=== PATIENT | female | born 1960 | race Caucasian/White ===

== ENCOUNTER 2016-09-12 09:45 | Emergency (ER) | payer MEDICARE, MEDICAID ==
[2016-09-12] MEDS ORDERED: Albuterol/Ipratropium 3.0-0.5 MG/3 ML Neb Soln NEB ONE (10:40)
--- NOTE | 2016-09-12 11:20 | EDM.PDOC ---
[id number]: POSSIBLE PNEMONIA 02 SATS 83-85% Time Seen by Provider: 09/12/16 10:20 Source: Reports: Patient, Provider History Limitations: Reports: No limitations - History of Present Illness INITIAL COMMENTS - FREE TEXT/NARRATIVE: 48-year-old female with COPD and chronic lung lesions was in the [facility] yesterday for a pulmonary consultation. A CT of her chest was obtained and results were discussed with her. She had low oxygen saturations in the 60s, which reshma with oxygen supplementation and they wanted to admit her to the hospital but she refused. She got home okay, today she went to the clinic for a recheck and her sats were in the 80s so they sent her immediately to the emergency room. On oxygen 3 L she is at 94%. She has no fevers or chills, no productive cough or other complaints. Severity: moderate Improves with: Reports: Other (Oxygen markedly improves her symptoms and O2 saturation) - Related Data Allergies/ADRs: Allergies Allergy/AdvReac Type Severity Reaction Status Date / Time No Known Allergies Allergy Verified 09/12/16 10:16 Home Meds: Home Meds Albuterol Sulfate [Proair Hfa] 2 puff INH QID 10/12/14 [History] Albuterol [Proventil Neb Soln] 1 vial INH QID PRN 10/12/14 [History] Aspirin [Halfprin] 1 tab PO DAILY 10/12/14 [History] Budesonide/Formoterol [Symbicort 160-4.5 MCG] 2 puff INH BID 10/12/14 [History] Cholecalciferol (Vitamin D3) [Vitamin D] 1 cap PO DAILY 10/12/14 [History] Clopidogrel [Plavix] 1 tab PO DAILY 10/12/14 [History] Metoprolol Tartrate 1 tab PO BID 10/12/14 [History] Mirtazapine [Remeron] 1 tab PO BEDTIME 10/12/14 [History] Nitroglycerin [Nitrostat] 1 tab SL ASDIRECTED 10/12/14 [History] Tiotropium [Spiriva HandiHaler] 1 cap INH DAILY 10/12/14 [History] tiZANidine HCl [Zanaflex] 1 tab PO Q8H PRN 10/12/14 [History] Past Medical History HEENT History: Reports: Impaired vision Cardiovascular History: Reports: [place], SOB on exertion Respiratory History: Reports: COPD 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: , 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 , Other (see below) Other OB/BYN History: c sections x3 Psychiatric History: Reports: Depression Oncologic (Cancer) History: Reports: Lung Other Oncologic History: tumor right leg x3 - Infectious Disease History Infectious Disease History: Reports: Chicken pox - Past Surgical History HEENT Surgical History: Reports: Tonsillectomy Other Neurological Surgeries/Procedures: cervical spine surgery Musculoskeletal Surgical History: Reports: Other (see below) Other Musculoskeletal Surgeries/Procedures:: neck surgery Social & Family History - Tobacco Use Smoking Status *Q: Never Smoker Years of Tobacco use: 30 Packs/Tins Daily: 1 Used Tobacco, but Quit: Yes Month Tobacco Last Used: september Second Hand Smoke Exposure: No - Caffeine Use Caffeine Use: Reports: Soda - Recreational Drug Use Recreational Drug Use: No ED ROS GENERAL - Review of Systems Review Of Systems: See Below Constitutional: Denies: fever, chills HEENT: Reports: No symptoms Respiratory: Reports: Shortness of Breath, Cough. Denies: Sputum Cardiovascular: Denies: Chest pain Endocrine: Reports: fatigue GI/Abdominal: Denies: Abdominal pain : Reports: no symptoms Musculoskeletal: Reports: no symptoms Skin: Reports: no symptoms Neurological: Denies: Headache Psychiatric: Reports: No symptoms ED EXAM, GENERAL - Physical Exam Exam: See Below Exam Limited By: No limitations General Appearance: alert, mild distress (Had some mild increased respiratory effort but overall fairly comfortable) Respiratory/Chest: decreased breath sounds (Diffuse decreased breath sounds) Cardiovascular: regular rate, rhythm Extremities: normal inspection. No: pedal edema Neurological: alert, oriented Psychiatric: normal affect, normal mood Skin Exam: Warm, Dry Course - Vital Signs Last Recorded V/S: Last Vital Signs Temp 96.8 F 09/12/16 10:29 Pulse 66 09/12/16 11:24 Resp 18 09/12/16 11:24 BP 115/75 09/12/16 11:24 Pulse Ox 92 L 09/12/16 11:24 - Orders/Labs/Meds Orders: Active Orders 24 hr Category Date Time Status RT Aerosol Therapy [RC] ASDIRECTED Care 09/12/16 10:41 Active Meds: Medications Discontinued Medications Generic Name Dose Route Start Last Admin Trade Name Freq PRN Reason Stop Dose Admin Albuterol/Ipratropium 3 ml 09/12/16 10:40 09/12/16 10:49 Duoneb 3.0-0.5 Mg/3 Ml NEB 09/12/16 10:41 3 ml ONETIME ONE Administration Methylprednisolone Sodium Succinate 125 mg 09/12/16 12:19 09/12/16 12:23 Solu-Medrol IVPUSH 09/12/16 12:20 125 mg ONETIME ONE Administration - Re-Assessments/Exams Free Text/Narrative Re-Assessment/Exam: 09/12/16 11:20 Patient was given a DuoNeb, and a two-view chest x-ray was obtained while the patient was off of O2. Her O2 saturations were rechecked when she returned from the chest x-ray. 09/12/16 12:35 O2 saturations on return from x-ray were 88-91% and she had no significant shortness of breath. Review of her past records show she has chronic advanced COPD and likely her O2 saturations are not normal on her best day. She'll be placed on a course of Zithromax, and 60 mg of prednisone daily starting tomorrow and was given 125 mg of Solu-Medrol IV today. She will return if worsening. Departure - Departure Time of Disposition: 12:45 Disposition: Home, Self-Care 01 Condition: fair Clinical Impression: COPD exacerbation, Chronic respiratory failure with hypoxia Instructions: Chronic Obstructive Pulmonary Disease, [id number] Referrals: Treva Palacios MD [Primary Care Provider] - Forms: ED Department Discharge Care Plan Goals: Take antibiotic as prescribed, and takes 6 pills of prednisone each morning with food for the next 5 days starting tomorrow, Friday. Continue your other regular medications and return if worsening or concerns. - My Orders Last 24 Hours: My Active Orders 09/12/16 10:41 RT Aerosol Therapy [RC] ASDIRECTED - Assessment/Plan Last 24 Hours: My Active Orders 09/12/16 10:41 RT Aerosol Therapy [RC] ASDIRECTED
[2016-09-12 11:26] VITALS: BP 115/75
[2016-09-12] MEDS ORDERED: methylPREDNISolone Sodium Succinate 125 MG/2 ML SDV IVPUSH ONE (12:19)
--- NOTE | 2016-09-12 12:30 | CR ---
Heart size within normal limits. Postsurgical changes at the lungs medially. No focal consolidation. No pneumothorax. Nodular densities likely indicate nipple shadows and could be confirmed with nippl e markers.
== END 2016-09-12 12:45 | disposition home or self-care (01) ==
LOC: JP.ED 09:45
DX: J96.11 Chronic respiratory failure with hypoxia (principal); J44.1 Chronic obstructive pulmonary disease with (acute) exacerbation; I25.2 Old myocardial infarction; F32.9 Major depressive disorder, single episode, unspecified; Z98.890 Other specified postprocedural states; Z79.82 Long term (current) use of aspirin; Z79.899 Other long term (current) drug therapy
CPT/HCPCS: 71020; 94640; 96374; 99284; J2930; J7620

== ENCOUNTER 2017-09-20 15:30 | Inpatient (IN) | payer MEDICARE, MEDICAID ==
[2017-09-20] MEDS ORDERED: Albuterol 0.083% 2.5 MG/3 ML Neb Soln NEB ONE (17:14)
[2017-09-20] MEDS ORDERED: methylPREDNISolone Sodium Succinate 125 MG/2 ML SDV IVPUSH ONE (17:16)
--- NOTE | 2017-09-20 17:17 | EDM.PDOC ---
ED HPI GENERAL MEDICAL PROBLEM - General Chief Complaint: Respiratory Problem Stated Complaint: ILLNESS/SOB Time Seen by Provider: 09/20/17 17:16 Source of Information: Reports: Patient History Limitations: Reports: No Limitations - History of Present Illness INITIAL COMMENTS - FREE TEXT/NARRATIVE: pt arrived with low o2 sats in the low 8o range. She is not on o2 at home. Onset: Gradual Duration: Hour(s): Location: Reports: Chest Associated Symptoms: Reports: Cough, Fever/Chills, Shortness of Breath - Related Data Allergies Allergy/AdvReac Type Severity Reaction Status Date / Time No Known Allergies Allergy Verified 09/12/16 10:16 Home Meds: Home Meds Albuterol Sulfate [Proair Hfa] 2 puff INH QID 10/12/14 [History] Albuterol [Proventil Neb Soln] 1 vial INH QID PRN 10/12/14 [History] Aspirin [Halfprin] 1 tab PO DAILY 10/12/14 [History] Budesonide/Formoterol [Symbicort 160-4.5 MCG] 2 puff INH BID 10/12/14 [History] Cholecalciferol (Vitamin D3) [Vitamin D] 1 cap PO DAILY 10/12/14 [History] Clopidogrel [Plavix] 1 tab PO DAILY 10/12/14 [History] Metoprolol Tartrate 1 tab PO BID 10/12/14 [History] Mirtazapine [Remeron] 1 tab PO BEDTIME 10/12/14 [History] Nitroglycerin [Nitrostat] 1 tab SL ASDIRECTED 10/12/14 [History] Tiotropium [Spiriva HandiHaler] 1 cap INH DAILY 10/12/14 [History] tiZANidine HCl [Zanaflex] 1 tab PO Q8H PRN 10/12/14 [History] atorvaSTATin [Lipitor] 1 tab PO BEDTIME 09/20/17 [History] Past Medical History HEENT History: Reports: Impaired Vision Cardiovascular History: Reports: [place], SOB on Exertion Respiratory History: Reports: 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: , 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 , Other (See Below) Other OB/BYN History: c sections x3 Psychiatric History: Reports: Depression Oncologic (Cancer) History: Reports: Lung Other Oncologic History: tumor right leg x3 - Infectious Disease History Infectious Disease History: Reports: Chicken Pox - Past Surgical History Other Neurological Surgeries/Procedures: cervical spine surgery Musculoskeletal Surgical History: Reports: Other (See Below) Social & Family History - Tobacco Use Smoking Status *Q: Former Smoker Years of Tobacco use: 30 Packs/Tins Daily: 1 Used Tobacco, but Quit: Yes Month/Year Tobacco Last Used: 15yrs Second Hand Smoke Exposure: No - Caffeine Use Caffeine Use: Reports: Soda - Recreational Drug Use Recreational Drug Use: No ED ROS GENERAL - Review of Systems Review Of Systems: See Below Constitutional: Reports: Fever, Other ( pt had a temp of 100. ) HEENT: Reports: No Symptoms Respiratory: Reports: Shortness of Breath, Wheezing, Cough, Sputum Cardiovascular: Reports: No Symptoms Endocrine: Reports: No Symptoms GI/Abdominal: Reports: No Symptoms : Reports: No Symptoms Musculoskeletal: Reports: No Symptoms Skin: Reports: No Symptoms Neurological: Reports: No Symptoms ED EXAM, GENERAL - Physical Exam Exam: See Below Free Text/Narrative:: pt arrived with sob and wheezing. She was very sob on arrival and clayton o2 sats in the 79 range. She was on 3 liters at first and she is now on 2 liters. Exam Limited By: No Limitations General Appearance: Alert, Mild Distress Ears: Normal TMs Nose: Normal Inspection Throat/Mouth: Normal Inspection, Other (mouth does look irritated. ) Neck: Normal Inspection Respiratory/Chest: Respiratory Distress, Decreased Breath Sounds, Wheezing, Other (pt has had increased cough with some sputum) Cardiovascular: Regular Rate, Rhythm GI/Abdominal: Soft, Non-Tender (Female) Exam: Deferred Rectal (Female) Exam: Deferred Back Exam: Normal Inspection Extremities: Normal Inspection Neurological: Alert, Oriented, Normal Cognition Psychiatric: Anxious Course - Vital Signs Last Recorded V/S: Last Vital Signs Temp 35.7 C 09/20/17 16:09 Pulse 92 09/20/17 18:14 Resp 22 H 09/20/17 18:14 BP 156/70 H 09/20/17 18:14 Pulse Ox 90 L 09/20/17 18:14 - Orders/Labs/Meds Orders: Active Orders 24 hr Category Date Time Status RT Aerosol Therapy [RC] ASDIRECTED Care 09/20/17 17:14 Active Chest 2V [CR] Stat Exams 09/20/17 17:14 Taken Sodium Chloride 0.9% [Normal Saline] 1,000 ml Med 09/20/17 18:30 Ordered IV ASDIRECTED Sodium Chloride 0.9% [Saline Flush] Med 09/20/17 17:15 Active 10 ml FLUSH ASDIRECTED PRN Saline Lock Insert [OM.PC] Routine Oth 09/20/17 17:15 Ordered Medication Orders Sodium Chloride (Normal Saline) 1,000 mls @ 250 mls/hr IV ASDIRECTED HERBER Sodium Chloride (Saline Flush) 10 ml FLUSH ASDIRECTED PRN PRN Reason: Keep Vein Open Last Admin: 09/20/17 17:36 Dose: 10 ml Labs: Laboratory Tests 09/20/17 09/20/17 09/20/17 Range/Units 17:23 17:31 17:31 WBC 5.8 (4.5-11.0) K/uL RBC 5.07 (3.30-5.50) M/uL Hgb 14.7 (12.0-15.0) g/dL Hct 46.6 (36.0-48.0) % MCV 92 (80-98) fL MCH 29 (27-31) pg MCHC 32 (32-36) % Plt Count 175 (150-400) K/uL Neut % (Auto) 64 (36-66) % Lymph % (Auto) 18 L (24-44) % Carter % (Auto) 13 H (2-6) % Eos % (Auto) 5 H (2-4) % Baso % (Auto) 1 (0-1) % Puncture Site Rt.radial ABG pH 7.330 L (7.350-7.450) ABG pCO2 64.3 H (35.0-42.0) mmHg ABG pO2 57.4 L (75.0-100.0) mmHg ABG HCO3 32.9 H (22.0-26.0) mmol/L ABG Total CO2 29.4 H (21.0-25.0) mmol/L ABG O2 Saturation 85.7 L (95.0-98.0) % ABG O2 Content 17.2 (15.0-23.0) %vol ABG Base Excess 5.2 mm/L ABG Hemoglobin 14.5 (12.0-16.0) g/dL ABG Oxyhemoglobin 84.6 % ABG Carboxyhemoglobin 0.9 (0.0-1.6) % ABG Methemoglobin 0.4 % Armen Test Passed O2 Delivery Device Nasal cannula Oxygen Flow Rate 2 L Sodium 140 (140-148) mmol/L Potassium 4.0 (3.6-5.2) mmol/L Chloride 102 (100-108) mmol/L Carbon Dioxide 32 (21-32) mmol/L Anion Gap 5.6 (5.0-14.0) mmol/L BUN 14 (7-18) mg/dL Creatinine 0.7 (0.6-1.0) mg/dL Est Cr Clr Drug Dosing 57.63 mL/min Estimated GFR (MDRD) > 60 (>60) Glucose 159 H (74-106) mg/dL Calcium 9.1 (8.5-10.1) mg/dL Total Bilirubin 0.3 (0.2-1.0) mg/dL AST 51 H D (15-37) U/L ALT 43 (12-78) U/L Alkaline Phosphatase 68 (46-116) U/L Total Protein 7.4 (6.4-8.2) g/dL Albumin 3.9 (3.4-5.0) g/dL Globulin 3.5 (2.3-3.5) g/dL Albumin/Globulin Ratio 1.1 L (1.2-2.2) Meds: Medications Generic Name Dose Route Start Last Admin Trade Name Freq PRN Reason Stop Dose Admin Sodium Chloride 1,000 mls @ 250 mls/hr 09/20/17 18:30 Normal Saline IV ASDIRECTED HERBER Sodium Chloride 10 ml 09/20/17 17:15 09/20/17 17:36 Saline Flush FLUSH 10 ml ASDIRECTED PRN Administration Keep Vein Open Discontinued Medications Generic Name Dose Route Start Last Admin Trade Name Freq PRN Reason Stop Dose Admin Albuterol 2.5 mg 09/20/17 17:14 09/20/17 17:36 Proventil Neb Soln NEB 09/20/17 17:15 2.5 mg ONETIME ONE Administration Methylprednisolone Sodium Succinate 125 mg 09/20/17 17:16 09/20/17 17:36 Solu-Medrol IVPUSH 09/20/17 17:17 125 mg ONETIME ONE Administration - Re-Assessments/Exams Free Text/Narrative Re-Assessment/Exam: 09/20/17 18:21 chest xray shows severe copd. There may be an infiltrate in the rt lower lobe. Her wbc is not elevated. Her blood gases show clayton ph of 7.33 and her co2 is 64. Departure - Departure Time of Disposition: 18:23 Disposition: Admitted As Inpatient 64 Condition: Fair Clinical Impression: COPD with respiratory failure, acute, CO2 retention - Discharge Information Referrals: PCP,None [Primary Care Provider] - Forms: ED Department Discharge Care Plan Goals: admit to Dr mitchell. - My Orders Last 24 Hours: My Active Orders 09/20/17 17:14 RT Aerosol Therapy [RC] ASDIRECTED Chest 2V [CR] Stat 09/20/17 17:15 Sodium Chloride 0.9% [Saline Flush] 10 ml FLUSH ASDIRECTED PRN Saline Lock Insert [OM.PC] Routine 09/20/17 18:30 Sodium Chloride 0.9% [Normal Saline] 1,000 ml IV ASDIRECTED - Assessment/Plan Last 24 Hours: My Active Orders 09/20/17 17:14 RT Aerosol Therapy [RC] ASDIRECTED Chest 2V [CR] Stat 09/20/17 17:15 Sodium Chloride 0.9% [Saline Flush] 10 ml FLUSH ASDIRECTED PRN Saline Lock Insert [OM.PC] Routine 09/20/17 18:30 Sodium Chloride 0.9% [Normal Saline] 1,000 ml IV ASDIRECTED
[2017-09-20] MEDS: Sodium Chloride 0.9% 10 ML Syringe FLUSH PRN (17:36)
[2017-09-20] MEDS ORDERED: Sodium Chloride 0.9% 1,000 ML IV SCH (18:30)
--- NOTE | 2017-09-20 19:29 | PCM.HP ---
H&P History of Present Illness - General Date of Service: 09/20/17 Admit Problem/Dx: Admission Diagnosis/Problem Admission Diagnosis/Problem Acute bronchitis Source of Information: Patient, Family, Provider History Limitations: Reports: No Limitations - History of Present Illness Initial Comments - Free Text/Narative: Emily presents to the emergency room today with several days of progressive shortness of breath and occasional cough. Symptoms were very severe last night but she chose to wait until today for evaluation. She reports that she is short of breath with any activity and even at rest. She did have a fever of 100 last night. She has an occasional cough that has produced yellow sputum. She does not have any chest pain. She has had some nausea and upset stomach but no vomiting. Appetite has been okay. She has been weak compared to baseline but has not had any falls. No change in bowel or bladder habits. No recent antibiotics or steroids. No notable sick contacts other than possibly a niece. Workup in the emergency room was suggestive of acute bronchitis with a COPD exacerbation and respiratory failure with hypoxia and hypercapnia. She has received steroids and nebulizer treatment. She will be admitted for further management. - Related Data Allergies/Adverse Reactions: Allergies Allergy/AdvReac Type Severity Reaction Status Date / Time No Known Allergies Allergy Verified 09/12/16 10:16 Home Medications: Home Meds Albuterol Sulfate [Proair Hfa] 2 puff INH QID 10/12/14 [History] Albuterol [Proventil Neb Soln] 1 vial INH QID PRN 10/12/14 [History] Aspirin [Halfprin] 81 mg PO DAILY 10/12/14 [History] Budesonide/Formoterol [Symbicort 160-4.5 MCG] 2 puff INH BID 10/12/14 [History] Cholecalciferol (Vitamin D3) [Vitamin D] 1 cap PO DAILY 10/12/14 [History] Clopidogrel [Plavix] 75 mg PO DAILY 10/12/14 [History] Mirtazapine [Remeron] 30 mg PO BEDTIME 10/12/14 [History] Nitroglycerin [Nitrostat] 1 tab SL ASDIRECTED 10/12/14 [History] Tiotropium [Spiriva HandiHaler] 18 mcg INH DAILY 10/12/14 [History] tiZANidine HCl [Zanaflex] 4 mg PO Q8H PRN 10/12/14 [History] Metoprolol Tartrate 12.5 mg PO BID 09/20/17 [History] atorvaSTATin [Lipitor] 80 mg PO BEDTIME 09/20/17 [History] Past Medical History HEENT History: Reports: Impaired Vision 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, SOB 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 Respiratory History: Reports: 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: , 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 , 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 (See Below) Other OB/BYN History: c sections x3 Psychiatric History: Reports: Depression Oncologic (Cancer) History: Reports: Lung Other Oncologic History: tumor right leg x3 - Infectious Disease History Infectious Disease History: Reports: Chicken Pox - Past Surgical History Other Neurological Surgeries/Procedures: cervical spine surgery Musculoskeletal Surgical History: Reports: Other (See Below) Social & Family History - Family History Cardiac: Reports: CAD - Tobacco Use Smoking Status *Q: Former Smoker Years of Tobacco use: 30 Packs/Tins Daily: 1 Used Tobacco, but Quit: Yes Month/Year Tobacco Last Used: 15yrs Second Hand Smoke Exposure: No - Caffeine Use Caffeine Use: Reports: Soda - Alcohol Use Alcohol Use History: No - Recreational Drug Use Recreational Drug Use: No H&P Review of Systems - Review of Systems: Review Of Systems: See Below Free Text/Narrative: A complete 12 point review of systems was obtained. Pertinent positives and negatives are noted in the history of present illness. All other systems were reviewed and were negative except as noted. Exam - Exam Exam: See Below - Vital Signs Vital Signs: Last Vital Signs Temp 35.7 C 09/20/17 16:09 Pulse 92 09/20/17 18:14 Resp 22 H 09/20/17 18:14 BP 156/70 H 09/20/17 18:14 Pulse Ox 90 L 09/20/17 18:14 Weight: 42.184 kg - Exam Quality Assessment: Supplemental Oxygen General: Alert, Oriented, Cooperative, Mild Distress HEENT: Conjunctiva Clear. No: Mucosa Moist & [place] (dry), Scleral Icterus Neck: Supple, Trachea Midline. No: Lymphadenopathy Lungs: Wheezing (Diffuse expiratory). No: Normal Respiratory Effort (Increased work of breathing), Crackles Cardiovascular: Regular Rate, Regular Rhythm GI/Abdominal Exam: Normal Bowel Sounds, Soft, Non-Tender, No Distention Back Exam: Normal Inspection, Full Range of Motion Extremities: Normal Inspection, No Pedal Edema. No: Increased Warmth Skin: Warm, Dry Neuro Extensive - Mental Status: Alert, Oriented x3, Nl Response to Commands Neuro Extensive - Motor, Sensory, Reflexes: No: Dysarthria, Abnormal Motor, Tremor Psychiatric: Alert, Normal Affect - Patient Data Lab Results Last 24 hrs: Laboratory Results - last 24 hr 09/20/17 09/20/17 09/20/17 Range/Units 17:23 17:31 17:31 WBC 5.8 (4.5-11.0) K/uL RBC 5.07 (3.30-5.50) M/uL Hgb 14.7 (12.0-15.0) g/dL Hct 46.6 (36.0-48.0) % MCV 92 (80-98) fL MCH 29 (27-31) pg MCHC 32 (32-36) % Plt Count 175 (150-400) K/uL Neut % (Auto) 64 (36-66) % Lymph % (Auto) 18 L (24-44) % [place] % (Auto) 13 H (2-6) % Eos % (Auto) 5 H (2-4) % Baso % (Auto) 1 (0-1) % Puncture Site Rt.radial ABG pH 7.330 L (7.350-7.450) ABG pCO2 64.3 H (35.0-42.0) mmHg ABG pO2 57.4 L (75.0-100.0) mmHg ABG HCO3 32.9 H (22.0-26.0) mmol/L ABG Total CO2 29.4 H (21.0-25.0) mmol/L ABG O2 Saturation 85.7 L (95.0-98.0) % ABG O2 Content 17.2 (15.0-23.0) %vol ABG Base Excess 5.2 mm/L ABG Hemoglobin 14.5 (12.0-16.0) g/dL ABG Oxyhemoglobin 84.6 % ABG Carboxyhemoglobin 0.9 (0.0-1.6) % ABG Methemoglobin 0.4 % Armen Test Passed O2 Delivery Device Nasal cannula Oxygen Flow Rate 2 L Sodium 140 (140-148) mmol/L Potassium 4.0 (3.6-5.2) mmol/L Chloride 102 (100-108) mmol/L Carbon Dioxide 32 (21-32) mmol/L Anion Gap 5.6 (5.0-14.0) mmol/L BUN 14 (7-18) mg/dL Creatinine 0.7 (0.6-1.0) mg/dL Est Cr Clr Drug Dosing 57.63 mL/min Estimated GFR (MDRD) > 60 (>60) Glucose 159 H (74-106) mg/dL Calcium 9.1 (8.5-10.1) mg/dL Total Bilirubin 0.3 (0.2-1.0) mg/dL AST 51 H D (15-37) U/L ALT 43 (12-78) U/L Alkaline Phosphatase 68 (46-116) U/L Total Protein 7.4 (6.4-8.2) g/dL Albumin 3.9 (3.4-5.0) g/dL Globulin 3.5 (2.3-3.5) g/dL Albumin/Globulin Ratio 1.1 L (1.2-2.2) Result Diagrams: 09/20/17 17:31 09/20/17 17:31 Imaging Impressions Last 24 hrs: Chest x-ray - images personally reviewed - there is hyperinflation but no evidence for mass, effusion or infiltrate. Heart size is normal. *Q Meaningful Use (ADM) - VTE Risk Assess *Q Each Risk Factor Represents 1 Point: Age 41 - 59 years, Serious lung disease including pneumonia, Abnormal Pulmonary Function (COPD) Total Score 1 Point Risk Factors: 3 Each Risk Factor Represents 2 Points: None Total Score 2 Point Risk Factors: 0 Each Risk Factor Represents 3 Points: None Total Score 3 Point Risk Factors: 0 Each Risk Factor Represents 5 Points: None Total Score 5 Point Risk Factors: 0 Venous Thromboembolism Risk Factor Score *Q: 3 - Problem List (1) Acute bronchitis SNOMED Code(s): 07873300 ICD Code: J20.9 - ACUTE BRONCHITIS, UNSPECIFIED Status: Acute Current Visit: Yes Qualifiers: Bronchitis organism: unspecified organism Qualified Code(s): J20.9 - Acute bronchitis, unspecified (2) COPD exacerbation SNOMED Code(s): 728814362218456 ICD Code: J44.1 - CHRONIC OBSTRUCTIVE PULMONARY DISEASE W (ACUTE) EXACERBATION Status: Acute Current Visit: No (3) Acute respiratory failure with hypoxia and hypercapnia SNOMED Code(s): 39240708, 402084714 ICD Code: J96.01 - ACUTE RESPIRATORY FAILURE WITH HYPOXIA; J96.02 - ACUTE RESPIRATORY FAILURE WITH HYPERCAPNIA Status: Acute Current Visit: Yes (4) Coronary artery disease SNOMED Code(s): 64055203 ICD Code: I25.10 - ATHSCL HEART DISEASE OF [place] CORONARY ARTERY W/O ANG PCTRS Status: Chronic Current Visit: Yes Qualifiers: Coronary Disease-Associated Artery/Lesion type: [place] artery [place] vs. transplanted heart: [place] heart Associated angina: without angina Qualified Code(s): I25.10 - Atherosclerotic heart disease of [place] coronary artery without angina pectoris Problem List Initiated/Reviewed/Updated: Yes Orders Last 24hrs: Active Orders 24 hr Category Date Time Status Patient Status Manage Transfer [TRANSFER] Routine ADT 09/20/17 19:16 Ordered RT Aerosol Therapy [RC] ASDIRECTED Care 09/20/17 17:14 Active Chest 2V [CR] Stat Exams 09/20/17 17:14 Taken Sodium Chloride 0.9% [Normal Saline] 1,000 ml Med 09/20/17 18:30 Active IV ASDIRECTED Sodium Chloride 0.9% [Saline Flush] Med 09/20/17 17:15 Active 10 ml FLUSH ASDIRECTED PRN Saline Lock Insert [OM.PC] Routine Oth 09/20/17 17:15 Ordered Resuscitation Status Routine Resus Stat 09/20/17 19:17 Ordered Medication Orders Sodium Chloride (Normal Saline) 1,000 mls @ 250 mls/hr IV ASDIRECTED HERBER Sodium Chloride (Saline Flush) 10 ml FLUSH ASDIRECTED PRN PRN Reason: Keep Vein Open Last Admin: 09/20/17 17:36 Dose: 10 ml Assessment/Plan Comment:: ASSESSMENT AND PLAN - Acute bronchitis with COPD exacerbation - complicated by acute respiratory failure with hypoxia and hypercapnia. She did have a fever and has had a change in her sputum raising concern for bacterial infection. She is a little better with treatment provided in the emergency room which included steroids and nebulizers. She is not normally on oxygen. Significant wheezing and very poor air movement. -Doxycycline -IV steroids -Scheduled and as needed nebulizers -Supplement oxygen -Continue home medications Coronary artery disease - history of myocardial infarction. No active symptoms. -Continue home medical management Maintenance issues - - DVT prophylaxis - mechanical - GI prophylaxis - not indicated - Nutrition - regular diet - Bello catheter - not indicated CODE STATUS - full code Admission justification - This patient will be admitted for inpatient services and is medically appropriate meeting medical necessity for inpatient admission as outlined in my documentation. I reasonably expect the patient will require inpatient services that span a period time over 2 midnights. I reasonably expect this patient to be discharged or transferred within 96 hours after admission to the [facility]. Disposition - anticipate discharge to home after the hospital stay Primary care physician - Dr Philip Morales M.D.
[2017-09-20] MEDS ORDERED: Benzonatate 100 MG Cap PO PRN (20:02)
[2017-09-20] MEDS ORDERED: tiZANidine 4 MG Tab PO PRN (20:02)
[2017-09-20] MEDS ORDERED: Ondansetron 4 MG Tab.DIS PO PRN (20:02)
[2017-09-20] MEDS ORDERED: Ibuprofen 600 MG Tab PO PRN (20:02)
[2017-09-20] MEDS ORDERED: Codeine/guaiFENesin 100mg-10 MG/5 ML Syrup 10 ML Cup PO PRN (20:02)
[2017-09-20] MEDS ORDERED: Acetaminophen 325 MG Tab PO PRN (20:02)
[2017-09-20] MEDS ORDERED: Formoterol/Mometasone 200-5 MCG 8.8 GM Inhaler IH SCH (21:00)
[2017-09-20] MEDS ORDERED: atorvaSTATin 20 MG Tab ONE (21:23)
[2017-09-20] MEDS: atorvaSTATin 20 MG Tab PO SCH (21:25)
[2017-09-20] MEDS: Metoprolol Tartrate 25 MG Tab PO SCH (21:26)
[2017-09-20] MEDS: Mirtazapine 15 MG Tab PO SCH (21:26)
[2017-09-20] MEDS: Albuterol/Ipratropium 3.0-0.5 MG/3 ML Neb Soln NEB SCH (21:30)
[2017-09-20] MEDS: Doxycycline 100 MG Cap PO SCH (21:33)
[2017-09-20] MEDS: Sodium Chloride 0.9% 1,000 ML IV SCH (21:54)
[2017-09-21] MEDS: Albuterol 0.083% 2.5 MG/3 ML Neb Soln NEB PRN (01:50)
[2017-09-21] MEDS: methylPREDNISolone Sodium Succinate 125 MG/2 ML SDV IVPUSH SCH ×3 (01:51→18:00)
[2017-09-21] MEDS: Morphine 10 MG/0.5 ML Oral Syringe PO PRN ×2 (01:51→21:09)
[2017-09-21] MEDS: LORazepam 0.5 MG Tab PO PRN (02:06)
[2017-09-21] MEDS: Albuterol/Ipratropium 3.0-0.5 MG/3 ML Neb Soln NEB SCH ×4 (06:10→20:27)
[2017-09-21] MEDS: Sodium Chloride 0.9% 1,000 ML IV SCH (08:01)
[2017-09-21] MEDS: Formoterol/Mometasone 200-5 MCG 8.8 GM Inhaler IH SCH ×2 (08:25→20:28)
[2017-09-21] MEDS: Tiotropium Inhaler 18 MCG Inhalation Powder Cap Kit of 5 INH SCH (08:29)
[2017-09-21] MEDS: Aspirin 81 MG Tab.EC PO SCH (08:32)
[2017-09-21] MEDS: Metoprolol Tartrate 25 MG Tab PO SCH ×2 (08:32→20:29)
[2017-09-21] MEDS ORDERED: Tiotropium Inhaler 18 MCG Inhalation Powder Cap Kit of 5 INH SCH (09:00)
[2017-09-21] MEDS: Doxycycline 100 MG Cap PO SCH (09:20)
[2017-09-21] MEDS: Clopidogrel 75 MG Tab PO SCH (09:20)
--- NOTE | 2017-09-21 10:27 | PCM.PN ---
- General Info Date of Service: 09/21/17 Functional Status: Reports: Pain Controlled, Tolerating Diet - Review of Systems General: Reports: Weakness. Denies: Fever Pulmonary: Reports: Shortness of Breath, Cough, Wheezing Systems Review Comment:: there were no acute events overnight. Patient did have some difficulty with low oxygen saturations last night that did respond to nebulizer treatment. She reports that she did not sleep well and is very tired this morning. She is somnolent and does not answer all the questions. She is currently on approximately 3 L/m of oxygen. She has not had any fevers. White count remains normal. - Patient Data Vitals - Most Recent: Last Vital Signs Temp 35.8 C 09/21/17 08:09 Pulse 92 09/21/17 08:32 Resp 30 H 09/21/17 08:09 BP 159/81 H 09/21/17 08:32 Pulse Ox 86 L 09/21/17 08:34 Weight - Most Recent: 42.184 kg I&O - Last 24 Hours: Intake & Output 09/20/17 09/21/17 09/21/17 22:59 06:59 14:59 Intake Total 649 Balance 649 Lab Results Last 24 Hours: Laboratory Results - last 24 hr 09/20/17 09/20/17 09/20/17 Range/Units 17:23 17:31 17:31 WBC 5.8 (4.5-11.0) K/uL RBC 5.07 (3.30-5.50) M/uL Hgb 14.7 (12.0-15.0) g/dL Hct 46.6 (36.0-48.0) % MCV 92 (80-98) fL MCH 29 (27-31) pg MCHC 32 (32-36) % Plt Count 175 (150-400) K/uL Neut % (Auto) 64 (36-66) % Lymph % (Auto) 18 L (24-44) % [place] % (Auto) 13 H (2-6) % Eos % (Auto) 5 H (2-4) % Baso % (Auto) 1 (0-1) % Puncture Site Rt.radial ABG pH 7.330 L (7.350-7.450) ABG pCO2 64.3 H (35.0-42.0) mmHg ABG pO2 57.4 L (75.0-100.0) mmHg ABG HCO3 32.9 H (22.0-26.0) mmol/L ABG Total CO2 29.4 H (21.0-25.0) mmol/L ABG O2 Saturation 85.7 L (95.0-98.0) % ABG O2 Content 17.2 (15.0-23.0) %vol ABG Base Excess 5.2 mm/L ABG Hemoglobin 14.5 (12.0-16.0) g/dL ABG Oxyhemoglobin 84.6 % ABG Carboxyhemoglobin 0.9 (0.0-1.6) % ABG Methemoglobin 0.4 % Armen Test Passed O2 Delivery Device Nasal cannula Oxygen Flow Rate 2 L Sodium 140 (140-148) mmol/L Potassium 4.0 (3.6-5.2) mmol/L Chloride 102 (100-108) mmol/L Carbon Dioxide 32 (21-32) mmol/L Anion Gap 5.6 (5.0-14.0) mmol/L BUN 14 (7-18) mg/dL Creatinine 0.7 (0.6-1.0) mg/dL Est Cr Clr Drug Dosing 57.63 mL/min Estimated GFR (MDRD) > 60 (>60) Glucose 159 H (74-106) mg/dL Calcium 9.1 (8.5-10.1) mg/dL Magnesium (1.8-2.4) mg/dL Total Bilirubin 0.3 (0.2-1.0) mg/dL AST 51 H D (15-37) U/L ALT 43 (12-78) U/L Alkaline Phosphatase 68 (46-116) U/L Total Protein 7.4 (6.4-8.2) g/dL Albumin 3.9 (3.4-5.0) g/dL Globulin 3.5 (2.3-3.5) g/dL Albumin/Globulin Ratio 1.1 L (1.2-2.2) 09/21/17 09/21/17 Range/Units 05:18 05:18 WBC 3.3 L (4.5-11.0) K/uL RBC 5.06 (3.30-5.50) M/uL Hgb 14.6 (12.0-15.0) g/dL Hct 47.8 (36.0-48.0) % MCV 95 (80-98) fL MCH 29 (27-31) pg MCHC 31 L (32-36) % Plt Count 147 L (150-400) K/uL Neut % (Auto) (36-66) % Lymph % (Auto) (24-44) % [place] % (Auto) (2-6) % Eos % (Auto) (2-4) % Baso % (Auto) (0-1) % Puncture Site ABG pH (7.350-7.450) ABG pCO2 (35.0-42.0) mmHg ABG pO2 (75.0-100.0) mmHg ABG HCO3 (22.0-26.0) mmol/L ABG Total CO2 (21.0-25.0) mmol/L ABG O2 Saturation (95.0-98.0) % ABG O2 Content (15.0-23.0) %vol ABG Base Excess mm/L ABG Hemoglobin (12.0-16.0) g/dL ABG Oxyhemoglobin % ABG Carboxyhemoglobin (0.0-1.6) % ABG Methemoglobin % Armen Test O2 Delivery Device Oxygen Flow Rate L Sodium 142 (140-148) mmol/L Potassium 4.7 (3.6-5.2) mmol/L Chloride 103 (100-108) mmol/L Carbon Dioxide 31 (21-32) mmol/L Anion Gap 7.9 (5.0-14.0) mmol/L BUN 11 (7-18) mg/dL Creatinine 0.6 (0.6-1.0) mg/dL Est Cr Clr Drug Dosing 67.23 mL/min Estimated GFR (MDRD) > 60 (>60) Glucose 170 H (74-106) mg/dL Calcium 8.4 L (8.5-10.1) mg/dL Magnesium 2.0 (1.8-2.4) mg/dL Total Bilirubin (0.2-1.0) mg/dL AST (15-37) U/L ALT (12-78) U/L Alkaline Phosphatase (46-116) U/L Total Protein (6.4-8.2) g/dL Albumin (3.4-5.0) g/dL Globulin (2.3-3.5) g/dL Albumin/Globulin Ratio (1.2-2.2) Med Orders - Current: Current Medications Acetaminophen (Tylenol) 650 mg PO Q4H PRN PRN Reason: Pain (Mild 1-3)/fever Albuterol (Proventil Neb Soln) 2.5 mg NEB Q4H PRN PRN Reason: Shortness Of Breath/wheezing Last Admin: 09/21/17 01:50 Dose: 2.5 mg Albuterol/Ipratropium (Duoneb 3.0-0.5 Mg/3 Ml) 3 ml NEB QIDRT [facility] Aspirin (Halfprin) 81 mg PO DAILY [facility] Last Admin: 09/21/17 08:32 Dose: 81 mg Atorvastatin Calcium (Lipitor) 80 mg PO BEDTIME [facility] Last Admin: 09/20/17 21:25 Dose: 80 mg Benzonatate (Tessalon Perles) 100 mg PO TID PRN PRN Reason: Cough Clopidogrel Bisulfate (Plavix) 75 mg PO DAILY [facility] Last Admin: 09/21/17 09:20 Dose: 75 mg Doxycycline Hyclate (Vibramycin) 100 mg PO BID [facility] Last Admin: 09/21/17 09:20 Dose: 100 mg Guaifenesin/Codeine Phosphate (Robitussin Ac) 10 ml PO Q4H PRN PRN Reason: Cough Sodium Chloride (Normal Saline) 1,000 mls @ 100 mls/hr IV ASDIRECTED [facility] Last Admin: 09/21/17 08:01 Dose: 100 mls/hr Ibuprofen (Motrin) 600 mg PO Q6H PRN PRN Reason: Pain/Fever Lorazepam (Ativan) 0.5 mg PO Q4H PRN PRN Reason: Anxiety Last Admin: 09/21/17 02:06 Dose: 0.5 mg Methylprednisolone Sodium Succinate (Solu-Medrol) 62.5 mg IVPUSH Q8H [facility] Last Admin: 09/21/17 10:00 Dose: 62.5 mg Metoprolol Tartrate (Lopressor) 12.5 mg PO BID [facility] Last Admin: 09/21/17 08:32 Dose: 12.5 mg Mirtazapine (Remeron) 30 mg PO BEDTIME [facility] Last Admin: 09/20/17 21:26 Dose: 30 mg Mometasone Furoate/Formoterol Fumar (Dulera 200-5 Mcg) 2 puff IH BIDRT [facility] Last Admin: 09/21/17 08:25 Dose: 1 inhalation Morphine Sulfate (Morphine 10 Mg/0.5 Ml Oral Syringe) 5 mg PO Q4H PRN PRN Reason: Dyspnea Last Admin: 09/21/17 01:51 Dose: 5 mg Ondansetron HCl (Zofran Odt) 4 mg PO Q6H PRN PRN Reason: Nausea able to take PO Polyethylene Glycol (Miralax) 17 gm PO DAILY PRN PRN Reason: Constipation Senna/Docusate Sodium (Senna Plus) 1 tab PO BID PRN PRN Reason: Constipation Sodium Chloride (Saline Flush) 10 ml FLUSH ASDIRECTED PRN PRN Reason: Keep Vein Open Last Admin: 09/20/17 17:36 Dose: 10 ml Tiotropium [place] (Spiriva Handihaler) 18 mcg INH DAILY@0700 [facility] Last Admin: 09/21/17 08:29 Dose: 1 inhalation Tizanidine HCl (Zanaflex) 4 mg PO Q8H PRN PRN Reason: muscle spasms Discontinued Medications Albuterol (Proventil Neb Soln) 2.5 mg NEB ONETIME ONE Stop: 09/20/17 17:15 Last Admin: 09/20/17 17:36 Dose: 2.5 mg Albuterol/Ipratropium (Duoneb 3.0-0.5 Mg/3 Ml) 3 ml NEB QID [facility] Last Admin: 09/21/17 06:10 Dose: 3 ml Atorvastatin Calcium (Lipitor) Confirm Administered Dose 20 mg .ROUTE .STK-MED ONE Stop: 09/20/17 21:24 Last Admin: 09/20/17 21:33 Dose: Not Given Sodium Chloride (Normal Saline) 1,000 mls @ 250 mls/hr IV ASDIRECTED [facility] Methylprednisolone Sodium Succinate (Solu-Medrol) 125 mg IVPUSH ONETIME ONE Stop: 09/20/17 17:17 Last Admin: 09/20/17 17:36 Dose: 125 mg Mometasone Furoate/Formoterol Fumar (Dulera 200-5 Mcg) 2 puff IH BID [facility] Last Admin: 09/20/17 20:54 Dose: 2 puff - Exam Quality Assessment: Supplemental Oxygen General: Alert, Cooperative, No Acute Distress, Lethargic Neck: Supple Lungs: Wheezing (diffuse exp, R>L). No: Normal Respiratory Effort (mild increased work of breathing) GI/Abdominal Exam: Soft, No Distention Extremities: No Pedal Edema. No: Increased Warmth Skin: Warm, Dry Psy/Mental Status: Alert. No: Anxious - Problem List & Annotations (1) Acute bronchitis SNOMED Code(s): 28526648 Code(s): J20.9 - ACUTE BRONCHITIS, UNSPECIFIED Status: Acute Current Visit: Yes Qualifiers: Bronchitis organism: unspecified organism Qualified Code(s): J20.9 - Acute bronchitis, unspecified (2) COPD exacerbation SNOMED Code(s): 777181429774114 Code(s): J44.1 - CHRONIC OBSTRUCTIVE PULMONARY DISEASE W (ACUTE) EXACERBATION Status: Acute Current Visit: No (3) Acute respiratory failure with hypoxia and hypercapnia SNOMED Code(s): 56583035, 724066467 Code(s): J96.01 - ACUTE RESPIRATORY FAILURE WITH HYPOXIA; J96.02 - ACUTE RESPIRATORY FAILURE WITH HYPERCAPNIA Status: Acute Current Visit: Yes (4) Coronary artery disease SNOMED Code(s): 20839046 Code(s): I25.10 - ATHSCL HEART DISEASE OF [place] CORONARY ARTERY W/O ANG PCTRS Status: Chronic Current Visit: Yes Qualifiers: Coronary Disease-Associated Artery/Lesion type: [place] artery [place] vs. transplanted heart: [place] heart Associated angina: without angina Qualified Code(s): I25.10 - Atherosclerotic heart disease of [place] coronary artery without angina pectoris - Problem List Review Problem List Initiated/Reviewed/Updated: Yes - My Orders Last 24 Hours: My Active Orders 09/20/17 19:17 Resuscitation Status Routine 09/20/17 20:02 Patient Status [ADT] Routine Notify Provider Vital Signs [RC] ASDIRECTED Oxygen Therapy [RC] PRN RT Aerosol Therapy [RC] ASDIRECTED Up With Assistance [RC] ASDIRECTED VTE/DVT Education [RC] Per Unit Routine Vital Signs [RC] Q4H Acetaminophen [Tylenol] 650 mg PO Q4H PRN Albuterol [Proventil Neb Soln] 2.5 mg NEB Q4H PRN Benzonatate [Tessalon Perles] 100 mg PO TID PRN Codeine/guaiFENesin [Robitussin AC] 10 ml PO Q4H PRN Docusate Sodium/Sennosides [Senna Plus] 1 tab PO BID PRN Ibuprofen [Motrin] 600 mg PO Q6H PRN LORazepam [Ativan] 0.5 mg PO Q4H PRN Morphine [Morphine 10 MG/0.5 ML Oral Syringe] 5 mg PO Q4H PRN Ondansetron [Zofran ODT] 4 mg PO Q6H PRN Polyethylene Glycol 3350 [MiraLAX] 17 gm PO DAILY PRN Sodium Chloride 0.9% [Normal Saline] 1,000 ml IV ASDIRECTED tiZANidine [Zanaflex] 4 mg PO Q8H PRN Sequential Compression Device [OM.PC] Per Unit Routine 09/20/17 20:50 Pulse Oximetry Continuous Monitoring [OM.PC] Routine 09/20/17 20:51 Overnight Pulse Oximetry [RC] Click to Edit Pulse Oximetry Continuous Monitoring [OM.PC] Routine 09/20/17 21:00 Doxycycline [Vibramycin] 100 mg PO BID Metoprolol Tartrate [Lopressor] 12.5 mg PO BID Mirtazapine [Remeron] 30 mg PO BEDTIME atorvaSTATin [Lipitor] 80 mg PO BEDTIME 09/21/17 02:00 methylPREDNISolone Sod Succ [Solu-MEDROL] 62.5 mg IVPUSH Q8H 09/21/17 08:00 Mometasone/Formoterol [Dulera 200-5 MCG] 2 puff IH BIDRT Tiotropium [Spiriva HandiHaler] 18 mcg INH DAILY@0700 09/21/17 09:00 Aspirin [Halfprin] 81 mg PO DAILY Clopidogrel [Plavix] 75 mg PO DAILY 09/21/17 10:26 Convert IV to Saline Lock [OM.PC] Routine RT Acapella [RESPCARE] Routine 09/21/17 11:00 Albuterol/Ipratropium [DuoNeb 3.0-0.5 MG/3 ML] 3 ml NEB QIDRT 09/22/17 05:00 CBC W/O DIFF,HEMOGRAM [HEME] Timed (1) - Plan Plan:: ASSESSMENT AND PLAN - Acute bronchitis with COPD exacerbation - complicated by acute respiratory failure with hypoxia and hypercapnia. no fevers overnight but still a fair amount of suspicion for bacterial cause. Still has significant impairment in her flow with respiration. Tolerating current cares. Extremely dyspneic with any activity. -Doxycycline -IV steroids -Acapella -Scheduled and as needed nebulizers -Supplement oxygen -Continue home medications Coronary artery disease - history of myocardial infarction. No active symptoms. -Continue home medical management Maintenance issues - - DVT prophylaxis - mechanical - GI prophylaxis - not indicated - Nutrition - regular diet Disposition - anticipate discharge to home after the hospital stay Primary care physician - Dr Philip Morales M.D.
--- NOTE | 2017-09-21 19:01 | PCM.SN ---
- Free Text/Narrative Note: Pt has become more somnolent during the course of the day. Work of breathing appears to have increased. Oxygen saturations have remained stable. Blood pressure has remained stable. Arterial blood gases were obtained and they showed a PCO2 greater than 90. Patient will be transferred to the intensive care unit and noninvasive ventilation will be initiated. Antibiotics will be broadened to include levofloxacin and ceftriaxone. She is hardly on IV steroids. She has scheduled and as needed nebulizers available. Repeat blood gases will be obtained 2 hours after NIPPV was initiated. Aly Morales MD
[2017-09-21] MEDS: D5 1/2 NS w/ 20 mEq/L KCl 1,000 ML IV SCH (19:41)
[2017-09-21] MEDS: cefTRIAXone 1 GM in Sodium Chloride 0.9% 50 ML IV SCH (19:42)
[2017-09-21] MEDS ORDERED: Levofloxacin/Dextrose 5%-Water 750 MG in Premix Bag 1 BAG IV SCH (20:00)
[2017-09-21] MEDS: atorvaSTATin 20 MG Tab PO SCH (20:29)
[2017-09-21] MEDS: Mirtazapine 15 MG Tab PO SCH (20:29)
[2017-09-21] MEDS: LORazepam 2 MG/ML SDV IVPUSH PRN (20:43)
[2017-09-22] MEDS: methylPREDNISolone Sodium Succinate 125 MG/2 ML SDV IVPUSH SCH ×3 (01:16→17:38)
[2017-09-22] MEDS: Morphine 10 MG/0.5 ML Oral Syringe PO PRN ×3 (05:03→17:35)
[2017-09-22] MEDS: Albuterol/Ipratropium 3.0-0.5 MG/3 ML Neb Soln NEB SCH ×4 (07:09→21:07)
[2017-09-22] MEDS: Tiotropium Inhaler 18 MCG Inhalation Powder Cap Kit of 5 INH SCH (07:09)
[2017-09-22] MEDS: Formoterol/Mometasone 200-5 MCG 8.8 GM Inhaler IH SCH ×2 (07:10→21:08)
[2017-09-22] MEDS: D5 1/2 NS w/ 20 mEq/L KCl 1,000 ML IV SCH (07:54)
[2017-09-22] MEDS: Metoprolol Tartrate 25 MG Tab PO SCH ×2 (08:14→21:08)
[2017-09-22] MEDS: Clopidogrel 75 MG Tab PO SCH (08:14)
[2017-09-22] MEDS: Aspirin 81 MG Tab.EC PO SCH (08:15)
[2017-09-22] MEDS: LORazepam 0.5 MG Tab PO PRN ×3 (08:18→17:35)
--- NOTE | 2017-09-22 09:55 | PCM.PN ---
- General Info Date of Service: 09/22/17 Subjective Update: This patient is a 57-year-old woman who was admitted with COPD exacerbation. Yesterday developed increased lethargy and was found to have worsening CO2 retention and associated respiratory acidosis. She was transferred to the intensive care unit and placed on noninvasive positive pressure ventilation overnight. It appears that she does have at least some element of chronic CO2 retention and hypoxia. Hypercapnia has improved with use of the BiPAP and pH has normalized. By description she is more alert and interactive this morning she is been and reports that she feels that her breathing has improved over the past 2 days. Functional Status: Reports: Tolerating Diet, Urinating - Review of Systems General: Reports: Weakness. Denies: Fever, Chills Pulmonary: Reports: Shortness of Breath, Cough, Wheezing. Denies: Pleuritic Chest Pain, Sputum, Hemoptysis Cardiovascular: Reports: Dyspnea on Exertion. Denies: Chest Pain, Palpitations , Orthopnea, PND, Edema Gastrointestinal: Reports: No Symptoms - Patient Data Vitals - Most Recent: Last Vital Signs Temp 96.8 F 09/22/17 07:55 Pulse 95 09/22/17 08:14 Resp 20 09/22/17 07:55 BP 116/80 09/22/17 08:14 Pulse Ox 95 09/22/17 07:55 Weight - Most Recent: 93 lb I&O - Last 24 Hours: Intake & Output 09/21/17 09/22/17 09/22/17 22:59 06:59 14:59 Intake Total 480 900 Output Total 250 300 500 Balance 230 600 -500 Lab Results Last 24 Hours: Laboratory Results - last 24 hr 09/21/17 09/21/17 09/22/17 Range/Units 18:37 21:30 05:00 WBC 5.5 (4.5-11.0) K/uL RBC 4.49 (3.30-5.50) M/uL Hgb 13.2 (12.0-15.0) g/dL Hct 43.4 (36.0-48.0) % MCV 97 (80-98) fL MCH 29 (27-31) pg MCHC 30 L (32-36) % Plt Count 160 (150-400) K/uL Puncture Site Rt.radial Rt.radial ABG pH 7.241 L 7.271 L (7.350-7.450) ABG pCO2 95.8 H* 85.1 H* (35.0-42.0) mmHg ABG pO2 84.0 62.9 L (75.0-100.0) mmHg ABG HCO3 39.7 H 37.9 H (22.0-26.0) mmol/L ABG Total CO2 36.3 H 34.6 H (21.0-25.0) mmol/L ABG O2 Saturation 95.3 89.9 L (95.0-98.0) % ABG O2 Content 19.0 17.2 (15.0-23.0) %vol ABG Base Excess 8.2 7.8 mm/L ABG Hemoglobin 14.3 13.9 (12.0-16.0) g/dL ABG Oxyhemoglobin 94.1 88.3 % ABG Carboxyhemoglobin 0.7 1.0 (0.0-1.6) % ABG Methemoglobin 0.6 0.8 % Armen Test Passed Passed O2 Delivery Device Hi flow nasal cannu Bipap Oxygen Flow Rate 2 L 09/22/17 Range/Units 05:00 WBC (4.5-11.0) K/uL RBC (3.30-5.50) M/uL Hgb (12.0-15.0) g/dL Hct (36.0-48.0) % MCV (80-98) fL MCH (27-31) pg MCHC (32-36) % Plt Count (150-400) K/uL Puncture Site Rt radial ABG pH 7.394 (7.350-7.450) ABG pCO2 61.9 H (35.0-42.0) mmHg ABG pO2 75.0 (75.0-100.0) mmHg ABG HCO3 37.0 H (22.0-26.0) mmol/L ABG Total CO2 17.2 L (21.0-25.0) mmol/L ABG O2 Saturation 96.1 (95.0-98.0) % ABG O2 Content (15.0-23.0) %vol ABG Base Excess 10.1 mm/L ABG Hemoglobin 13.2 (12.0-16.0) g/dL ABG Oxyhemoglobin 93.4 % ABG Carboxyhemoglobin 2.2 H (0.0-1.6) % ABG Methemoglobin 0.6 % Armen Test Passed O2 Delivery Device Bipap Oxygen Flow Rate L Med Orders - Current: Current Medications Acetaminophen (Tylenol) 650 mg PO Q4H PRN PRN Reason: Pain (Mild 1-3)/fever Albuterol (Proventil Neb Soln) 2.5 mg NEB Q4H PRN PRN Reason: Shortness Of Breath/wheezing Last Admin: 09/21/17 01:50 Dose: 2.5 mg Albuterol/Ipratropium (Duoneb 3.0-0.5 Mg/3 Ml) 3 ml NEB QIDRT [facility] Last Admin: 09/22/17 07:09 Dose: 3 ml Aspirin (Halfprin) 81 mg PO DAILY [facility] Last Admin: 09/22/17 08:15 Dose: 81 mg Atorvastatin Calcium (Lipitor) 80 mg PO BEDTIME [facility] [place] Last Admin: 09/21/17 20:29 Dose: 80 mg Benzonatate (Tessalon Perles) 100 mg PO TID PRN PRN Reason: Cough Clopidogrel Bisulfate (Plavix) 75 mg PO DAILY [facility] Last Admin: 09/22/17 08:14 Dose: 75 mg Guaifenesin/Codeine Phosphate (Robitussin Ac) 10 ml PO Q4H PRN PRN Reason: Cough Ceftriaxone Sodium 1 gm/ (Sodium Chloride) 50 mls @ 100 mls/hr IV Q24H [facility] Last Admin: 09/21/17 19:42 Dose: 100 mls/hr Levofloxacin/Dextrose 750 mg/ (Premix) 150 mls @ 100 mls/hr IV Q24H [facility] Ibuprofen (Motrin) 600 mg PO Q6H PRN PRN Reason: Pain/Fever Lorazepam (Ativan) 0.5 mg PO Q4H PRN PRN Reason: Anxiety Last Admin: 09/22/17 08:18 Dose: 0.5 mg Lorazepam (Ativan) 0.5 - 1 mg IVPUSH Q4H PRN PRN Reason: Anxiety Last Admin: 09/21/17 20:43 Dose: 1 mg Methylprednisolone Sodium Succinate (Solu-Medrol) 62.5 mg IVPUSH Q8H [facility] Last Admin: 09/22/17 01:16 Dose: 62.5 mg Metoprolol Tartrate (Lopressor) 12.5 mg PO BID [facility] Last Admin: 09/22/17 08:14 Dose: 12.5 mg Mirtazapine (Remeron) 30 mg PO BEDTIME [facility] Last Admin: 09/21/17 20:29 Dose: 30 mg Mometasone Furoate/Formoterol Fumar (Dulera 200-5 Mcg) 2 puff IH BIDRT [facility] Last Admin: 09/22/17 07:10 Dose: 2 inhalation Morphine Sulfate (Morphine 10 Mg/0.5 Ml Oral Syringe) 5 mg PO Q4H PRN PRN Reason: Dyspnea Last Admin: 09/22/17 05:03 Dose: 5 mg Ondansetron HCl (Zofran Odt) 4 mg PO Q6H PRN PRN Reason: Nausea able to take PO Polyethylene Glycol (Miralax) 17 gm PO DAILY PRN PRN Reason: Constipation Senna/Docusate Sodium (Senna Plus) 1 tab PO BID PRN PRN Reason: Constipation Sodium Chloride (Saline Flush) 10 ml FLUSH ASDIRECTED PRN PRN Reason: Keep Vein Open Last Admin: 09/20/17 17:36 Dose: 10 ml Tiotropium [place] (Spiriva Handihaler) 18 mcg INH DAILY@0700 [facility] Last Admin: 09/22/17 07:09 Dose: 1 inhalation Tizanidine HCl (Zanaflex) 4 mg PO Q8H PRN PRN Reason: muscle spasms Discontinued Medications Albuterol (Proventil Neb Soln) 2.5 mg NEB ONETIME ONE Stop: 09/20/17 17:15 Last Admin: 09/20/17 17:36 Dose: 2.5 mg Albuterol/Ipratropium (Duoneb 3.0-0.5 Mg/3 Ml) 3 ml NEB QID [facility] Last Admin: 09/21/17 06:10 Dose: 3 ml Atorvastatin Calcium (Lipitor) Confirm Administered Dose 20 mg .ROUTE .STK-MED ONE Stop: 09/20/17 21:24 Last Admin: 09/20/17 21:33 Dose: Not Given Doxycycline Hyclate (Vibramycin) 100 mg PO BID [facility] Last Admin: 09/21/17 09:20 Dose: 100 mg Sodium Chloride (Normal Saline) 1,000 mls @ 250 mls/hr IV ASDIRECTED [facility] Sodium Chloride (Normal Saline) 1,000 mls @ 100 mls/hr IV ASDIRECTED [facility] Last Admin: 09/21/17 08:01 Dose: 100 mls/hr Levofloxacin/Dextrose 750 mg/ (Premix) 150 mls @ 100 mls/hr IV Q48H [facility] Last Admin: 09/21/17 21:09 Dose: 100 mls/hr Potassium Chloride/Dextrose/Sod Cl (D5 1/2 Ns W/ 20 Meq/L Kcl) 1,000 mls @ 100 mls/hr IV ASDIRECTED [facility] Last Admin: 09/22/17 07:54 Dose: 100 mls/hr Methylprednisolone Sodium Succinate (Solu-Medrol) 125 mg IVPUSH ONETIME ONE Stop: 09/20/17 17:17 Last Admin: 09/20/17 17:36 Dose: 125 mg Mometasone Furoate/Formoterol Fumar (Dulera 200-5 Mcg) 2 puff IH BID [facility] Last Admin: 09/20/17 20:54 Dose: 2 puff - Exam Quality Assessment: Supplemental Oxygen, DVT Prophylaxis General: Alert, Oriented, Cooperative, Mild Distress Lungs: Decreased Breath Sounds, Wheezing. No: Rales, Rhonchi Cardiovascular: Regular Rate, Regular Rhythm, No Murmurs GI/Abdominal Exam: Soft, Non-Tender, No Organomegaly, No Distention Extremities: Non-Tender, No Pedal Edema Skin: Warm, Dry, Intact - Problem List Review Problem List Initiated/Reviewed/Updated: Yes - My Orders Last 24 Hours: My Active Orders 09/22/17 09:49 Convert IV to Saline Lock [OM.PC] Routine 09/23/17 05:00 BLOOD GAS ARTERIAL [BG] Timed - Plan Plan:: ASSESSMENT AND PLAN - Acute bronchitis with COPD exacerbation - complicated by acute respiratory failure with hypoxia and hypercapnia. Developed worsening hypercapnia yesterday requiring transfer to the intensive care unit and use of noninvasive positive pressure ventilation. Since then she has stabilized and appears to be close to baseline. -Continue ceftriaxone and levofloxacin -Continue intermittent use of noninvasive positive pressure ventilation -Goal oxygen saturation of 88-92% -IV steroids -Acapella -Scheduled and as needed nebulizers -Supplement oxygen -Continue home medications Coronary artery disease - history of myocardial infarction. No active symptoms. -Continue home medical management Maintenance issues - - DVT prophylaxis - mechanical - GI prophylaxis - not indicated - Nutrition - regular diet Disposition - anticipate discharge to home after the hospital stay Primary care physician - Dr Palacios
--- NOTE | 2017-09-22 10:05 | CR ---
Chest 2V HISTORY: sob, cough COMPARISON: 09/12/2016 FINDINGS: Lungs are prominently hyperinflated with flattening of the diaphragm consistent with COPD. Cardiomedi astinal silhouette is within normal limits. Atherosclerotic aorta is noted. No vascular redistributio n or pleural fluid can be seen. Bony structures and soft tissues are unremarkable. IMPRESSION: Prominent COPD similar to exam of 09/12/2016. No other acute chest abnormality or significant interval change is identified.
[2017-09-22] MEDS ORDERED: Calcium Carbonate 500 MG Tab.Chew PO PRN (18:09)
[2017-09-22] MEDS: cefTRIAXone 1 GM in Sodium Chloride 0.9% 50 ML IV SCH (19:03)
[2017-09-22] MEDS: Levofloxacin/Dextrose 5%-Water 750 MG in Premix Bag 1 BAG IV SCH (20:22)
[2017-09-22] MEDS: Mirtazapine 15 MG Tab PO SCH (21:08)
[2017-09-22] MEDS: atorvaSTATin 20 MG Tab PO SCH (21:08)
[2017-09-22] MEDS: LORazepam 2 MG/ML SDV IVPUSH PRN (21:09)
[2017-09-23] MEDS: methylPREDNISolone Sodium Succinate 125 MG/2 ML SDV IVPUSH SCH ×3 (01:33→17:45)
[2017-09-23] MEDS: Tiotropium Inhaler 18 MCG Inhalation Powder Cap Kit of 5 INH SCH (07:21)
[2017-09-23] MEDS: Albuterol/Ipratropium 3.0-0.5 MG/3 ML Neb Soln NEB SCH ×5 (07:21→21:07)
[2017-09-23] MEDS: Formoterol/Mometasone 200-5 MCG 8.8 GM Inhaler IH SCH ×2 (07:21→21:06)
[2017-09-23] MEDS: Clopidogrel 75 MG Tab PO SCH (08:18)
[2017-09-23] MEDS: Aspirin 81 MG Tab.EC PO SCH (08:18)
[2017-09-23] MEDS: Metoprolol Tartrate 25 MG Tab PO SCH ×2 (08:18→21:08)
--- NOTE | 2017-09-23 09:53 | PCM.PN ---
- General Info Date of Service: 09/23/17 Subjective Update: This patient has been stable since yesterday and has tolerated nasal cannula now this morning for approximately 4 hours. Continues to experience significant amount of CO2 retention but I suspect that this is at least to some degree chronic. Oral intake seems to be improving and she denies significant shortness of breath at rest. - Review of Systems General: Reports: Weakness. Denies: Fever, Chills Pulmonary: Reports: Shortness of Breath, Cough, Wheezing. Denies: Pleuritic Chest Pain, Sputum, Hemoptysis Cardiovascular: Reports: Dyspnea on Exertion. Denies: Chest Pain, Palpitations , Orthopnea, PND, Edema, Lightheadedness Gastrointestinal: Reports: No Symptoms - Patient Data Vitals - Most Recent: Last Vital Signs Temp 97.4 F 09/23/17 08:00 Pulse 96 09/23/17 08:18 Resp 21 H 09/23/17 08:00 BP 186/90 H 09/23/17 08:18 Pulse Ox 91 L 09/23/17 08:00 Weight - Most Recent: 92 lb 15.997 oz I&O - Last 24 Hours: Intake & Output 09/22/17 09/23/17 09/23/17 22:59 06:59 14:59 Intake Total 270 500 Output Total 500 1000 675 Balance -230 -500 -675 Lab Results Last 24 Hours: Laboratory Results - last 24 hr 09/23/17 Range/Units 05:00 Puncture Site Rt radial ABG pH 7.343 L (7.350-7.450) ABG pCO2 77.5 H* (35.0-42.0) mmHg ABG pO2 61.2 L (75.0-100.0) mmHg ABG HCO3 41.0 H (22.0-26.0) mmol/L ABG Total CO2 37.0 H (21.0-25.0) mmol/L ABG O2 Saturation 89.6 L (95.0-98.0) % ABG O2 Content 16.6 (15.0-23.0) %vol ABG Base Excess 12.1 mm/L ABG Hemoglobin 13.3 (12.0-16.0) g/dL ABG Oxyhemoglobin 88.3 % ABG Carboxyhemoglobin 1.0 (0.0-1.6) % ABG Methemoglobin 0.5 % Armen Test Passed O2 Delivery Device Bipap Oxygen Flow Rate L Med Orders - Current: Current Medications Acetaminophen (Tylenol) 650 mg PO Q4H PRN PRN Reason: Pain (Mild 1-3)/fever Albuterol (Proventil Neb Soln) 2.5 mg NEB Q4H PRN PRN Reason: Shortness Of Breath/wheezing Last Admin: 09/21/17 01:50 Dose: 2.5 mg Albuterol/Ipratropium (Duoneb 3.0-0.5 Mg/3 Ml) 3 ml NEB QIDRT [facility] Last Admin: 09/23/17 07:21 Dose: 3 ml Aspirin (Halfprin) 81 mg PO DAILY [facility] Last Admin: 09/23/17 08:18 Dose: 81 mg Atorvastatin Calcium (Lipitor) 80 mg PO BEDTIME [facility] Last Admin: 09/22/17 21:08 Dose: 80 mg Benzonatate (Tessalon Perles) 100 mg PO TID PRN PRN Reason: Cough Calcium Carbonate/Glycine (Tums) 500 mg PO Q2H PRN PRN Reason: Indigestion Clopidogrel Bisulfate (Plavix) 75 mg PO DAILY [facility] Last Admin: 09/23/17 08:18 Dose: 75 mg Guaifenesin/Codeine Phosphate (Robitussin Ac) 10 ml PO Q4H PRN PRN Reason: Cough Ceftriaxone Sodium 1 gm/ (Sodium Chloride) 50 mls @ 100 mls/hr IV Q24H [facility] Last Admin: 09/22/17 19:03 Dose: 100 mls/hr Levofloxacin/Dextrose 750 mg/ (Premix) 150 mls @ 100 mls/hr IV Q24H [facility] Last Admin: 09/22/17 20:22 Dose: 100 mls/hr Ibuprofen (Motrin) 600 mg PO Q6H PRN PRN Reason: Pain/Fever Last Admin: 09/22/17 13:13 Dose: 600 mg Lorazepam (Ativan) 0.5 mg PO Q4H PRN PRN Reason: Anxiety Last Admin: 09/22/17 17:35 Dose: 0.5 mg Lorazepam (Ativan) 0.5 - 1 mg IVPUSH Q4H PRN PRN Reason: Anxiety Last Admin: 09/22/17 21:09 Dose: 1 mg Methylprednisolone Sodium Succinate (Solu-Medrol) 62.5 mg IVPUSH Q8H [facility] Last Admin: 09/23/17 01:33 Dose: 62.5 mg Metoprolol Tartrate (Lopressor) 12.5 mg PO BID [facility] Last Admin: 09/23/17 08:18 Dose: 12.5 mg Mirtazapine (Remeron) 30 mg PO BEDTIME [facility] Last Admin: 09/22/17 21:08 Dose: 30 mg Mometasone Furoate/Formoterol Fumar (Dulera 200-5 Mcg) 2 puff IH BIDRT [facility] Last Admin: 09/23/17 07:21 Dose: 2 inhalation Morphine Sulfate (Morphine 10 Mg/0.5 Ml Oral Syringe) 5 mg PO Q4H PRN PRN Reason: Dyspnea Last Admin: 09/22/17 17:35 Dose: 5 mg Ondansetron HCl (Zofran Odt) 4 mg PO Q6H PRN PRN Reason: Nausea able to take PO Polyethylene Glycol (Miralax) 17 gm PO DAILY PRN PRN Reason: Constipation Senna/Docusate Sodium (Senna Plus) 1 tab PO BID PRN PRN Reason: Constipation Sodium Chloride (Saline Flush) 10 ml FLUSH ASDIRECTED PRN PRN Reason: Keep Vein Open Last Admin: 09/20/17 17:36 Dose: 10 ml Tiotropium [place] (Spiriva Handihaler) 18 mcg INH DAILY@0700 [facility] Last Admin: 09/23/17 07:21 Dose: 1 inhalation Tizanidine HCl (Zanaflex) 4 mg PO Q8H PRN PRN Reason: muscle spasms Discontinued Medications Albuterol (Proventil Neb Soln) 2.5 mg NEB ONETIME ONE Stop: 09/20/17 17:15 Last Admin: 09/20/17 17:36 Dose: 2.5 mg Albuterol/Ipratropium (Duoneb 3.0-0.5 Mg/3 Ml) 3 ml NEB QID [facility] Last Admin: 09/21/17 06:10 Dose: 3 ml Atorvastatin Calcium (Lipitor) Confirm Administered Dose 20 mg .ROUTE .STK-MED ONE Stop: 09/20/17 21:24 Last Admin: 09/20/17 21:33 Dose: Not Given Doxycycline Hyclate (Vibramycin) 100 mg PO BID [facility] Last Admin: 09/21/17 09:20 Dose: 100 mg Sodium Chloride (Normal Saline) 1,000 mls @ 250 mls/hr IV ASDIRECTED [facility] Sodium Chloride (Normal Saline) 1,000 mls @ 100 mls/hr IV ASDIRECTED [facility] Last Admin: 09/21/17 08:01 Dose: 100 mls/hr Levofloxacin/Dextrose 750 mg/ (Premix) 150 mls @ 100 mls/hr IV Q48H [facility] Last Admin: 09/21/17 21:09 Dose: 100 mls/hr Potassium Chloride/Dextrose/Sod Cl (D5 1/2 Ns W/ 20 Meq/L Kcl) 1,000 mls @ 100 mls/hr IV ASDIRECTED [facility] Last Admin: 09/22/17 07:54 Dose: 100 mls/hr Methylprednisolone Sodium Succinate (Solu-Medrol) 125 mg IVPUSH ONETIME ONE Stop: 09/20/17 17:17 Last Admin: 09/20/17 17:36 Dose: 125 mg Mometasone Furoate/Formoterol Fumar (Dulera 200-5 Mcg) 2 puff IH BID [facility] Last Admin: 09/20/17 20:54 Dose: 2 puff - Exam Quality Assessment: Supplemental Oxygen, DVT Prophylaxis General: Alert, Oriented, Cooperative, Mild Distress Lungs: Decreased Breath Sounds, Wheezing. No: Rales, Rhonchi, Rub Cardiovascular: Regular Rate, Regular Rhythm, No Murmurs GI/Abdominal Exam: Soft, Non-Tender, No Organomegaly, No Distention Extremities: Non-Tender, No Pedal Edema Skin: Warm, Dry, Intact - Problem List Review Problem List Initiated/Reviewed/Updated: Yes - My Orders Last 24 Hours: My Active Orders 09/22/17 09:49 Convert IV to Saline Lock [OM.PC] Routine 09/22/17 18:09 Calcium Carbonate [Tums] 500 mg PO Q2H PRN 09/24/17 05:00 BASIC METABOLIC PANEL,BMP [CHEM] Timed BLOOD GAS ARTERIAL [BG] Timed - Plan Plan:: ASSESSMENT AND PLAN - Acute bronchitis with COPD exacerbation - complicated by acute respiratory failure with hypoxia and hypercapnia. Stable and modestly improved over the past 24 hours, tolerating being off of BiPAP this morning. -Continue ceftriaxone and levofloxacin -Continue intermittent use of noninvasive positive pressure ventilation -Goal oxygen saturation of 88-92% -IV steroids -Acapella -Scheduled and as needed nebulizers -Supplement oxygen -Continue home medications Coronary artery disease - history of myocardial infarction. No active symptoms. -Continue home medical management Maintenance issues - - DVT prophylaxis - mechanical - GI prophylaxis - not indicated - Nutrition - regular diet Disposition - anticipate discharge to home after the hospital stay Primary care physician - Dr Palacios
[2017-09-23] MEDS: LORazepam 0.5 MG Tab PO PRN ×2 (14:34→20:01)
[2017-09-23] MEDS: Polyethylene Glycol 3350 Powder 17 GM Packet PO PRN (14:45)
[2017-09-23] MEDS: Sodium Chloride 0.9% 10 ML Syringe FLUSH PRN (17:45)
[2017-09-23] MEDS: Morphine 10 MG/0.5 ML Oral Syringe PO PRN ×2 (18:02→21:07)
[2017-09-23] MEDS: cefTRIAXone 1 GM in Sodium Chloride 0.9% 50 ML IV SCH (18:35)
[2017-09-23] MEDS: Levofloxacin/Dextrose 5%-Water 750 MG in Premix Bag 1 BAG IV SCH (20:01)
[2017-09-23] MEDS: atorvaSTATin 20 MG Tab PO SCH (21:08)
[2017-09-23] MEDS: Mirtazapine 15 MG Tab PO SCH (21:08)
[2017-09-24] MEDS: methylPREDNISolone Sodium Succinate 125 MG/2 ML SDV IVPUSH SCH ×3 (01:28→17:05)
[2017-09-24] MEDS: LORazepam 0.5 MG Tab PO PRN ×2 (02:22→20:08)
[2017-09-24] MEDS: Morphine 10 MG/0.5 ML Oral Syringe PO PRN ×2 (02:22→22:43)
[2017-09-24] MEDS: Tiotropium Inhaler 18 MCG Inhalation Powder Cap Kit of 5 INH SCH (07:04)
[2017-09-24] MEDS: Albuterol/Ipratropium 3.0-0.5 MG/3 ML Neb Soln NEB SCH ×4 (07:04→21:14)
[2017-09-24] MEDS: Formoterol/Mometasone 200-5 MCG 8.8 GM Inhaler IH SCH ×2 (07:04→21:14)
[2017-09-24] MEDS: Aspirin 81 MG Tab.EC PO SCH (08:14)
[2017-09-24] MEDS: Metoprolol Tartrate 25 MG Tab PO SCH ×2 (08:15→21:14)
[2017-09-24] MEDS: Clopidogrel 75 MG Tab PO SCH (08:15)
--- NOTE | 2017-09-24 09:39 | PCM.PN ---
- General Info Date of Service: 09/24/17 Subjective Update: This patient has been stable over the past 24 hours, continues to intermittently require use of the noninvasive positive pressure ventilation. Continues to experience significant hypercapnia, I suspect that much of this is chronic, related to her long-standing COPD. Vital signs have otherwise been stable and she has remained afebrile. - Review of Systems General: Reports: Weakness. Denies: Fever, Chills Pulmonary: Reports: Shortness of Breath, Cough, Wheezing. Denies: Pleuritic Chest Pain, Sputum, Hemoptysis Cardiovascular: Reports: Dyspnea on Exertion. Denies: Chest Pain, Palpitations , Orthopnea, PND, Edema Gastrointestinal: Reports: No Symptoms - Patient Data Vitals - Most Recent: Last Vital Signs Temp 98.5 F 09/24/17 04:00 Pulse 76 09/24/17 08:15 Resp 15 09/24/17 07:26 BP 145/62 H 09/24/17 08:15 Pulse Ox 93 L 09/24/17 07:26 Weight - Most Recent: 92 lb 15.997 oz I&O - Last 24 Hours: Intake & Output 09/23/17 09/24/17 09/24/17 22:59 06:59 14:59 Intake Total 400 240 Output Total 800 400 400 Balance -400 -160 -400 Lab Results Last 24 Hours: Laboratory Results - last 24 hr 09/24/17 09/24/17 Range/Units 05:00 05:35 Puncture Site Lt radial ABG pH 7.356 (7.350-7.450) ABG pCO2 74.2 H* (35.0-42.0) mmHg ABG pO2 86.2 (75.0-100.0) mmHg ABG HCO3 40.4 H (22.0-26.0) mmol/L ABG Total CO2 36.4 H (21.0-25.0) mmol/L ABG O2 Saturation 96.4 (95.0-98.0) % ABG O2 Content 17.6 (15.0-23.0) %vol ABG Base Excess 12.0 mm/L ABG Hemoglobin 13.2 (12.0-16.0) g/dL ABG Oxyhemoglobin 94.6 % ABG Carboxyhemoglobin 1.4 (0.0-1.6) % ABG Methemoglobin 0.5 % Armen Test Passed O2 Delivery Device Bipap Oxygen Flow Rate L Sodium 142 (140-148) mmol/L Potassium 4.5 (3.6-5.2) mmol/L Chloride 100 (100-108) mmol/L Carbon Dioxide 40 H (21-32) mmol/L Anion Gap 6.5 (5.0-14.0) mmol/L BUN 18 D (7-18) mg/dL Creatinine 0.5 L (0.6-1.0) mg/dL Est Cr Clr Drug Dosing 80.68 mL/min Estimated GFR (MDRD) > 60 (>60) Glucose 140 H (74-106) mg/dL Calcium 8.7 (8.5-10.1) mg/dL Med Orders - Current: Current Medications Acetaminophen (Tylenol) 650 mg PO Q4H PRN PRN Reason: Pain (Mild 1-3)/fever Albuterol (Proventil Neb Soln) 2.5 mg NEB Q4H PRN PRN Reason: Shortness Of Breath/wheezing Last Admin: 09/21/17 01:50 Dose: 2.5 mg Albuterol/Ipratropium (Duoneb 3.0-0.5 Mg/3 Ml) 3 ml NEB QIDRT [facility] Last Admin: 09/24/17 07:04 Dose: 3 ml Aspirin (Halfprin) 81 mg PO DAILY [facility] Last Admin: 09/24/17 08:14 Dose: 81 mg Atorvastatin Calcium (Lipitor) 80 mg PO BEDTIME [facility] Last Admin: 09/23/17 21:08 Dose: 80 mg Benzonatate (Tessalon Perles) 100 mg PO TID PRN PRN Reason: Cough Calcium Carbonate/Glycine (Tums) 500 mg PO Q2H PRN PRN Reason: Indigestion Clopidogrel Bisulfate (Plavix) 75 mg PO DAILY [facility] Last Admin: 09/24/17 08:15 Dose: 75 mg Guaifenesin/Codeine Phosphate (Robitussin Ac) 10 ml PO Q4H PRN PRN Reason: Cough Ceftriaxone Sodium 1 gm/ (Sodium Chloride) 50 mls @ 100 mls/hr IV Q24H [facility] Last Admin: 09/23/17 18:35 Dose: 100 mls/hr Levofloxacin/Dextrose 750 mg/ (Premix) 150 mls @ 100 mls/hr IV Q24H [facility] Last Admin: 09/23/17 20:01 Dose: 100 mls/hr Ibuprofen (Motrin) 600 mg PO Q6H PRN PRN Reason: Pain/Fever Last Admin: 09/22/17 13:13 Dose: 600 mg Lorazepam (Ativan) 0.5 mg PO Q4H PRN PRN Reason: Anxiety Last Admin: 09/24/17 02:22 Dose: 0.5 mg Lorazepam (Ativan) 0.5 - 1 mg IVPUSH Q4H PRN PRN Reason: Anxiety Last Admin: 09/22/17 21:09 Dose: 1 mg Methylprednisolone Sodium Succinate (Solu-Medrol) 62.5 mg IVPUSH Q8H [facility] Last Admin: 09/24/17 09:31 Dose: 62.5 mg Metoprolol Tartrate (Lopressor) 12.5 mg PO BID [facility] Last Admin: 09/24/17 08:15 Dose: 12.5 mg Mirtazapine (Remeron) 30 mg PO BEDTIME [facility] Last Admin: 09/23/17 21:08 Dose: 30 mg Mometasone Furoate/Formoterol Fumar (Dulera 200-5 Mcg) 2 puff IH BIDRT [facility] Last Admin: 09/24/17 07:04 Dose: 2 inhalation Morphine Sulfate (Morphine 10 Mg/0.5 Ml Oral Syringe) 5 mg PO Q4H PRN PRN Reason: Dyspnea Last Admin: 09/24/17 02:22 Dose: 5 mg Ondansetron HCl (Zofran Odt) 4 mg PO Q6H PRN PRN Reason: Nausea able to take PO Polyethylene Glycol (Miralax) 17 gm PO DAILY PRN PRN Reason: Constipation Last Admin: 09/23/17 14:45 Dose: 17 gm Senna/Docusate Sodium (Senna Plus) 1 tab PO BID PRN PRN Reason: Constipation Last Admin: 09/23/17 14:45 Dose: 1 tab Sodium Chloride (Saline Flush) 10 ml FLUSH ASDIRECTED PRN PRN Reason: Keep Vein Open Last Admin: 09/23/17 17:45 Dose: 10 ml Tiotropium [place] (Spiriva Handihaler) 18 mcg INH DAILY@0700 [facility] Last Admin: 09/24/17 07:04 Dose: 1 inhalation Tizanidine HCl (Zanaflex) 4 mg PO Q8H PRN PRN Reason: muscle spasms Discontinued Medications Albuterol (Proventil Neb Soln) 2.5 mg NEB ONETIME ONE Stop: 09/20/17 17:15 Last Admin: 09/20/17 17:36 Dose: 2.5 mg Albuterol/Ipratropium (Duoneb 3.0-0.5 Mg/3 Ml) 3 ml NEB QID [facility] Last Admin: 09/21/17 06:10 Dose: 3 ml Atorvastatin Calcium (Lipitor) Confirm Administered Dose 20 mg .ROUTE .STK-MED ONE Stop: 09/20/17 21:24 Last Admin: 09/20/17 21:33 Dose: Not Given Doxycycline Hyclate (Vibramycin) 100 mg PO BID [facility] Last Admin: 09/21/17 09:20 Dose: 100 mg Sodium Chloride (Normal Saline) 1,000 mls @ 250 mls/hr IV ASDIRECTED [facility] Sodium Chloride (Normal Saline) 1,000 mls @ 100 mls/hr IV ASDIRECTED [facility] Last Admin: 09/21/17 08:01 Dose: 100 mls/hr Levofloxacin/Dextrose 750 mg/ (Premix) 150 mls @ 100 mls/hr IV Q48H [facility] Last Admin: 09/21/17 21:09 Dose: 100 mls/hr Potassium Chloride/Dextrose/Sod Cl (D5 1/2 Ns W/ 20 Meq/L Kcl) 1,000 mls @ 100 mls/hr IV ASDIRECTED [facility] Last Admin: 09/22/17 07:54 Dose: 100 mls/hr Methylprednisolone Sodium Succinate (Solu-Medrol) 125 mg IVPUSH ONETIME ONE Stop: 09/20/17 17:17 Last Admin: 09/20/17 17:36 Dose: 125 mg Mometasone Furoate/Formoterol Fumar (Dulera 200-5 Mcg) 2 puff IH BID [facility] Last Admin: 09/20/17 20:54 Dose: 2 puff - Exam Quality Assessment: Supplemental Oxygen, DVT Prophylaxis General: Alert, Oriented, Cooperative, Mild Distress Lungs: Normal Respiratory Effort, Decreased Breath Sounds, Wheezing. No: Rales , Rhonchi Cardiovascular: Regular Rate, Regular Rhythm, No Murmurs GI/Abdominal Exam: Soft, Non-Tender, No Organomegaly, No Distention Extremities: Non-Tender, No Pedal Edema Skin: Warm, Dry, Intact - Problem List Review Problem List Initiated/Reviewed/Updated: Yes - My Orders Last 24 Hours: My Active Orders 09/25/17 05:00 BASIC METABOLIC PANEL,BMP [CHEM] Timed BLOOD GAS ARTERIAL [BG] Timed - Plan Plan:: ASSESSMENT AND PLAN - Acute bronchitis with COPD exacerbation - complicated by acute respiratory failure with hypoxia and hypercapnia. Slow improvement on a day-to-day basis, continues to experience significant hypercapnia much of which is chronic. -Continue ceftriaxone and levofloxacin -Continue intermittent use of noninvasive positive pressure ventilation -Goal oxygen saturation of 88-92% -IV steroids -Acapella -Scheduled and as needed nebulizers -Supplement oxygen -Continue home medications Coronary artery disease - history of myocardial infarction. No active symptoms. -Continue home medical management Maintenance issues - - DVT prophylaxis - mechanical - GI prophylaxis - not indicated - Nutrition - regular diet Disposition - anticipate discharge to home after the hospital stay Primary care physician - Dr Palacios
[2017-09-24] MEDS: cefTRIAXone 1 GM in Sodium Chloride 0.9% 50 ML IV SCH (18:03)
[2017-09-24] MEDS: Levofloxacin/Dextrose 5%-Water 750 MG in Premix Bag 1 BAG IV SCH (19:58)
[2017-09-24] MEDS: atorvaSTATin 20 MG Tab PO SCH (21:14)
[2017-09-24] MEDS: Mirtazapine 15 MG Tab PO SCH (21:15)
[2017-09-25] MEDS: methylPREDNISolone Sodium Succinate 125 MG/2 ML SDV IVPUSH SCH (02:04)
[2017-09-25] MEDS: Albuterol/Ipratropium 3.0-0.5 MG/3 ML Neb Soln NEB SCH ×4 (07:28→20:42)
[2017-09-25] MEDS: Tiotropium Inhaler 18 MCG Inhalation Powder Cap Kit of 5 INH SCH (07:28)
[2017-09-25] MEDS: Formoterol/Mometasone 200-5 MCG 8.8 GM Inhaler IH SCH ×2 (07:28→20:42)
--- NOTE | 2017-09-25 09:23 | PCM.PN ---
- General Info Date of Service: 09/25/17 Subjective Update: Emily continue just show slow improvement on a day-to-day basis, mainly only using the BiPAP at night while sleeping. Feels that she is less short of breath and is also noted significant improvement in her cough. Functional Status: Reports: Tolerating Diet, Urinating - Review of Systems General: Reports: Weakness. Denies: Fever, Chills Pulmonary: Reports: Shortness of Breath, Wheezing. Denies: Pleuritic Chest Pain , Cough, Sputum, Hemoptysis Cardiovascular: Reports: Dyspnea on Exertion. Denies: Chest Pain, Palpitations , Orthopnea, PND, Edema, Lightheadedness Gastrointestinal: Reports: No Symptoms - Patient Data Vitals - Most Recent: Last Vital Signs Temp 97.1 F 09/25/17 08:00 Pulse 79 09/25/17 08:00 Resp 20 09/25/17 08:00 BP 153/74 H 09/25/17 08:00 Pulse Ox 91 L 09/25/17 08:00 Weight - Most Recent: 94 lb 12.78 oz I&O - Last 24 Hours: Intake & Output 09/24/17 09/25/17 09/25/17 22:59 06:59 14:59 Intake Total 1370 440 Output Total 1750 350 Balance -380 90 Lab Results Last 24 Hours: Laboratory Results - last 24 hr 09/25/17 09/25/17 Range/Units 04:45 05:00 Puncture Site Lt radial ABG pH 7.398 (7.350-7.450) ABG pCO2 61.6 H (35.0-42.0) mmHg ABG pO2 81.0 (75.0-100.0) mmHg ABG HCO3 37.1 H (22.0-26.0) mmol/L ABG Total CO2 33.1 H (21.0-25.0) mmol/L ABG O2 Saturation 95.9 (95.0-98.0) % ABG O2 Content 17.4 (15.0-23.0) %vol ABG Base Excess 10.3 mm/L ABG Hemoglobin 13.1 (12.0-16.0) g/dL ABG Oxyhemoglobin 93.7 % ABG Carboxyhemoglobin 1.8 H (0.0-1.6) % ABG Methemoglobin 0.5 % Armen Test Passed O2 Delivery Device Bipap Oxygen Flow Rate L Sodium 142 (140-148) mmol/L Potassium 4.3 (3.6-5.2) mmol/L Chloride 102 (100-108) mmol/L Carbon Dioxide 40 H (21-32) mmol/L Anion Gap 4.3 L (5.0-14.0) mmol/L BUN 21 H (7-18) mg/dL Creatinine 0.6 (0.6-1.0) mg/dL Est Cr Clr Drug Dosing 68.53 mL/min Estimated GFR (MDRD) > 60 (>60) Glucose 163 H (74-106) mg/dL Calcium 8.5 (8.5-10.1) mg/dL Med Orders - Current: Current Medications Acetaminophen (Tylenol) 650 mg PO Q4H PRN PRN Reason: Pain (Mild 1-3)/fever Albuterol (Proventil Neb Soln) 2.5 mg NEB Q4H PRN PRN Reason: Shortness Of Breath/wheezing Last Admin: 09/21/17 01:50 Dose: 2.5 mg Albuterol/Ipratropium (Duoneb 3.0-0.5 Mg/3 Ml) 3 ml NEB QIDRT [facility] Last Admin: 09/25/17 07:28 Dose: 3 ml Aspirin (Halfprin) 81 mg PO DAILY [facility] Last Admin: 09/24/17 08:14 Dose: 81 mg Atorvastatin Calcium (Lipitor) 80 mg PO BEDTIME [facility] Last Admin: 09/24/17 21:14 Dose: 80 mg Benzonatate (Tessalon Perles) 100 mg PO TID PRN PRN Reason: Cough Calcium Carbonate/Glycine (Tums) 500 mg PO Q2H PRN PRN Reason: Indigestion Clopidogrel Bisulfate (Plavix) 75 mg PO DAILY [facility] Last Admin: 09/24/17 08:15 Dose: 75 mg Guaifenesin/Codeine Phosphate (Robitussin Ac) 10 ml PO Q4H PRN PRN Reason: Cough Levofloxacin/Dextrose 750 mg/ (Premix) 150 mls @ 100 mls/hr IV Q24H [facility] Last Admin: 09/24/17 19:58 Dose: 100 mls/hr Ibuprofen (Motrin) 600 mg PO Q6H PRN PRN Reason: Pain/Fever Last Admin: 09/22/17 13:13 Dose: 600 mg Lorazepam (Ativan) 0.5 mg PO Q4H PRN PRN Reason: Anxiety Last Admin: 09/24/17 20:08 Dose: 0.5 mg Lorazepam (Ativan) 0.5 - 1 mg IVPUSH Q4H PRN PRN Reason: Anxiety Last Admin: 09/22/17 21:09 Dose: 1 mg Methylprednisolone Sodium Succinate (Solu-Medrol) 40 mg IVPUSH Q8H [facility] Metoprolol Tartrate (Lopressor) 12.5 mg PO BID [facility] Last Admin: 09/24/17 21:14 Dose: 12.5 mg Mirtazapine (Remeron) 30 mg PO BEDTIME [facility] Last Admin: 09/24/17 21:15 Dose: 30 mg Mometasone Furoate/Formoterol Fumar (Dulera 200-5 Mcg) 2 puff IH BIDRT [facility] Last Admin: 09/25/17 07:28 Dose: 2 inhalation Morphine Sulfate (Morphine 10 Mg/0.5 Ml Oral Syringe) 5 mg PO Q4H PRN PRN Reason: Dyspnea Last Admin: 09/24/17 22:43 Dose: 5 mg Ondansetron HCl (Zofran Odt) 4 mg PO Q6H PRN PRN Reason: Nausea able to take PO Polyethylene Glycol (Miralax) 17 gm PO DAILY PRN PRN Reason: Constipation Last Admin: 09/23/17 14:45 Dose: 17 gm Senna/Docusate Sodium (Senna Plus) 1 tab PO BID PRN PRN Reason: Constipation Last Admin: 09/23/17 14:45 Dose: 1 tab Sodium Chloride (Saline Flush) 10 ml FLUSH ASDIRECTED PRN PRN Reason: Keep Vein Open Last Admin: 09/23/17 17:45 Dose: 10 ml Tiotropium [place] (Spiriva Handihaler) 18 mcg INH DAILY@0700 [facility] Last Admin: 09/25/17 07:28 Dose: 1 inhalation Tizanidine HCl (Zanaflex) 4 mg PO Q8H PRN PRN Reason: muscle spasms Discontinued Medications Albuterol (Proventil Neb Soln) 2.5 mg NEB ONETIME ONE Stop: 09/20/17 17:15 Last Admin: 09/20/17 17:36 Dose: 2.5 mg Albuterol/Ipratropium (Duoneb 3.0-0.5 Mg/3 Ml) 3 ml NEB QID [facility] Last Admin: 09/21/17 06:10 Dose: 3 ml Atorvastatin Calcium (Lipitor) Confirm Administered Dose 20 mg .ROUTE .STK-MED ONE Stop: 09/20/17 21:24 Last Admin: 09/20/17 21:33 Dose: Not Given Doxycycline Hyclate (Vibramycin) 100 mg PO BID [facility] Last Admin: 09/21/17 09:20 Dose: 100 mg Sodium Chloride (Normal Saline) 1,000 mls @ 250 mls/hr IV ASDIRECTED [facility] Sodium Chloride (Normal Saline) 1,000 mls @ 100 mls/hr IV ASDIRECTED [facility] Last Admin: 09/21/17 08:01 Dose: 100 mls/hr Ceftriaxone Sodium 1 gm/ (Sodium Chloride) 50 mls @ 100 mls/hr IV Q24H [facility] Last Admin: 09/24/17 18:03 Dose: 100 mls/hr Levofloxacin/Dextrose 750 mg/ (Premix) 150 mls @ 100 mls/hr IV Q48H [facility] Last Admin: 09/21/17 21:09 Dose: 100 mls/hr Potassium Chloride/Dextrose/Sod Cl (D5 1/2 Ns W/ 20 Meq/L Kcl) 1,000 mls @ 100 mls/hr IV ASDIRECTED [facility] Last Admin: 09/22/17 07:54 Dose: 100 mls/hr Methylprednisolone Sodium Succinate (Solu-Medrol) 125 mg IVPUSH ONETIME ONE Stop: 09/20/17 17:17 Last Admin: 09/20/17 17:36 Dose: 125 mg Methylprednisolone Sodium Succinate (Solu-Medrol) 62.5 mg IVPUSH Q8H [facility] Last Admin: 09/25/17 02:04 Dose: 62.5 mg Mometasone Furoate/Formoterol Fumar (Dulera 200-5 Mcg) 2 puff IH BID [facility] Last Admin: 09/20/17 20:54 Dose: 2 puff - Exam Quality Assessment: Supplemental Oxygen, DVT Prophylaxis General: Alert, Oriented, Cooperative, Mild Distress Lungs: Decreased Breath Sounds, Wheezing. No: Rales, Rhonchi, Rub Cardiovascular: Regular Rate, Regular Rhythm, No Murmurs GI/Abdominal Exam: Soft, Non-Tender, No Organomegaly, No Distention Extremities: Non-Tender, No Pedal Edema Skin: Warm, Dry, Intact - Problem List Review Problem List Initiated/Reviewed/Updated: Yes - My Orders Last 24 Hours: My Active Orders 09/25/17 09:18 methylPREDNISolone Sod Succ [Solu-MEDROL] 40 mg IVPUSH Q8H - Plan Plan:: ASSESSMENT AND PLAN - Acute bronchitis with COPD exacerbation - further improvement over last 24 hours noted with less shortness of breath and cough. Continues to use BiPAP mainly at night -Continue levofloxacin, discontinued ceftriaxone -Continue intermittent use of noninvasive positive pressure ventilation -Goal oxygen saturation of 88-92% -IV steroids, decrease Solu-Medrol to 40 mg IV every 12 hours -Acapella -Scheduled and as needed nebulizers -Supplement oxygen -Continue home medications Coronary artery disease - history of myocardial infarction. No active symptoms. -Continue home medical management Maintenance issues - - DVT prophylaxis - mechanical - GI prophylaxis - not indicated - Nutrition - regular diet Disposition - anticipate discharge to home after the hospital stay Primary care physician - Dr Palacios
[2017-09-25] MEDS: Metoprolol Tartrate 25 MG Tab PO SCH ×2 (09:47→20:42)
[2017-09-25] MEDS: Aspirin 81 MG Tab.EC PO SCH (09:48)
[2017-09-25] MEDS: methylPREDNISolone Sodium Succinate 40 MG/1 ML SDV IV SCH ×2 (09:48→18:03)
[2017-09-25] MEDS: Clopidogrel 75 MG Tab PO SCH (09:48)
[2017-09-25] MEDS: Morphine 10 MG/0.5 ML Oral Syringe PO PRN ×2 (14:12→22:34)
[2017-09-25] MEDS: Albuterol 0.083% 2.5 MG/3 ML Neb Soln NEB PRN (17:22)
[2017-09-25] MEDS: Levofloxacin/Dextrose 5%-Water 750 MG in Premix Bag 1 BAG IV SCH (20:37)
[2017-09-25] MEDS: atorvaSTATin 20 MG Tab PO SCH (20:43)
[2017-09-25] MEDS: Mirtazapine 15 MG Tab PO SCH (20:43)
[2017-09-25] MEDS: LORazepam 0.5 MG Tab PO PRN (22:34)
[2017-09-26] MEDS: methylPREDNISolone Sodium Succinate 40 MG/1 ML SDV IV SCH ×2 (01:31→09:28)
[2017-09-26] MEDS: Albuterol/Ipratropium 3.0-0.5 MG/3 ML Neb Soln NEB SCH ×4 (07:09→20:00)
[2017-09-26] MEDS: Tiotropium Inhaler 18 MCG Inhalation Powder Cap Kit of 5 INH SCH (07:09)
[2017-09-26] MEDS: Formoterol/Mometasone 200-5 MCG 8.8 GM Inhaler IH SCH ×2 (07:09→20:44)
[2017-09-26] MEDS: Aspirin 81 MG Tab.EC PO SCH (09:08)
[2017-09-26] MEDS: Clopidogrel 75 MG Tab PO SCH (09:08)
[2017-09-26] MEDS: Metoprolol Tartrate 25 MG Tab PO SCH ×2 (09:08→20:44)
--- NOTE | 2017-09-26 11:02 | PCM.PN ---
- General Info Date of Service: 09/26/17 Subjective Update: This patient has shown further improvement over the past 24 hours, she is been able to walk short distances in his only use the BiPAP a short amount of time. Has no further significant cough and has remained afebrile with good vital signs. Functional Status: Reports: Pain Controlled, Tolerating Diet, Urinating - Review of Systems General: Reports: Weakness. Denies: Fever, Chills Pulmonary: Reports: Shortness of Breath. Denies: Cough, Sputum, Hemoptysis, Wheezing Cardiovascular: Reports: Dyspnea on Exertion. Denies: Chest Pain, Palpitations , Orthopnea, PND, Edema Gastrointestinal: Reports: No Symptoms - Patient Data Vitals - Most Recent: Last Vital Signs Temp 95.9 F 09/26/17 08:00 Pulse 88 09/26/17 10:49 Resp 17 09/26/17 08:00 BP 137/71 09/26/17 09:08 Pulse Ox 91 L 09/26/17 10:49 Weight - Most Recent: 91 lb 14.924 oz I&O - Last 24 Hours: Intake & Output 09/25/17 09/26/17 09/26/17 22:59 06:59 14:59 Intake Total 390 Output Total 950 200 Balance -950 190 Med Orders - Current: Current Medications Acetaminophen (Tylenol) 650 mg PO Q4H PRN PRN Reason: Pain (Mild 1-3)/fever Albuterol (Proventil Neb Soln) 2.5 mg NEB Q4H PRN PRN Reason: Shortness Of Breath/wheezing Last Admin: 09/25/17 17:22 Dose: 2.5 mg Albuterol/Ipratropium (Duoneb 3.0-0.5 Mg/3 Ml) 3 ml NEB QIDRT [facility] Last Admin: 09/26/17 10:47 Dose: 3 ml Aspirin (Halfprin) 81 mg PO DAILY [facility] Last Admin: 09/26/17 09:08 Dose: 81 mg Atorvastatin Calcium (Lipitor) 80 mg PO BEDTIME [facility] Last Admin: 09/25/17 20:43 Dose: 80 mg Benzonatate (Tessalon Perles) 100 mg PO TID PRN PRN Reason: Cough Calcium Carbonate/Glycine (Tums) 500 mg PO Q2H PRN PRN Reason: Indigestion Clopidogrel Bisulfate (Plavix) 75 mg PO DAILY [facility] Last Admin: 09/26/17 09:08 Dose: 75 mg Guaifenesin/Codeine Phosphate (Robitussin Ac) 10 ml PO Q4H PRN PRN Reason: Cough Ibuprofen (Motrin) 600 mg PO Q6H PRN PRN Reason: Pain/Fever Last Admin: 09/22/17 13:13 Dose: 600 mg Lorazepam (Ativan) 0.5 mg PO Q4H PRN PRN Reason: Anxiety Last Admin: 09/25/17 22:34 Dose: 0.5 mg Lorazepam (Ativan) 0.5 - 1 mg IVPUSH Q4H PRN PRN Reason: Anxiety Last Admin: 09/22/17 21:09 Dose: 1 mg Metoprolol Tartrate (Lopressor) 12.5 mg PO BID [facility] Last Admin: 09/26/17 09:08 Dose: 12.5 mg Mirtazapine (Remeron) 30 mg PO BEDTIME [facility] Last Admin: 09/25/17 20:43 Dose: 30 mg Mometasone Furoate/Formoterol Fumar (Dulera 200-5 Mcg) 2 puff IH BIDRT [facility] Last Admin: 09/26/17 07:09 Dose: 2 inhalation Morphine Sulfate (Morphine 10 Mg/0.5 Ml Oral Syringe) 5 mg PO Q4H PRN PRN Reason: Dyspnea Last Admin: 09/25/17 22:34 Dose: 5 mg Ondansetron HCl (Zofran Odt) 4 mg PO Q6H PRN PRN Reason: Nausea able to take PO Polyethylene Glycol (Miralax) 17 gm PO DAILY PRN PRN Reason: Constipation Last Admin: 09/23/17 14:45 Dose: 17 gm Senna/Docusate Sodium (Senna Plus) 1 tab PO BID PRN PRN Reason: Constipation Last Admin: 09/23/17 14:45 Dose: 1 tab Sodium Chloride (Saline Flush) 10 ml FLUSH ASDIRECTED PRN PRN Reason: Keep Vein Open Last Admin: 09/23/17 17:45 Dose: 10 ml Tiotropium [place] (Spiriva Handihaler) 18 mcg INH DAILY@0700 [facility] Last Admin: 09/26/17 07:09 Dose: 1 inhalation Tizanidine HCl (Zanaflex) 4 mg PO Q8H PRN PRN Reason: muscle spasms Discontinued Medications Albuterol (Proventil Neb Soln) 2.5 mg NEB ONETIME ONE Stop: 09/20/17 17:15 Last Admin: 09/20/17 17:36 Dose: 2.5 mg Albuterol/Ipratropium (Duoneb 3.0-0.5 Mg/3 Ml) 3 ml NEB QID [facility] Last Admin: 09/21/17 06:10 Dose: 3 ml Atorvastatin Calcium (Lipitor) Confirm Administered Dose 20 mg .ROUTE .STK-MED ONE Stop: 09/20/17 21:24 Last Admin: 09/20/17 21:33 Dose: Not Given Doxycycline Hyclate (Vibramycin) 100 mg PO BID [facility] Last Admin: 09/21/17 09:20 Dose: 100 mg Sodium Chloride (Normal Saline) 1,000 mls @ 250 mls/hr IV ASDIRECTED [facility] Sodium Chloride (Normal Saline) 1,000 mls @ 100 mls/hr IV ASDIRECTED [facility] Last Admin: 09/21/17 08:01 Dose: 100 mls/hr Ceftriaxone Sodium 1 gm/ (Sodium Chloride) 50 mls @ 100 mls/hr IV Q24H [facility] Last Admin: 09/24/17 18:03 Dose: 100 mls/hr Levofloxacin/Dextrose 750 mg/ (Premix) 150 mls @ 100 mls/hr IV Q48H [facility] Last Admin: 09/21/17 21:09 Dose: 100 mls/hr Potassium Chloride/Dextrose/Sod Cl (D5 1/2 Ns W/ 20 Meq/L Kcl) 1,000 mls @ 100 mls/hr IV ASDIRECTED [facility] Last Admin: 09/22/17 07:54 Dose: 100 mls/hr Levofloxacin/Dextrose 750 mg/ (Premix) 150 mls @ 100 mls/hr IV Q24H [facility] Last Admin: 09/25/17 20:37 Dose: 100 mls/hr Methylprednisolone Sodium Succinate (Solu-Medrol) 125 mg IVPUSH ONETIME ONE Stop: 09/20/17 17:17 Last Admin: 09/20/17 17:36 Dose: 125 mg Methylprednisolone Sodium Succinate (Solu-Medrol) 62.5 mg IVPUSH Q8H [facility] Last Admin: 09/25/17 02:04 Dose: 62.5 mg Methylprednisolone Sodium Succinate (Solu-Medrol) 40 mg IV Q8H [facility] Last Admin: 09/26/17 09:28 Dose: 40 mg Mometasone Furoate/Formoterol Fumar (Dulera 200-5 Mcg) 2 puff IH BID [facility] Last Admin: 09/20/17 20:54 Dose: 2 puff - Exam Quality Assessment: Supplemental Oxygen, DVT Prophylaxis General: Alert, Oriented, Cooperative, Mild Distress Lungs: Normal Respiratory Effort, Decreased Breath Sounds. No: Crackles, Rales , Rhonchi, Wheezing Cardiovascular: Regular Rate, Regular Rhythm, No Murmurs GI/Abdominal Exam: Soft, Non-Tender, No Organomegaly, No Distention Extremities: Non-Tender, No Pedal Edema Skin: Warm, Dry, Intact - Problem List Review Problem List Initiated/Reviewed/Updated: Yes - My Orders Last 24 Hours: My Active Orders 09/26/17 10:55 Transfer Patient (Change bed) [ADT] Routine 09/26/17 10:58 Cardiac Monitoring Discontinue [RC] Click to Edit Vital Signs [RC] Q4H 09/26/17 11:00 Levofloxacin [Levaquin] 500 mg PO Q24H 09/27/17 08:00 predniSONE 40 mg PO WITHBREAKFAST - Plan Plan:: ASSESSMENT AND PLAN - Acute bronchitis with COPD exacerbation - further improvement over last 24 hours noted with less shortness of breath and cough. Minimal use of BiPAP for the past 24 hours -Convert to oral levofloxacin -Goal oxygen saturation of 88-92% -Discontinue Solu-Medrol -Prednisone 40 mg by mouth daily -Acapella -Scheduled and as needed nebulizers -Supplement oxygen -Continue home medications Coronary artery disease - history of myocardial infarction. No active symptoms. -Continue home medical management Maintenance issues - - DVT prophylaxis - mechanical - GI prophylaxis - not indicated - Nutrition - regular diet Disposition - anticipate discharge to home after the hospital stay Primary care physician - Dr Palacios
[2017-09-26] MEDS: LORazepam 0.5 MG Tab PO PRN ×2 (13:18→20:45)
[2017-09-26] MEDS: Polyethylene Glycol 3350 Powder 17 GM Packet PO PRN (14:27)
[2017-09-26] MEDS ORDERED: Levofloxacin 500 MG Tab PO SCH (16:30)
[2017-09-26] MEDS: Mirtazapine 15 MG Tab PO SCH (20:44)
[2017-09-26] MEDS: atorvaSTATin 20 MG Tab PO SCH (20:44)
[2017-09-27] MEDS: Albuterol/Ipratropium 3.0-0.5 MG/3 ML Neb Soln NEB SCH ×3 (07:04→14:00)
[2017-09-27] MEDS: Formoterol/Mometasone 200-5 MCG 8.8 GM Inhaler IH SCH (07:04)
[2017-09-27] MEDS: Tiotropium Inhaler 18 MCG Inhalation Powder Cap Kit of 5 INH SCH (07:04)
[2017-09-27] MEDS ORDERED: predniSONE 20 MG Tab PO SCH (08:00)
[2017-09-27] MEDS: Metoprolol Tartrate 25 MG Tab PO SCH (08:23)
[2017-09-27 08:25] VITALS: BP 118/66
[2017-09-27] MEDS: Aspirin 81 MG Tab.EC PO SCH (08:25)
[2017-09-27] MEDS: Clopidogrel 75 MG Tab PO SCH (08:25)
--- NOTE | 2017-09-27 10:25 | PCM.DCSUM1 ---
Discharge Summary - Hospital Course Brief History: This patient is a 57-year-old woman who is admitted through the emergency room with increased shortness of breath cough secondary to bronchitis with COPD exacerbation. Resulting in acute on chronic hypoxic and hypercapnic respiratory failure. - Discharge Data Discharge Date: 09/27/17 Discharge Disposition: Home, Self-Care 01 Condition: Fair - Discharge Diagnosis/Problem(s) (1) Acute bronchitis SNOMED Code(s): 42141513 ICD Code: J20.9 - ACUTE BRONCHITIS, UNSPECIFIED Status: Acute Current Visit: Yes Qualifiers: Bronchitis organism: unspecified organism Qualified Code(s): J20.9 - Acute bronchitis, unspecified (2) Acute respiratory failure with hypoxia and hypercapnia SNOMED Code(s): 43716224, 190890944 ICD Code: J96.01 - ACUTE RESPIRATORY FAILURE WITH HYPOXIA; J96.02 - ACUTE RESPIRATORY FAILURE WITH HYPERCAPNIA Status: Acute Current Visit: Yes (3) COPD (chronic obstructive pulmonary disease) SNOMED Code(s): 09024017 ICD Code: J44.9 - CHRONIC OBSTRUCTIVE PULMONARY DISEASE, UNSPECIFIED Status : Chronic Current Visit: No (4) Hx of cancer of lung SNOMED Code(s): 418735178, 906260297 ICD Code: Z85.118 - PERSONAL HISTORY OF MALIGNANT NEOPLASM OF BRONCHUS AND LUNG Status: Chronic Current Visit: No - Patient Summary/Data Hospital Course: Emily presented to the emergency room on the day of admission, with several days of progressive shortness of breath and occasional cough. Symptoms were very severe on the night of admission, but she chose to wait until the morning for evaluation. She reports that she is short of breath with any activity and even at rest. She did have a fever of 100. She has an occasional cough that has produced yellow sputum. She does not have any chest pain. She has had some nausea and upset stomach but no vomiting. Appetite has been okay. She has been weak compared to baseline but has not had any falls. No change in bowel or bladder habits. No recent antibiotics or steroids. No notable sick contacts other than possibly a niece. Workup in the emergency room was suggestive of acute bronchitis with a COPD exacerbation and respiratory failure with hypoxia and hypercapnia. She has received steroids and nebulizer treatment. She will be admitted for further management. On admission she was continued on supplemental oxygen, received IV fluids for hydration, IV Solu-Medrol, and IV doxycycline. She remained stable during the first 24 hours her hospital stay, later into the second day developed increased respiratory compromise with decrease in level of consciousness. She was transferred to the intensive care unit, blood gases did show evidence of CO2 retention. She was placed on noninvasive positive pressure ventilation and stabilized. She slowly improved over the next several days of hospitalization. She will requires supplemental oxygen at the time of discharge. On the morning of discharge she was placed on room air at rest and saturations dropped to 86%. She will receive an additional 2 days of oral antibiotic therapy with levofloxacin. Antibiotic coverage had been expanded when she was transferred to the intensive care unit to levofloxacin and ceftriaxone. She is completed her course of steroids and will not be placed on oral prednisone at the time of discharge. Activity will be as tolerated and she will resume her usual diet. Follow-up appointment will be scheduled with her primary care provider within one week. - Patient Instructions Diet: Usual Diet as Tolerated Activity: As Tolerated Other/Special Instructions: Discharge to home with home oxygen 2 L/m via nasal cannula. Please schedule follow-up appointment with Dr. Palacios within one week. - Discharge Plan Prescriptions/Med Rec: Levofloxacin [Levaquin] 500 mg PO Q24H #2 tablet Home Medications: Home Meds Albuterol Sulfate [Proair Hfa] 2 puff INH QID 10/12/14 [History] Albuterol [Proventil Neb Soln] 1 vial INH QID PRN 10/12/14 [History] Aspirin [Halfprin] 81 mg PO DAILY 10/12/14 [History] Budesonide/Formoterol [Symbicort 160-4.5 MCG] 2 puff INH BID 10/12/14 [History] Cholecalciferol (Vitamin D3) [Vitamin D3] 1 cap PO DAILY 10/12/14 [History] Clopidogrel [Plavix] 75 mg PO DAILY 10/12/14 [History] Mirtazapine [Remeron] 30 mg PO BEDTIME 10/12/14 [History] Nitroglycerin [Nitrostat] 1 tab SL ASDIRECTED 10/12/14 [History] Tiotropium [Spiriva HandiHaler] 18 mcg INH DAILY 10/12/14 [History] tiZANidine HCl [Zanaflex] 4 mg PO Q8H PRN 10/12/14 [History] Metoprolol Tartrate 12.5 mg PO BID 09/20/17 [History] atorvaSTATin [Lipitor] 80 mg PO BEDTIME 09/20/17 [History] Levofloxacin [Levaquin] 500 mg PO Q24H #2 tablet 09/27/17 [Rx] Referrals: Treva Palacios MD [Physician] - - Discharge Summary/Plan Comment DC Time >30 min.: No - Patient Data Vitals - Most Recent: Last Vital Signs Temp 95.9 F 09/27/17 08:00 Pulse 88 09/27/17 10:18 Resp 16 09/27/17 08:00 BP 118/66 09/27/17 08:23 Pulse Ox 86 L 09/27/17 10:18 Weight - Most Recent: 91 lb 14.924 oz I&O - Last 24 hours: Intake & Output 09/26/17 09/27/17 09/27/17 22:59 06:59 14:59 Intake Total 240 Output Total 200 500 Balance -200 -260 Med Orders - Current: Current Medications Acetaminophen (Tylenol) 650 mg PO Q4H PRN PRN Reason: Pain (Mild 1-3)/fever Albuterol (Proventil Neb Soln) 2.5 mg NEB Q4H PRN PRN Reason: Shortness Of Breath/wheezing Last Admin: 09/25/17 17:22 Dose: 2.5 mg Albuterol/Ipratropium (Duoneb 3.0-0.5 Mg/3 Ml) 3 ml NEB QIDRT [facility] Last Admin: 09/27/17 07:04 Dose: 3 ml Aspirin (Halfprin) 81 mg PO DAILY [facility] Last Admin: 09/27/17 08:25 Dose: 81 mg Atorvastatin Calcium (Lipitor) 80 mg PO BEDTIME [facility] Last Admin: 09/26/17 20:44 Dose: 80 mg Benzonatate (Tessalon Perles) 100 mg PO TID PRN PRN Reason: Cough Calcium Carbonate/Glycine (Tums) 500 mg PO Q2H PRN PRN Reason: Indigestion Clopidogrel Bisulfate (Plavix) 75 mg PO DAILY [facility] Last Admin: 09/27/17 08:25 Dose: 75 mg Guaifenesin/Codeine Phosphate (Robitussin Ac) 10 ml PO Q4H PRN PRN Reason: Cough Ibuprofen (Motrin) 600 mg PO Q6H PRN PRN Reason: Pain/Fever Last Admin: 09/22/17 13:13 Dose: 600 mg Levofloxacin (Levaquin) 500 mg PO Q24H [facility] Last Admin: 09/26/17 16:07 Dose: 500 mg Lorazepam (Ativan) 0.5 mg PO Q4H PRN PRN Reason: Anxiety Last Admin: 09/26/17 20:45 Dose: 0.5 mg Lorazepam (Ativan) 0.5 - 1 mg IVPUSH Q4H PRN PRN Reason: Anxiety Last Admin: 09/22/17 21:09 Dose: 1 mg Metoprolol Tartrate (Lopressor) 12.5 mg PO BID [facility] Last Admin: 09/27/17 08:23 Dose: 12.5 mg Mirtazapine (Remeron) 30 mg PO BEDTIME [facility] Last Admin: 09/26/17 20:44 Dose: 30 mg Mometasone Furoate/Formoterol Fumar (Dulera 200-5 Mcg) 2 puff IH BIDRT [facility] Last Admin: 09/27/17 07:04 Dose: 2 inhalation Morphine Sulfate (Morphine 10 Mg/0.5 Ml Oral Syringe) 5 mg PO Q4H PRN PRN Reason: Dyspnea Last Admin: 09/25/17 22:34 Dose: 5 mg Ondansetron HCl (Zofran Odt) 4 mg PO Q6H PRN PRN Reason: Nausea able to take PO Polyethylene Glycol (Miralax) 17 gm PO DAILY PRN PRN Reason: Constipation Last Admin: 09/26/17 14:27 Dose: 17 gm Prednisone (Prednisone) 40 mg PO WITHBREAKFAST [facility] Last Admin: 09/27/17 08:23 Dose: 40 mg Senna/Docusate Sodium (Senna Plus) 1 tab PO BID PRN PRN Reason: Constipation Last Admin: 09/23/17 14:45 Dose: 1 tab Sodium Chloride (Saline Flush) 10 ml FLUSH ASDIRECTED PRN PRN Reason: Keep Vein Open Last Admin: 09/23/17 17:45 Dose: 10 ml Tiotropium [place] (Spiriva Handihaler) 18 mcg INH DAILY@0700 [facility] Last Admin: 09/27/17 07:04 Dose: 1 inhalation Tizanidine HCl (Zanaflex) 4 mg PO Q8H PRN PRN Reason: muscle spasms Discontinued Medications Albuterol (Proventil Neb Soln) 2.5 mg NEB ONETIME ONE Stop: 09/20/17 17:15 Last Admin: 09/20/17 17:36 Dose: 2.5 mg Albuterol/Ipratropium (Duoneb 3.0-0.5 Mg/3 Ml) 3 ml NEB QID [facility] Last Admin: 09/21/17 06:10 Dose: 3 ml Atorvastatin Calcium (Lipitor) Confirm Administered Dose 20 mg .ROUTE .STK-MED ONE Stop: 09/20/17 21:24 Last Admin: 09/20/17 21:33 Dose: Not Given Doxycycline Hyclate (Vibramycin) 100 mg PO BID [facility] Last Admin: 09/21/17 09:20 Dose: 100 mg Sodium Chloride (Normal Saline) 1,000 mls @ 250 mls/hr IV ASDIRECTED [facility] Sodium Chloride (Normal Saline) 1,000 mls @ 100 mls/hr IV ASDIRECTED [facility] Last Admin: 09/21/17 08:01 Dose: 100 mls/hr Ceftriaxone Sodium 1 gm/ (Sodium Chloride) 50 mls @ 100 mls/hr IV Q24H [facility] Last Admin: 09/24/17 18:03 Dose: 100 mls/hr Levofloxacin/Dextrose 750 mg/ (Premix) 150 mls @ 100 mls/hr IV Q48H [facility] Last Admin: 09/21/17 21:09 Dose: 100 mls/hr Potassium Chloride/Dextrose/Sod Cl (D5 1/2 Ns W/ 20 Meq/L Kcl) 1,000 mls @ 100 mls/hr IV ASDIRECTED [facility] Last Admin: 09/22/17 07:54 Dose: 100 mls/hr Levofloxacin/Dextrose 750 mg/ (Premix) 150 mls @ 100 mls/hr IV Q24H [facility] Last Admin: 09/25/17 20:37 Dose: 100 mls/hr Methylprednisolone Sodium Succinate (Solu-Medrol) 125 mg IVPUSH ONETIME ONE Stop: 09/20/17 17:17 Last Admin: 09/20/17 17:36 Dose: 125 mg Methylprednisolone Sodium Succinate (Solu-Medrol) 62.5 mg IVPUSH Q8H [facility] Last Admin: 09/25/17 02:04 Dose: 62.5 mg Methylprednisolone Sodium Succinate (Solu-Medrol) 40 mg IV Q8H [facility] Last Admin: 09/26/17 09:28 Dose: 40 mg Mometasone Furoate/Formoterol Fumar (Dulera 200-5 Mcg) 2 puff IH BID [facility] Last Admin: 09/20/17 20:54 Dose: 2 puff - Exam Quality Assessment: Reports: Supplemental Oxygen, DVT Prophylaxis General: Reports: Alert, Oriented, Cooperative, No Acute Distress Lungs: Reports: Decreased Breath Sounds. Denies: Rales, Rhonchi, Wheezing Cardiovascular: Reports: Regular Rate, Regular Rhythm, No Murmurs GI/Abdominal Exam: Soft, Non-Tender, No Organomegaly, No Distention Extremities: Non-Tender, No Pedal Edema Skin: Reports: Warm, Dry, Intact
[2017-09-27] MEDS: LORazepam 0.5 MG Tab PO PRN (14:00)
== END 2017-09-27 14:24 | disposition home or self-care (01) | DRG 190 ==
LOC: JP.ED 15:30 → JP.MS 19:16 → JP.ICU 09-21 17:10
PROVIDERS: ADMIT Internal Medicine; ATTEND Hospitalist
DX: J44.0 Chronic obstructive pulmonary disease with (acute) lower respiratory infection (principal); J96.01 Acute respiratory failure with hypoxia; J96.02 Acute respiratory failure with hypercapnia; E87.2 Acidosis; J20.9 Acute bronchitis, unspecified; J44.1 Chronic obstructive pulmonary disease with (acute) exacerbation; I25.10 Atherosclerotic heart disease of native coronary artery without angina pectoris; R06.02 Shortness of breath; R09.02 Hypoxemia; Z87.891 Personal history of nicotine dependence; Z85.118 Personal history of other malignant neoplasm of bronchus and lung; I25.2 Old myocardial infarction; H54.7 Unspecified visual loss; Z79.82 Long term (current) use of aspirin
CPT/HCPCS: 36415; 36600; 71046 ×2; 80053; 82803; 85025; 94640; 96374; 99285; J2930; J7050; 80048; 83735; 85027; 94660; 94667; 94762; A9270-GY; J0696; J1956; J2060; J2920; J3480; J7040; J7620

== ENCOUNTER 2019-01-06 11:48 | Inpatient (IN) | payer MEDICARE, MEDICAID ==
[2019-01-06] MEDS ORDERED: Piperacillin/Tazobactam 4.5 GM in Sodium Chloride 0.9% 100 ML IV ONE (12:48)
--- NOTE | 2019-01-06 13:02 | EDM.PDOC ---
ED HPI GENERAL MEDICAL PROBLEM - General Chief Complaint: General Stated Complaint: SWELLING IN FACE AND NOW IN FEET Time Seen by Provider: 01/06/19 12:30 Source of Information: Reports: Patient, Family History Limitations: Reports: No Limitations - History of Present Illness INITIAL COMMENTS - FREE TEXT/NARRATIVE: 58-year-old female with a worsening swollen painful left upper lip over the past 2 days. It started as a small lump in her lateral upper lip for the past couple of weeks, over the past 2-3 days it's markedly increased in size and tenderness. She was seen in the clinic yesterday, small incision was made but only blood was expelled, she was put on clindamycin and pain medications but it' s worsening. She now has erythema extending laterally down the perioral area of the face and onto the left jaw. She feels ill. She has very severe COPD which is stable. No vomiting. Some intermittent chills. Associated Symptoms: Reports: Fever/Chills, Malaise, Weakness Face/Facial Pain Score (Numeric/FACES): 7 - Related Data Allergies Allergy/AdvReac Type Severity Reaction Status Date / Time No Known Allergies Allergy Verified 09/12/16 10:16 Home Meds: Home Meds Albuterol Sulfate [Proair Hfa] 2 puff INH QID 10/12/14 [History] Albuterol [Proventil Neb Soln] 1 vial INH QID PRN 10/12/14 [History] Aspirin [Halfprin] 81 mg PO DAILY 10/12/14 [History] Budesonide/Formoterol [Symbicort 160-4.5 MCG] 2 puff INH BID 10/12/14 [History] Cholecalciferol (Vitamin D3) [Vitamin D3] 1 cap PO DAILY 10/12/14 [History] Clopidogrel [Plavix] 75 mg PO DAILY 10/12/14 [History] Mirtazapine [Remeron] 30 mg PO BEDTIME 10/12/14 [History] Nitroglycerin [Nitrostat] 1 tab SL ASDIRECTED 10/12/14 [History] Tiotropium [Spiriva HandiHaler] 18 mcg INH DAILY 10/12/14 [History] tiZANidine HCl [Zanaflex] 4 mg PO Q8H PRN 10/12/14 [History] atorvaSTATin [Lipitor] 80 mg PO BEDTIME 09/20/17 [History] Clindamycin HCl 300 mg PO Q6HR 01/06/19 [History] Hydrocodone/Acetaminophen [Hydrocodon-Acetaminophn 10-325] 1 tab PO Q4H PRN [History] Metoprolol Tartrate 50 mg PO BID 01/06/19 [History] Past Medical History HEENT History: Reports: Impaired Vision Cardiovascular History: Reports: CA, SOB on Exertion Respiratory History: Reports: COPD, Other (See Below) Other Respiratory History: lung cancer [employer] History: Reports: , Spontaneous , Other (See Below) Other [employer] History: c sections x3 Psychiatric History: Reports: Depression Oncologic (Cancer) History: Reports: Lung Other Oncologic History: tumor right leg x3 - Infectious Disease History Infectious Disease History: Reports: Chicken Pox - Past Surgical History Other Neurological Surgeries/Procedures: cervical spine surgery Musculoskeletal Surgical History: Reports: Other (See Below) Social & Family History - Family History Cardiac: Reports: CAD - Tobacco Use Smoking Status *Q: Former Smoker Used Tobacco, but Quit: Yes Month/Year Tobacco Last Used: 10 years - Caffeine Use Caffeine Use: Reports: None - Recreational Drug Use Recreational Drug Use: No ED ROS GENERAL - Review of Systems Review Of Systems: See Below Constitutional: Reports: Chills, Malaise. Denies: Fever HEENT: Reports: Other (Swelling and pain of the left lateral lip) Respiratory: Reports: Shortness of Breath (Chronic and baseline) Skin: Reports: Erythema (Left face and left upper lip) ED EXAM, GENERAL - Physical Exam Exam: See Below Exam Limited By: No Limitations General Appearance: Alert, Other (Appears tired, uncomfortable) Head: Facial Swelling (Significant swelling of the left upper lip is present with tenderness and erythema. Some perceived fluctuance is present is present.) Respiratory/Chest: Decreased Breath Sounds (Just wasn't reaching the abscess is possible) GI/Abdominal: Other Neurological: Alert, Oriented Course - Vital Signs Text/Narrative:: An ultrasound confirmed a fluid pocket in the left upper lip. Using Sensorcaine , a superior and anterior alveolar nerve block was done on the left upper lip. After good anesthesia, #11 scalpel was used to incise the abscess from the inner mucosa and significant purulent discharge was expelled. A culture was taken. Patient will be admitted for IV antibiotics, warm compresses and pain control for the next 24-48 hours. Last Recorded V/S: Last Vital Signs Temp 98.8 F 01/06/19 19:00 Pulse 102 H 01/06/19 19:00 Resp 18 01/06/19 19:00 BP 116/62 01/06/19 19:00 Pulse Ox 96 01/06/19 19:00 - Orders/Labs/Meds Orders: Medication Orders Acetaminophen (Tylenol) 650 mg PO Q4H PRN PRN Reason: Pain (Mild 1-3)/fever Hydrocodone Bitart/Acetaminophen ([place] 325-10 Mg) 1 tab PO Q4H PRN PRN Reason: pain Last Admin: 01/06/19 19:41 Dose: 1 tab Albuterol (Proventil Neb Soln) 2.5 mg INH QIDRT [facility] Last Admin: 01/06/19 15:56 Dose: Not Given Albuterol (Proventil Neb Soln) 2.5 mg NEB Q4H PRN PRN Reason: Shortness Of Breath/wheezing Last Admin: 01/06/19 18:22 Dose: 2.5 mg Aspirin (Halfprin) 81 mg PO DAILY [facility] Last Admin: 01/06/19 16:39 Dose: 81 mg Atorvastatin Calcium (Lipitor) 80 mg PO BEDTIME [facility] Clopidogrel Bisulfate (Plavix) 75 mg PO DAILY [facility] Last Admin: 01/06/19 16:39 Dose: 75 mg Glycopyrrolate (Seebri Neohaler) 0 mcg IH BIDRT [facility] Hydromorphone HCl (Dilaudid) 0.5 mg IVPUSH Q2H PRN PRN Reason: SEVERE PAIN (7-10) Piperacillin/Tazobactam/ (Dextrose 3.375 gm/ Premix) 50 mls @ 100 mls/hr IV Q6H [facility] Last Admin: 01/06/19 19:42 Dose: 100 mls/hr Sodium Chloride (Normal Saline) 1,000 mls @ 75 mls/hr IV ASDIRECTED [facility] Last Admin: 01/06/19 18:15 Dose: 75 mls/hr Lactobacillus Rhamnosus (Culturelle) 1 cap PO BID [facility] Magnesium Hydroxide (Milk Of Magnesia) 30 ml PO Q12H PRN PRN Reason: Constipation Metoprolol Tartrate (Lopressor) 50 mg PO BID [facility] Mirtazapine (Remeron) 30 mg PO BEDTIME [facility] Ondansetron HCl (Zofran Odt) 4 mg PO Q6H PRN PRN Reason: Nausea able to take PO Ondansetron HCl (Zofran) 4 mg IV Q6H PRN PRN Reason: Nausea/Vomiting Fluticasone/Salmeterol (Fluticasone-Salmeterol 232-14 Mcg Powder Inha) 0 puff INH BIDRT [facility] Senna/Docusate Sodium (Senna Plus) 1 tab PO BID PRN PRN Reason: Constipation Tizanidine HCl (Zanaflex) 4 mg PO Q8H PRN PRN Reason: MUSCLE SPASM Labs: Laboratory Tests 01/06/19 01/06/19 Range/Units 12:58 12:58 WBC 11.2 H (4.5-11.0) K/uL RBC 4.31 (3.30-5.50) M/uL Hgb 12.3 (12.0-15.0) g/dL Hct 40.7 (36.0-48.0) % MCV 94 (80-98) fL MCH 29 (27-31) pg MCHC 30 L (32-36) % Plt Count 171 (150-400) K/uL Neut % (Auto) 81 H (36-66) % Lymph % (Auto) 9 L (24-44) % [place] % (Auto) 9 H (2-6) % Eos % (Auto) 1 L (2-4) % Baso % (Auto) 0 (0-1) % Sodium 142 (140-148) mmol/L Potassium 3.7 (3.6-5.2) mmol/L Chloride 102 (100-108) mmol/L Carbon Dioxide 33 H (21-32) mmol/L Anion Gap 10.7 (5.0-14.0) mmol/L BUN 11 (7-18) mg/dL Creatinine 0.8 (0.6-1.0) mg/dL Est Cr Clr Drug Dosing 63.87 mL/min Estimated GFR (MDRD) > 60 (>60) Glucose 156 H (74-106) mg/dL Calcium 9.1 (8.5-10.1) mg/dL Meds: Medications Generic Name Dose Route Start Last Admin Trade Name Freq PRN Reason Stop Dose Admin Acetaminophen 650 mg 01/06/19 15:30 Tylenol PO Q4H PRN Pain (Mild 1-3)/fever Hydrocodone Bitart/Acetaminophen 1 tab 01/06/19 15:30 01/06/19 19:41 [place] 325-10 Mg PO 1 tab Q4H PRN Administration pain Albuterol 2.5 mg 01/06/19 15:30 01/06/19 15:56 Proventil Neb Soln INH Not Given QIDRT [facility] Albuterol 2.5 mg 01/06/19 15:30 01/06/19 18:22 Proventil Neb Soln NEB 2.5 mg Q4H PRN Administration Shortness Of Breath/wheezing Aspirin 81 mg 01/06/19 16:30 01/06/19 16:39 Halfprin PO 81 mg DAILY [facility] Administration Atorvastatin Calcium 80 mg 01/06/19 21:00 Lipitor PO BEDTIME [facility] Clopidogrel Bisulfate 75 mg 01/06/19 16:30 01/06/19 16:39 Plavix PO 75 mg DAILY [facility] Administration Glycopyrrolate 0 mcg 01/07/19 09:00 Seebri Neohaler IH BIDRT [facility] Hydromorphone HCl 0.5 mg 01/06/19 15:45 Dilaudid IVPUSH Q2H PRN SEVERE PAIN (7-10) Piperacillin/Tazobactam/ 50 mls @ 100 mls/hr 01/06/19 20:00 01/06/19 19:42 Dextrose 3.375 gm/ Premix IV 100 mls/hr Q6H [facility] Administration Sodium Chloride 1,000 mls @ 75 mls/hr 01/06/19 15:30 01/06/19 18:15 Normal Saline IV 75 mls/hr ASDIRECTED [facility] Administration Lactobacillus Rhamnosus 1 cap 01/06/19 21:00 Culturelle PO BID [facility] Magnesium Hydroxide 30 ml 01/06/19 15:30 Milk Of Magnesia PO Q12H PRN Constipation Metoprolol Tartrate 50 mg 01/06/19 21:00 Lopressor PO BID [facility] Mirtazapine 30 mg 01/06/19 21:00 Remeron PO BEDTIME [facility] Ondansetron HCl 4 mg 01/06/19 15:30 Zofran Odt PO Q6H PRN Nausea able to take PO Ondansetron HCl 4 mg 01/06/19 15:30 Zofran IV Q6H PRN Nausea/Vomiting Fluticasone/Salmeterol 0 puff 01/06/19 21:00 Fluticasone-Salmeterol 232-14 Mcg Powder Inha INH BIDRT [facility] Senna/Docusate Sodium 1 tab 01/06/19 15:30 Senna Plus PO BID PRN Constipation Tizanidine HCl 4 mg 01/06/19 15:42 Zanaflex PO Q8H PRN MUSCLE SPASM Discontinued Medications Generic Name Dose Route Start Last Admin Trade Name Freq PRN Reason Stop Dose Admin Hydrocodone Bitart/Acetaminophen 1 tab 01/06/19 13:40 01/06/19 13:46 [place] 325-10 Mg PO 01/06/19 13:41 1 tab ONETIME ONE Administration Albuterol/Ipratropium 3 ml 01/06/19 14:27 01/06/19 14:30 Duoneb 3.0-0.5 Mg/3 Ml NEB 01/06/19 14:28 3 ml ONETIME ONE Administration Albuterol/Ipratropium Confirm 01/06/19 14:28 01/06/19 15:23 Duoneb 3.0-0.5 Mg/3 Ml Administered 01/06/19 14:29 Not Given Dose 3 ml .ROUTE .STK-MED ONE Bupivacaine HCl/Epinephrine Bitart 1.8 ml 01/06/19 13:38 01/06/19 13:51 Marcaine 0.5%/Epinephrine 1:200,000 INJECT 01/06/19 13:39 1.8 ml ONETIME ONE Administration Piperacillin Sod/Tazobactam 100 mls @ 100 mls/hr 01/06/19 12:48 01/06/19 13: 12 Sod 4.5 gm/ Sodium Chloride IV 01/06/19 13:47 100 mls/hr ONETIME ONE Administration Methylprednisolone Sodium Succinate 125 mg 01/06/19 14:27 01/06/19 14:36 Solu-Medrol IVPUSH 01/06/19 14:28 125 mg ONETIME ONE Administration Departure - Departure Time of Disposition: 14:16 Disposition: Admitted As Inpatient 64 Clinical Impression: Abscess of lip, COPD (chronic obstructive pulmonary disease) - Discharge Information
[2019-01-06] MEDS ORDERED: Bupivacaine 0.5%/EPINEPHrine 1:200,000 1.8 ML Cartridge INJECT ONE (13:38)
[2019-01-06] MEDS ORDERED: Acetaminophen/HYDROcodone 325-10 MG Tab PO ONE (13:40)
--- NOTE | 2019-01-06 13:54 | PCM.HP ---
H&P History of Present Illness - General Date of Service: 01/06/19 Admit Problem/Dx: Admission Diagnosis/Problem Admission Diagnosis/Problem Cellulitis of face Source of Information: Patient, Family, Provider History Limitations: Reports: No Limitations - History of Present Illness Initial Comments - Free Text/Narative: CC: my lip is worse HPI: Emily presents to the emergency room today with increasing pain, swelling and redness involving her left upper lip and the left side of her face. She first noticed a small lump in her lip about 2 weeks ago. This was mildly tender on occasion but did not bother her significantly. Over the past 2 days she has had a fairly rapid increasing in swelling and pain in the upper lip on the left side. She describes a moderate achy pain that does not radiate. It's worse with any sort of pressure or opening her mouth. She did get some pain pills yesterday that have been helpful with the pain. Yesterday she was seen in the clinic and had an attempt at an incision and drainage but unfortunately no purulent material was expelled. She was started on clindamycin. Since the clinic visit yesterday her lip has gotten much more swollen and much more painful. She now has redness across her upper lip that spreads down onto the left side of her face. This is all progressed despite her antibiotic therapy. Her shortness of breath is at baseline. She has not had any fevers that she is aware of. No change in bowel or bladder habits. Otherwise she feels well. Workup in the emergency room revealed abscess based on ultrasound imaging. She has mild leukocytosis. The abscess has been incised and drained. She will be admitted for IV antibiotics with a worsening condition despite outpatient antibiotics. Face/Facial Pain Score (Numeric/FACES): 7 - Related Data Allergies/Adverse Reactions: Allergies Allergy/AdvReac Type Severity Reaction Status Date / Time No Known Allergies Allergy Verified 09/12/16 10:16 Home Medications: Home Meds Albuterol Sulfate [Proair Hfa] 2 puff INH QID 10/12/14 [History] Albuterol [Proventil Neb Soln] 1 vial INH QID PRN 10/12/14 [History] Aspirin [Halfprin] 81 mg PO DAILY 10/12/14 [History] Budesonide/Formoterol [Symbicort 160-4.5 MCG] 2 puff INH BID 10/12/14 [History] Cholecalciferol (Vitamin D3) [Vitamin D3] 1 cap PO DAILY 10/12/14 [History] Clopidogrel [Plavix] 75 mg PO DAILY 10/12/14 [History] Mirtazapine [Remeron] 30 mg PO BEDTIME 10/12/14 [History] Nitroglycerin [Nitrostat] 1 tab SL ASDIRECTED 10/12/14 [History] Tiotropium [Spiriva HandiHaler] 18 mcg INH DAILY 10/12/14 [History] tiZANidine HCl [Zanaflex] 4 mg PO Q8H PRN 10/12/14 [History] atorvaSTATin [Lipitor] 80 mg PO BEDTIME 09/20/17 [History] Clindamycin HCl 300 mg PO Q6HR 01/06/19 [History] Hydrocodone/Acetaminophen [Hydrocodon-Acetaminophn 10-325] 1 tab PO Q4H PRN [History] Metoprolol Tartrate 50 mg PO BID 01/06/19 [History] Past Medical History HEENT History: Reports: Impaired Vision 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, SOB on Exertion Respiratory History: Reports: COPD, Other (See Below) Other Respiratory History: lung cancer [employer] History: Reports: , Spontaneous , Other (See Below) Other OB/BYN History: c sections x3 Psychiatric History: Reports: Depression Oncologic (Cancer) History: Reports: Lung Other Oncologic History: tumor right leg x3 - Infectious Disease History Infectious Disease History: Reports: Chicken Pox - Past Surgical History Other Neurological Surgeries/Procedures: cervical spine surgery Musculoskeletal Surgical History: Reports: Other (See Below) Social & Family History - Family History Cardiac: Reports: CAD - Tobacco Use Smoking Status *Q: Former Smoker Used Tobacco, but Quit: Yes Month/Year Tobacco Last Used: 10 years - Caffeine Use Caffeine Use: Reports: None - Alcohol Use Alcohol Use History: No - Recreational Drug Use Recreational Drug Use: No H&P Review of Systems - Review of Systems: Review Of Systems: See Below Free Text/Narrative: A complete 12 point review of systems was obtained. Pertinent positives and negatives are noted in the history of present illness. All other systems were reviewed and were negative except as noted. Exam - Exam Exam: See Below - Vital Signs Vital Signs: Last Vital Signs Temp 37.4 C 01/06/19 13:38 Pulse 98 01/06/19 13:38 Resp 16 01/06/19 13:38 BP 135/67 01/06/19 13:38 Pulse Ox 93 L 01/06/19 13:38 Weight: 54.1 kg - Exam Quality Assessment: Supplemental Oxygen General: Alert, Oriented, Cooperative, Mild Distress HEENT: Conjunctiva Clear, Other (left lateral upper lip very swollen and erythematous. No drainage. ). No: Scleral Icterus Neck: Supple, Trachea Midline. No: Lymphadenopathy Lungs: Clear to Auscultation, Decreased Breath Sounds (throughout ). No: Normal Respiratory Effort (increased work of breathing ) Cardiovascular: Regular Rate, Regular Rhythm, Other (heart sounds distant ) GI/Abdominal Exam: Normal Bowel Sounds, Soft, No Distention Extremities: No Pedal Edema, Other (right 4th toe swollen ). No: Increased Warmth Skin: Warm, Dry, Rash (erythema from left upper lip spreading down face to the jaw ) Neuro Extensive - Mental Status: Alert, Oriented x3, Nl Response to Commands Neuro Extensive - Motor, Sensory, Reflexes: No: Dysarthria, Abnormal Motor, Tremor Psychiatric: Alert, Normal Affect - Patient Data Lab Results Last 24 hrs: Laboratory Results - last 24 hr 01/06/19 01/06/19 Range/Units 12:58 12:58 WBC 11.2 H (4.5-11.0) K/uL RBC 4.31 (3.30-5.50) M/uL Hgb 12.3 (12.0-15.0) g/dL Hct 40.7 (36.0-48.0) % MCV 94 (80-98) fL MCH 29 (27-31) pg MCHC 30 L (32-36) % Plt Count 171 (150-400) K/uL Neut % (Auto) 81 H (36-66) % Lymph % (Auto) 9 L (24-44) % [place] % (Auto) 9 H (2-6) % Eos % (Auto) 1 L (2-4) % Baso % (Auto) 0 (0-1) % Sodium 142 (140-148) mmol/L Potassium 3.7 (3.6-5.2) mmol/L Chloride 102 (100-108) mmol/L Carbon Dioxide 33 H (21-32) mmol/L Anion Gap 10.7 (5.0-14.0) mmol/L BUN 11 (7-18) mg/dL Creatinine 0.8 (0.6-1.0) mg/dL Est Cr Clr Drug Dosing 63.87 mL/min Estimated GFR (MDRD) > 60 (>60) Glucose 156 H (74-106) mg/dL Calcium 9.1 (8.5-10.1) mg/dL Result Diagrams: 01/06/19 12:58 01/06/19 12:58 Imaging Impressions Last 24 hrs: US face/lip - images personally reviewed - there is a small fluid collection of the left upper lip concerning for abscess *Q Meaningful Use (ADM) - VTE Risk Assess *Q Each Risk Factor Represents 1 Point: Abnormal Pulmonary Function (COPD) Total Score 1 Point Risk Factors: 1 Each Risk Factor Represents 2 Points: Age 60 - 74 Years Total Score 2 Point Risk Factors: 2 Each Risk Factor Represents 3 Points: None Total Score 3 Point Risk Factors: 0 Each Risk Factor Represents 5 Points: None Total Score 5 Point Risk Factors: 0 Venous Thromboembolism Risk Factor Score *Q: 3 Problem List Initiated/Reviewed/Updated: Yes Orders Last 24hrs: Active Orders 24 hr Category Date Time Status Patient Status Manage Transfer [TRANSFER] Routine ADT 01/06/19 13:43 Ordered Head Neck Soft Tissue Lt [US] Stat Exams 01/06/19 12:48 Taken Resuscitation Status Routine Resus Stat 01/06/19 13:45 Ordered Assessment/Plan Comment:: ASSESSMENT AND PLAN - Left upper lip abscess and cellulitis - fairly rapid progression over last few days. Incision and debridement attempted yesterday and patient was started on antibiotics but despite this her condition has worsened. Abscess identified via ultrasound and has been drained in the emergency room. Gram stain shows moderate gram-positive cocci and a few gram-negative rods. Oral bacteria suspected based on the location of her abscess. No evidence for sepsis at this time. -Pip/Tazo -Pain control -Follow-up cultures Severe COPD - oxygen dependent at baseline. Symptoms are at baseline at this time. -Continue home medications -Continue oxygen supplementation Maintenance issues - - DVT prophylaxis - mechanical - GI prophylaxis - not indicated - Nutrition - regular - Bello catheter - not indicated CODE STATUS - full code Admission justification - This patient will be admitted for inpatient services and is medically appropriate meeting medical necessity for inpatient admission as outlined in my documentation. I reasonably expect the patient will require inpatient services that span a period time over 2 midnights. I reasonably expect this patient to be discharged or transferred within 96 hours [facility]. facial cellulitis and abscess, worsening despite outpatient antibiotics. Disposition - I would anticipate discharge home after the hospital stay Primary care physician - Michelle Morales M.D.
--- NOTE | 2019-01-06 14:01 | CRLUS ---
Indication: Swelling of the left upper lip Technique: Ultrasound examination of the left upper lip is performed with a high-resolution linear transducer. Comparison: None available Findings: There is a well-circumscribed, lobular fluid collection with low level internal echoes posteriorly in the area of swelling. This measures 1.6 x 2.0 x 1.3 centimeters. There is no sign of increased color Doppler flow in this structure to suggest that this is of vascular origin. A few normal appearing vessels are seen adjacent to this structure. The fluid collection is likely to be a focal hematoma. An abscess cannot be excluded, but there is no sign of increased color Doppler flow that would suggest active inflammation related to an abscess. Impression: Fullness of the left lip corresponds to a complex, lobulated cystic structure measuring 1.6 x 2.0 x 1.3 centimeters with low level internal echoes. This could be a hematoma or possibly an abscess. Dictated by Chao Benavides MD @ Jan 06 2019 1:57PM Signed by Dr. Chao Benavides @ Jan 06 2019 2:01PM
[2019-01-06] MEDS ORDERED: methylPREDNISolone Sodium Succinate 125 MG/2 ML SDV IVPUSH ONE (14:27)
[2019-01-06] MEDS ORDERED: Albuterol/Ipratropium 3.0-0.5 MG/3 ML Neb Soln NEB ONE (14:27)
[2019-01-06] MEDS ORDERED: Albuterol/Ipratropium 3.0-0.5 MG/3 ML Neb Soln ONE (14:28)
[2019-01-06] MEDS ORDERED: Magnesium Hydroxide 400 MG/5 ML Susp 30 ML Cup PO PRN (15:30)
[2019-01-06] MEDS ORDERED: Acetaminophen 325 MG Tab PO PRN (15:30)
[2019-01-06] MEDS ORDERED: Ondansetron 4 MG/2 ML SDV IV PRN (15:30)
[2019-01-06] MEDS ORDERED: TIZANIDINE HCL 4 MG PO PRN (15:30)
[2019-01-06] MEDS ORDERED: Ondansetron 4 MG Tab.DIS PO PRN (15:30)
[2019-01-06] MEDS ORDERED: tiZANidine 4 MG Tab PO PRN (15:42)
[2019-01-06] MEDS ORDERED: HYDROmorphone 0.5 MG/0.5 ML Syringe IVPUSH PRN (15:45)
[2019-01-06] MEDS: Albuterol 0.083% 2.5 MG/3 ML Neb Soln INH SCH ×2 (15:56→21:00)
[2019-01-06] MEDS: Aspirin 81 MG Tab.EC PO SCH (16:39)
[2019-01-06] MEDS: Clopidogrel 75 MG Tab PO SCH (16:39)
[2019-01-06] MEDS: Sodium Chloride 0.9% 1,000 ML IV SCH (18:15)
[2019-01-06] MEDS: Albuterol 0.083% 2.5 MG/3 ML Neb Soln NEB PRN (18:22)
[2019-01-06] MEDS: Acetaminophen/HYDROcodone 325-10 MG Tab PO PRN ×2 (19:41→23:52)
[2019-01-06] MEDS: Piperacillin/Tazobactam/Dext 3.375 GM in Premix Bag 1 BAG IV SCH (19:42)
[2019-01-06] MEDS ORDERED: Non-Formulary Medication 1 Each (Atorvastatin [Lipitor] 80 MG) PO SCH (21:00)
[2019-01-06] MEDS ORDERED: MIRTAZAPINE 30 MG PO SCH (21:00)
[2019-01-06] MEDS: atorvaSTATin 20 MG Tab PO SCH (21:04)
[2019-01-06] MEDS: Metoprolol Tartrate 50 MG Tab PO SCH (21:04)
[2019-01-06] MEDS: Lactobacillus Rhamnosus GG (Probiotic) Cap PO SCH (21:04)
[2019-01-06] MEDS: Mirtazapine 15 MG Tab PO SCH (21:04)
[2019-01-06] MEDS: Fluticasone-Salmeterol 232-14 MCG Powder Inhalent INH SCH (21:04)
[2019-01-07] MEDS: Piperacillin/Tazobactam/Dext 3.375 GM in Premix Bag 1 BAG IV SCH ×4 (02:10→19:56)
[2019-01-07] MEDS: Acetaminophen/HYDROcodone 325-10 MG Tab PO PRN ×3 (04:20→19:44)
[2019-01-07] MEDS: Fluticasone-Salmeterol 232-14 MCG Powder Inhalent INH SCH ×2 (07:21→20:09)
[2019-01-07] MEDS: Albuterol 0.083% 2.5 MG/3 ML Neb Soln INH SCH ×4 (07:21→20:00)
[2019-01-07] MEDS: Sodium Chloride 0.9% 1,000 ML IV SCH (07:52)
[2019-01-07] MEDS: Glycopyrrolate 15.6 MCG Cap.W.Dev Kit of 6 IH SCH ×2 (08:12→20:11)
[2019-01-07] MEDS: Metoprolol Tartrate 50 MG Tab PO SCH ×2 (08:44→20:14)
[2019-01-07] MEDS: Clopidogrel 75 MG Tab PO SCH (08:44)
[2019-01-07] MEDS: Aspirin 81 MG Tab.EC PO SCH (08:44)
[2019-01-07] MEDS: Lactobacillus Rhamnosus GG (Probiotic) Cap PO SCH ×2 (08:44→20:22)
--- NOTE | 2019-01-07 09:54 | PCM.PN ---
- General Info Date of Service: 01/07/19 Subjective Update: there were no acute events overnight. The patient reports less pain and swelling in her left upper lip. She still has mild to moderate pain but it is much better than yesterday. She has not had any fevers. Gram stain from the abscess drainage revealed gram-positive cocci and a few gram-negative rods. Identification is still pending. Shortness of breath is a little better today and essentially back to baseline. She has been stable on 2 L of oxygen. Functional Status: Reports: Pain Controlled, Tolerating Diet - Review of Systems General: Denies: Fever HEENT: Reports: Other (lip pain and swelling better) Pulmonary: Reports: Shortness of Breath (baseline) - Patient Data Vitals - Most Recent: Last Vital Signs Temp 35.5 C 01/07/19 06:40 Pulse 72 01/07/19 08:44 Resp 18 01/07/19 06:40 BP 126/58 L 01/07/19 08:44 Pulse Ox 95 01/07/19 07:23 Weight - Most Recent: 54.1 kg I&O - Last 24 Hours: Intake & Output 01/06/19 01/07/19 01/07/19 22:59 06:59 14:59 Intake Total 350 1740 103 Output Total 200 Balance 150 1740 103 Lab Results Last 24 Hours: Laboratory Results - last 24 hr 01/06/19 01/06/19 01/06/19 Range/Units 12:58 12:58 15:30 WBC 11.2 H (4.5-11.0) K/uL RBC 4.31 (3.30-5.50) M/uL Hgb 12.3 (12.0-15.0) g/dL Hct 40.7 (36.0-48.0) % MCV 94 (80-98) fL MCH 29 (27-31) pg MCHC 30 L (32-36) % Plt Count 171 (150-400) K/uL Neut % (Auto) 81 H (36-66) % Lymph % (Auto) 9 L (24-44) % [place] % (Auto) 9 H (2-6) % Eos % (Auto) 1 L (2-4) % Baso % (Auto) 0 (0-1) % Sodium 142 (140-148) mmol/L Potassium 3.7 (3.6-5.2) mmol/L Chloride 102 (100-108) mmol/L Carbon Dioxide 33 H (21-32) mmol/L Anion Gap 10.7 (5.0-14.0) mmol/L BUN 11 (7-18) mg/dL Creatinine 0.8 (0.6-1.0) mg/dL Est Cr Clr Drug Dosing 63.87 mL/min Estimated GFR (MDRD) > 60 (>60) Glucose 156 H (74-106) mg/dL Calcium 9.1 (8.5-10.1) mg/dL C-Reactive Protein 2.86 H (0.0-0.3) mg/dL 01/07/19 01/07/19 Range/Units 04:27 04:27 WBC 9.1 (4.5-11.0) K/uL RBC 4.26 (3.30-5.50) M/uL Hgb 12.0 (12.0-15.0) g/dL Hct 41.0 (36.0-48.0) % MCV 96 (80-98) fL MCH 28 (27-31) pg MCHC 29 L (32-36) % Plt Count 172 (150-400) K/uL Neut % (Auto) (36-66) % Lymph % (Auto) (24-44) % [place] % (Auto) (2-6) % Eos % (Auto) (2-4) % Baso % (Auto) (0-1) % Sodium 144 (140-148) mmol/L Potassium 4.4 (3.6-5.2) mmol/L Chloride 105 (100-108) mmol/L Carbon Dioxide 33 H (21-32) mmol/L Anion Gap 10.4 (5.0-14.0) mmol/L BUN 8 (7-18) mg/dL Creatinine 0.7 (0.6-1.0) mg/dL Est Cr Clr Drug Dosing 72.08 mL/min Estimated GFR (MDRD) > 60 (>60) Glucose 142 H (74-106) mg/dL Calcium 8.8 (8.5-10.1) mg/dL C-Reactive Protein (0.0-0.3) mg/dL [place] Results Last 24 Hours: Microbiology 01/06/19 14:04 Gram Stain - Final Lip Med Orders - Current: Current Medications Acetaminophen (Tylenol) 650 mg PO Q4H PRN PRN Reason: Pain (Mild 1-3)/fever Hydrocodone Bitart/Acetaminophen (Cypress 325-10 Mg) 1 tab PO Q4H PRN PRN Reason: pain Last Admin: 01/07/19 04:20 Dose: 1 tab Albuterol (Proventil Neb Soln) 2.5 mg INH QIDRT [facility] Last Admin: 01/07/19 07:21 Dose: 2.5 mg Albuterol (Proventil Neb Soln) 2.5 mg NEB Q4H PRN PRN Reason: Shortness Of Breath/wheezing Last Admin: 01/06/19 18:22 Dose: 2.5 mg Aspirin (Halfprin) 81 mg PO DAILY [facility] Last Admin: 01/07/19 08:44 Dose: 81 mg Atorvastatin Calcium (Lipitor) 80 mg PO BEDTIME [facility] Last Admin: 01/06/19 21:04 Dose: 80 mg Clopidogrel Bisulfate (Plavix) 75 mg PO DAILY [facility] Last Admin: 01/07/19 08:44 Dose: 75 mg Glycopyrrolate (Seebri Neohaler) 0 mcg IH BIDRT [facility] Last Admin: 01/07/19 08:12 Dose: 1 inhalation Hydromorphone HCl (Dilaudid) 0.5 mg IVPUSH Q2H PRN PRN Reason: SEVERE PAIN (7-10) Piperacillin/Tazobactam/ (Dextrose 3.375 gm/ Premix) 50 mls @ 100 mls/hr IV Q6H [facility] Last Admin: 01/07/19 07:53 Dose: 100 mls/hr Sodium Chloride (Normal Saline) 1,000 mls @ 75 mls/hr IV ASDIRECTED [facility] Last Admin: 01/07/19 07:52 Dose: 75 mls/hr Lactobacillus Rhamnosus (Culturelle) 1 cap PO BID [facility] Last Admin: 01/07/19 08:44 Dose: 1 cap Magnesium Hydroxide (Milk Of Magnesia) 30 ml PO Q12H PRN PRN Reason: Constipation Metoprolol Tartrate (Lopressor) 50 mg PO BID [facility] Last Admin: 01/07/19 08:44 Dose: 50 mg Mirtazapine (Remeron) 30 mg PO BEDTIME [facility] Last Admin: 01/06/19 21:04 Dose: 30 mg Nystatin (Mycostatin) 5 ml PO QID [facility] Ondansetron HCl (Zofran Odt) 4 mg PO Q6H PRN PRN Reason: Nausea able to take PO Ondansetron HCl (Zofran) 4 mg IV Q6H PRN PRN Reason: Nausea/Vomiting Fluticasone/Salmeterol (Fluticasone-Salmeterol 232-14 Mcg Powder Inha) 0 puff INH BIDRT [facility] Last Admin: 01/07/19 07:21 Dose: 1 puff Senna/Docusate Sodium (Senna Plus) 1 tab PO BID PRN PRN Reason: Constipation Tizanidine HCl (Zanaflex) 4 mg PO Q8H PRN PRN Reason: MUSCLE SPASM Last Admin: 01/06/19 20:16 Dose: 4 mg Discontinued Medications Hydrocodone Bitart/Acetaminophen (Cypress 325-10 Mg) 1 tab PO ONETIME ONE Stop: 01/06/19 13:41 Last Admin: 01/06/19 13:46 Dose: 1 tab Albuterol/Ipratropium (Duoneb 3.0-0.5 Mg/3 Ml) 3 ml NEB ONETIME ONE Stop: 01/06/19 14:28 Last Admin: 01/06/19 14:30 Dose: 3 ml Albuterol/Ipratropium (Duoneb 3.0-0.5 Mg/3 Ml) Confirm Administered Dose 3 ml .ROUTE .STK-MED ONE Stop: 01/06/19 14:29 Last Admin: 01/06/19 15:23 Dose: Not Given Bupivacaine HCl/Epinephrine Bitart (Marcaine 0.5%/Epinephrine 1:200,000) 1.8 ml INJECT ONETIME ONE Stop: 01/06/19 13:39 Last Admin: 01/06/19 13:51 Dose: 1.8 ml Piperacillin Sod/Tazobactam (Sod 4.5 gm/ Sodium Chloride) 100 mls @ 100 mls/hr IV ONETIME ONE Stop: 01/06/19 13:47 Last Admin: 01/06/19 13:12 Dose: 100 mls/hr Methylprednisolone Sodium Succinate (Solu-Medrol) 125 mg IVPUSH ONETIME ONE Stop: 01/06/19 14:28 Last Admin: 01/06/19 14:36 Dose: 125 mg - Exam Quality Assessment: Supplemental Oxygen General: Alert, Oriented, Cooperative, No Acute Distress HEENT: Other (moderate swelling of left upper lip ) Lungs: Normal Respiratory Effort GI/Abdominal Exam: Soft, No Distention Extremities: No Pedal Edema Skin: Rash (erythema on upper lip and extending to chin (improved)) Psy/Mental Status: Alert, Normal Affect - Problem List Review Problem List Initiated/Reviewed/Updated: Yes - My Orders Last 24 Hours: My Active Orders 01/06/19 13:45 Resuscitation Status Routine 01/06/19 15:30 Patient Status [ADT] Routine Antiembolic Devices [RC] .Routine Intake and Output [RC] .PRN Notify Provider Vital Signs [RC] ASDIRECTED Oxygen Therapy [RC] PRN RT Aerosol Therapy [RC] ASDIRECTED Up With Assistance [RC] ASDIRECTED Vital Signs [RC] Q4H Acetaminophen [Tylenol] 650 mg PO Q4H PRN Acetaminophen/HYDROcodone [Cypress 325-10 MG] 1 tab PO Q4H PRN Albuterol [Proventil Neb Soln] 2.5 mg INH QIDRT Albuterol [Proventil Neb Soln] 2.5 mg NEB Q4H PRN Docusate Sodium/Sennosides [Senna Plus] 1 tab PO BID PRN Magnesium Hydroxide [Milk of Magnesia] 30 ml PO Q12H PRN Ondansetron [Zofran ODT] 4 mg PO Q6H PRN Ondansetron [Zofran] 4 mg IV Q6H PRN Sodium Chloride 0.9% [Normal Saline] 1,000 ml IV ASDIRECTED Antiembolic Hose [OM.PC] Routine 01/06/19 15:42 tiZANidine [Zanaflex] 4 mg PO Q8H PRN 01/06/19 15:45 HYDROmorphone [Dilaudid] 0.5 mg IVPUSH Q2H PRN 01/06/19 16:30 Aspirin [Halfprin] 81 mg PO DAILY Clopidogrel [Plavix] 75 mg PO DAILY 01/06/19 20:00 Piperacillin/Tazobactam/Dext [Zosyn in Dextrose Iso-Osmotic 3.375 GM] 3.375 gm Premix Bag 1 bag IV Q6H 01/06/19 21:00 Fluticasone/Salmeterol [Fluticasone-Salmeterol 232-14 MCG Powder Inha] 0 puff INH BIDRT Lactobacillus Rhamnosus GG [Culturelle] 1 cap PO BID Metoprolol Tartrate [Lopressor] 50 mg PO BID Mirtazapine [Remeron] 30 mg PO BEDTIME atorvaSTATin [Lipitor] 80 mg PO BEDTIME 01/06/19 Dinner Regular Diet [DIET] 01/07/19 09:00 Glycopyrrolate [Seebri Neohaler] 0 mcg IH BIDRT 01/07/19 10:00 Nystatin [Mycostatin] 5 ml PO QID - Plan Plan:: ASSESSMENT AND PLAN - Left upper lip abscess and cellulitis - fairly rapid progression, failed outpatient management. Clinically doing better with antibiotics initiated here in the hospital. Still has moderate swelling and some facial cellulitis. Cultures are pending. -Pip/Tazo -Pain control -Follow-up cultures Severe COPD - oxygen dependent at baseline. Symptoms are stable. -Continue home medications -Continue oxygen supplementation Maintenance issues - - DVT prophylaxis - mechanical - GI prophylaxis - not indicated - Nutrition - regular Disposition - I would anticipate discharge home after the hospital stay Primary care physician - Michelle Morales M.D.
[2019-01-07] MEDS: Nystatin Susp 100,000 Unit/ML 5 ML UD Cup PO SCH ×3 (10:43→22:48)
[2019-01-07] MEDS ORDERED: Sodium Chloride 0.9% 1,000 ML IV SCH (11:30)
[2019-01-07] MEDS: atorvaSTATin 20 MG Tab PO SCH (20:16)
[2019-01-07] MEDS: Mirtazapine 15 MG Tab PO SCH (20:25)
[2019-01-07] MEDS: LORazepam 2 MG/ML SDV IVPUSH PRN (20:51)
[2019-01-08] MEDS: Piperacillin/Tazobactam/Dext 3.375 GM in Premix Bag 1 BAG IV SCH ×2 (02:29→07:30)
[2019-01-08] MEDS: Albuterol 0.083% 2.5 MG/3 ML Neb Soln NEB PRN (02:41)
[2019-01-08] MEDS: LORazepam 2 MG/ML SDV IVPUSH PRN (02:43)
[2019-01-08] MEDS: Nystatin Susp 100,000 Unit/ML 5 ML UD Cup PO SCH ×2 (06:54→09:24)
[2019-01-08] MEDS: Albuterol 0.083% 2.5 MG/3 ML Neb Soln INH SCH ×2 (07:12→10:58)
[2019-01-08] MEDS: Fluticasone-Salmeterol 232-14 MCG Powder Inhalent INH SCH (07:12)
[2019-01-08] MEDS: Glycopyrrolate 15.6 MCG Cap.W.Dev Kit of 6 IH SCH (09:05)
[2019-01-08] MEDS: Metoprolol Tartrate 50 MG Tab PO SCH (09:23)
[2019-01-08] MEDS: Aspirin 81 MG Tab.EC PO SCH (09:23)
[2019-01-08] MEDS: Lactobacillus Rhamnosus GG (Probiotic) Cap PO SCH (09:24)
[2019-01-08] MEDS: Clopidogrel 75 MG Tab PO SCH (09:24)
--- NOTE | 2019-01-08 09:44 | PCM.DCSUM1 ---
Discharge Summary - Hospital Course Brief History: 59 yr old female with a hx of severe oxygen dependent COPD and peripheral vascular disease who presented with progressive swelling and erythema involving her left upper lip. She was admitted for management of a left upper lip abscess with cellulitis that was worsening despite outpatient antibiotics. Diagnosis: Stroke: No - Discharge Data Discharge Date: 01/08/19 Discharge Disposition: Home, Self-Care 01 Condition: Good - Discharge Diagnosis/Problem(s) (1) Abscess of lip SNOMED Code(s): 64287363 ICD Code: K13.0 - DISEASES OF LIPS Status: Acute Current Visit: Yes (2) Cellulitis of face SNOMED Code(s): 141844845 ICD Code: L03.211 - CELLULITIS OF FACE Status: Acute Current Visit: Yes (3) COPD (chronic obstructive pulmonary disease) SNOMED Code(s): 73030812 ICD Code: J44.9 - CHRONIC OBSTRUCTIVE PULMONARY DISEASE, UNSPECIFIED Status : Chronic Current Visit: Yes Qualifiers: COPD type: unspecified COPD Qualified Code(s): J44.9 - Chronic obstructive pulmonary disease, unspecified - Patient Summary/Data Hospital Course: Emily presented to the emergency room with progressive lip pain, swelling and erythema on the left side. She had been seen in the clinic the day before and an attempt at incision and drainage was made but no purulent material was expressed. The patient was started on antibiotics and sent home. Despite the interventions the day prior her lip had progressively more intense pain with significant increase in swelling and development of erythema that spreads down into the left jaw area. Laboratory studies showed a mild elevation of the white blood cell count but were otherwise unremarkable. The area of concern was ultrasounded in the emergency room and an abscess was identified. This was treated with incision and debridement in the emergency room and a culture was obtained. The patient was started on Pip/Tazo for antibiotic coverage with dental microbes seeming to be the most likely potential culprits. Overnight following admission there were no acute issues. White blood cell count had trended down the next day. Swelling and erythema had improved. Culture still pending at this point. The same antibiotics were continued along with pain control for additional 24 hours. On the morning of discharge her culture has returned with strep viridans. She has shown very good improvements using the above-mentioned antibiotic. She has mild residual swelling but the erythema has resolved. I believe she is safe to transition to oral antibiotics at this time. Pain control has been adequate so far. She'll be discharged home with additional outpatient antibiotics in the form of Augmentin. She should follow- up early next week. - Patient Instructions Diet: Regular Diet as Tolerated Activity: As Tolerated Showering/Bathing: May Shower Notify Provider of: Fever, Increased Pain Other/Special Instructions: 1. You were in the hospital for management of cellulitis and abscess involving her left upper lip and face. Your condition has been improving with antibiotic therapy. Your culture from the abscess drainage grew out a bacteria called Streptococcus viridans. I recommend 6 additional days of antibiotic therapy with Augmentin. You will receive a dose this afternoon before discharging. Your first dose at home will be due tonight. 2. To help with the thrush in your mouth I recommend nystatin liquid. You should take 5 mL of this 4 times daily and swirl around in your mouth for 20 seconds. You may then spit it out. 3. Continue your other home medications as previously prescribed. 4. Seek medical attention if you have fever greater than 101, severe shortness of breath or if you have increasing redness, pain or swelling in your left upper lip area - Discharge Plan *PRESCRIPTION DRUG MONITORING PROGRAM REVIEWED*: Not Applicable *COPY OF PRESCRIPTION DRUG MONITORING REPORT IN PATIENT NICHOLE: Not Applicable Prescriptions/Med Rec: Amoxicillin/Clavulanate K [Augmentin 875-125 MG] 1 tab PO BID #11 tablet Nystatin 500,000 unit PO QID #80 ml Home Medications: Home Meds Albuterol Sulfate [Proair Hfa] 2 puff INH QID 10/12/14 [History] Albuterol [Proventil Neb Soln] 1 vial INH QID PRN 10/12/14 [History] Aspirin [Halfprin] 81 mg PO DAILY 10/12/14 [History] Budesonide/Formoterol [Symbicort 160-4.5 MCG] 2 puff INH BID 10/12/14 [History] Cholecalciferol (Vitamin D3) [Vitamin D3] 1 cap PO DAILY 10/12/14 [History] Clopidogrel [Plavix] 75 mg PO DAILY 10/12/14 [History] Mirtazapine [Remeron] 30 mg PO BEDTIME 10/12/14 [History] Nitroglycerin [Nitrostat] 1 tab SL ASDIRECTED 10/12/14 [History] Tiotropium [Spiriva HandiHaler] 18 mcg INH DAILY 10/12/14 [History] tiZANidine HCl [Zanaflex] 4 mg PO Q8H PRN 10/12/14 [History] atorvaSTATin [Lipitor] 80 mg PO BEDTIME 09/20/17 [History] Clindamycin HCl 300 mg PO Q6HR 01/06/19 [History] Hydrocodone/Acetaminophen [Hydrocodon-Acetaminophn 10-325] 1 tab PO Q4H PRN [History] Metoprolol Tartrate 50 mg PO BID 01/06/19 [History] Amoxicillin/Clavulanate K [Augmentin 875-125 MG] 1 tab PO BID #11 tablet [Rx] Nystatin 500,000 unit PO QID #80 ml 01/08/19 [Rx] Oxygen Therapy Mode: Nasal Cannula Oxygen Flow Rate (L/min): 2 Patient Handouts: Chronic Obstructive Pulmonary Disease Exacerbation, Easy-to- Read, Cellulitis, Adult, Chronic Obstructive Pulmonary Disease, [id number] Referrals: Michelle Carmen MD [Primary Care Provider] - 01/13/19 1:30 pm (Please arrive 15 minutes ealry to register for your appointment. Appointment is at the [facility]) - Discharge Summary/Plan Comment DC Time >30 min.: No - Patient Data Vitals - Most Recent: Last Vital Signs Temp 36.0 C 01/08/19 06:44 Pulse 74 01/08/19 09:23 Resp 18 01/08/19 06:44 BP 129/53 L 01/08/19 09:23 Pulse Ox 96 01/08/19 06:44 Weight - Most Recent: 54.1 kg I&O - Last 24 hours: Intake & Output 01/07/19 01/08/19 01/08/19 22:59 06:59 14:59 Intake Total 690 377 50 Output Total 300 400 Balance 390 -23 50 GIANLUCA Results - Last 24 hrs: Microbiology 01/06/19 14:04 Gram Stain - Final Lip Wound Culture - Preliminary Viridans Streptococcus Viridans Streptococcus#2 Med Orders - Current: Current Medications Acetaminophen (Tylenol) 650 mg PO Q4H PRN PRN Reason: Pain (Mild 1-3)/fever Hydrocodone Bitart/Acetaminophen ([place] 325-10 Mg) 1 tab PO Q4H PRN PRN Reason: pain Last Admin: 01/07/19 19:44 Dose: 1 tab Albuterol (Proventil Neb Soln) 2.5 mg INH QIDRT [facility] Last Admin: 01/08/19 07:12 Dose: 2.5 mg Albuterol (Proventil Neb Soln) 2.5 mg NEB Q4H PRN PRN Reason: Shortness Of Breath/wheezing Last Admin: 01/08/19 02:41 Dose: 2.5 mg Aspirin (Halfprin) 81 mg PO DAILY [facility] Last Admin: 01/08/19 09:23 Dose: 81 mg Atorvastatin Calcium (Lipitor) 80 mg PO BEDTIME [facility] Last Admin: 01/07/19 20:16 Dose: 80 mg Clopidogrel Bisulfate (Plavix) 75 mg PO DAILY [facility] Last Admin: 01/08/19 09:24 Dose: 75 mg Glycopyrrolate (Seebri Neohaler) 0 mcg IH BIDRT [facility] Last Admin: 01/08/19 09:05 Dose: 1 inhalation Hydromorphone HCl (Dilaudid) 0.5 mg IVPUSH Q2H PRN PRN Reason: SEVERE PAIN (7-10) Sodium Chloride (Normal Saline) 1,000 mls @ 25 mls/hr IV ASDIRECTED [facility] Lactobacillus Rhamnosus (Culturelle) 1 cap PO BID [facility] Last Admin: 01/08/19 09:24 Dose: 1 cap Lorazepam (Ativan) 0.5 mg IVPUSH Q4H PRN PRN Reason: Anxiety Last Admin: 01/08/19 02:43 Dose: 0.5 mg Magnesium Hydroxide (Milk Of Magnesia) 30 ml PO Q12H PRN PRN Reason: Constipation Metoprolol Tartrate (Lopressor) 50 mg PO BID [facility] Last Admin: 01/08/19 09:23 Dose: 50 mg Mirtazapine (Remeron) 30 mg PO BEDTIME [facility] Last Admin: 01/07/19 20:25 Dose: 30 mg Nystatin (Mycostatin) 5 ml PO QID [facility] Last Admin: 01/08/19 09:24 Dose: 5 ml Ondansetron HCl (Zofran Odt) 4 mg PO Q6H PRN PRN Reason: Nausea able to take PO Ondansetron HCl (Zofran) 4 mg IV Q6H PRN PRN Reason: Nausea/Vomiting Fluticasone/Salmeterol (Fluticasone-Salmeterol 232-14 Mcg Powder Inha) 0 puff INH BIDRT [facility] Last Admin: 01/08/19 07:12 Dose: 1 puff Senna/Docusate Sodium (Senna Plus) 1 tab PO BID PRN PRN Reason: Constipation Tizanidine HCl (Zanaflex) 4 mg PO Q8H PRN PRN Reason: MUSCLE SPASM Last Admin: 01/06/19 20:16 Dose: 4 mg Discontinued Medications Hydrocodone Bitart/Acetaminophen ([place] 325-10 Mg) 1 tab PO ONETIME ONE Stop: 01/06/19 13:41 Last Admin: 01/06/19 13:46 Dose: 1 tab Albuterol/Ipratropium (Duoneb 3.0-0.5 Mg/3 Ml) 3 ml NEB ONETIME ONE Stop: 01/06/19 14:28 Last Admin: 01/06/19 14:30 Dose: 3 ml Albuterol/Ipratropium (Duoneb 3.0-0.5 Mg/3 Ml) Confirm Administered Dose 3 ml .ROUTE .STK-MED ONE Stop: 01/06/19 14:29 Last Admin: 01/06/19 15:23 Dose: Not Given Bupivacaine HCl/Epinephrine Bitart (Marcaine 0.5%/Epinephrine 1:200,000) 1.8 ml INJECT ONETIME ONE Stop: 01/06/19 13:39 Last Admin: 01/06/19 13:51 Dose: 1.8 ml Piperacillin Sod/Tazobactam (Sod 4.5 gm/ Sodium Chloride) 100 mls @ 100 mls/hr IV ONETIME ONE Stop: 01/06/19 13:47 Last Admin: 01/06/19 13:12 Dose: 100 mls/hr Piperacillin/Tazobactam/ (Dextrose 3.375 gm/ Premix) 50 mls @ 100 mls/hr IV Q6H [facility] Last Admin: 01/08/19 07:30 Dose: 100 mls/hr Sodium Chloride (Normal Saline) 1,000 mls @ 75 mls/hr IV ASDIRECTED [facility] Last Infusion: 01/07/19 10:15 Dose: 25 mls/hr Methylprednisolone Sodium Succinate (Solu-Medrol) 125 mg IVPUSH ONETIME ONE Stop: 01/06/19 14:28 Last Admin: 01/06/19 14:36 Dose: 125 mg - Exam Quality Assessment: Reports: Supplemental Oxygen General: Reports: Alert, Oriented, Cooperative, No Acute Distress HEENT: Reports: Other (minimal swelling left upper lip. no facial erythema ) Lungs: Reports: Normal Respiratory Effort GI/Abdominal Exam: Soft, No Distention Extremities: No Pedal Edema Psy/Mental Status: Reports: Alert, Anxious
[2019-01-08 10:22] VITALS: BP 134/69
[2019-01-08 10:59] VITALS: PULSE 76
[2019-01-08] MEDS ORDERED: Amoxicillin/Clavulanate K 875-125 MG Tab PO ONE (12:00)
== END 2019-01-08 12:30 | disposition home or self-care (01) | DRG 158 ==
LOC: JP.ED 11:48 → JP.MS 13:43 → UNDOADMIN 13:43 → JP.MS 15:30 → UNDODISIN 01-08 12:30
PROVIDERS: ADMIT Internal Medicine; ATTEND Internal Medicine
PROC: 0C90XZX Drainage of Upper Lip, External Approach, Diagnostic (ICD-10-PCS; principal; 2019-01-06)
DX: K13.0 Diseases of lips (principal); L03.211 Cellulitis of face; B37.0 Candidal stomatitis; Z87.891 Personal history of nicotine dependence; B95.4 Other streptococcus as the cause of diseases classified elsewhere; J44.9 Chronic obstructive pulmonary disease, unspecified; Z99.81 Dependence on supplemental oxygen; F32.9 Major depressive disorder, single episode, unspecified; I73.9 Peripheral vascular disease, unspecified; I25.2 Old myocardial infarction; H54.7 Unspecified visual loss; Z85.118 Personal history of other malignant neoplasm of bronchus and lung; Z79.82 Long term (current) use of aspirin; Z79.51 Long term (current) use of inhaled steroids
CPT/HCPCS: 36415; 40800 ×2; 76536; 80048; 85025; 96365; 99284 ×2; J2543; J7030; 85027; 86140; 87070; 87077; 87205; 94640; A9270-GY; J2060; J2930; J3490; J7620-GY

== ENCOUNTER 2019-03-05 07:13 | Day surgery (SDC) | payer MEDICARE, MEDICAID ==
[2019-03-05] MEDS ORDERED: Sodium Chloride 0.9% 1,000 ML IV SCH (07:30)
[2019-03-05] MEDS ORDERED: fentaNYL 100 MCG/2 ML SDV ONE (07:41)
[2019-03-05] MEDS ORDERED: Propofol 200 MG/20 ML SDV ONE (07:41)
[2019-03-05] MEDS ORDERED: Midazolam 1 MG/ML 2 ML SDV ONE (07:41)
[2019-03-05 11:04] VITALS: BP 123/64; PULSE 78
--- NOTE | 2019-03-05 13:14 | OR ---
DATE OF PROCEDURE: 03/05/2019 SURGEON: Moise Ansari MD PROCEDURE: Colonoscopy. FINDINGS: Sigmoid colon polyp, approximately 5 mm, completely removed using snare. COMPLICATIONS: None. CONNIE SCRATCHER: None. PREOPERATIVE DIAGNOSIS: Screening colonoscopy. POSTOPERATIVE DIAGNOSIS: Screening colonoscopy. RISKS: Risks, benefits, alternatives, limitations including, but not limited to infection, bleeding, and perforation were explained to the patient, who wished to proceed. PROCEDURE IN DETAIL: The patient was placed in left lateral decubitus position. Digital rectal exam was performed without abnormality. Scope was introduced and advanced atraumatically to the ileocecal valve. The scope was brought back through the ascending, transverse, descending colon, and retroflexed. No evidence of old or new blood. No other masses. Prep was moderately acceptable. There were a few diverticula without evidence of bleeding. No abnormalities on retroflexion. The patient tolerated the procedure well. Moise Ansari MD /[id number]
== END 2019-03-05 11:07 | disposition home or self-care (01) ==
LOC: JP.SDS 07:13
PROVIDERS: ATTEND Surgery
DX: Z12.11 Encounter for screening for malignant neoplasm of colon (principal); K63.5 Polyp of colon; K57.30 Diverticulosis of large intestine without perforation or abscess without bleeding; I10 Essential (primary) hypertension; C34.90 Malignant neoplasm of unspecified part of unspecified bronchus or lung; J44.9 Chronic obstructive pulmonary disease, unspecified; F41.9 Anxiety disorder, unspecified
CPT/HCPCS: 45385; J2250; J2704; J3010; J7030; 88305

== ENCOUNTER 2019-04-04 16:57 | Emergency (ER) | payer MEDICARE, MEDICAID ==
[2019-04-04 17:40] VITALS: BP 143/76; PULSE 89
[2019-04-04] MEDS ORDERED: FLU Vacc QS2019-20(6MOS+)/PF 60 MCG/0.5 ML SYRINGE IM ONE (18:00)
[2019-04-04] MEDS ORDERED: Albuterol/Ipratropium 3.0-0.5 MG/3 ML Neb Soln NEB ONE (18:19)
--- NOTE | 2019-04-04 18:24 | EDM.PDOC ---
ED HPI GENERAL MEDICAL PROBLEM - General Chief Complaint: Respiratory Problem Stated Complaint: SOB Time Seen by Provider: 04/04/19 17:50 Source of Information: Reports: Patient, Family History Limitations: Reports: No Limitations - History of Present Illness INITIAL COMMENTS - FREE TEXT/NARRATIVE: 59 yo COPD oxygen dependent pt presents to ER with complaint of increase in SOB , productive cough and decreased energy. cough has been present for 2 weeks. - Related Data Allergies Allergy/AdvReac Type Severity Reaction Status Date / Time cefazolin Allergy Itching Verified 04/04/19 17:28 cephalexin Allergy Itching Verified 04/04/19 17:28 paroxetine Allergy Itching Verified 04/04/19 17:28 roflumilast [From Daliresp] Allergy Other Verified 04/04/19 17:28 Home Meds: Home Meds Albuterol Sulfate [Proair Hfa] 2 puff INH QID 10/12/14 [History] Albuterol [Proventil Neb Soln] 1 vial INH QID PRN 10/12/14 [History] Aspirin [Halfprin] 81 mg PO DAILY 10/12/14 [History] Cholecalciferol (Vitamin D3) [Vitamin D3] 1,000 unit PO DAILY 10/12/14 [History] Clopidogrel [Plavix] 75 mg PO DAILY 10/12/14 [History] Mirtazapine [Remeron] 30 mg PO BEDTIME 10/12/14 [History] Nitroglycerin [Nitrostat] 1 tab SL ASDIRECTED 10/12/14 [History] Tiotropium [Spiriva HandiHaler] 18 mcg INH DAILY 10/12/14 [History] tiZANidine HCl [Zanaflex] 4 mg PO Q8H PRN 10/12/14 [History] atorvaSTATin [Lipitor] 80 mg PO BEDTIME 09/20/17 [History] Metoprolol Tartrate 50 mg PO BID 01/06/19 [History] Budesonide/Formoterol [Symbicort 160-4.5 MCG] 2 puff INH BID 03/02/19 [History] Past Medical History HEENT History: Reports: Impaired Vision Cardiovascular History: Reports: CT, SOB on Exertion Respiratory History: Reports: COPD, Other (See Below) Other Respiratory History: lung cancer 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: , 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 , Other (See Below) Other COMMUNITY OUTREACH 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 History: c sections x3 Psychiatric History: Reports: Depression Oncologic (Cancer) History: Reports: Lung Other Oncologic History: tumor right leg x3 Dermatologic History: Reports: Cellulitis - Infectious Disease History Infectious Disease History: Reports: Chicken Pox - Past Surgical History HEENT Surgical History: Reports: Oral Surgery, Tonsillectomy Cardiovascular Surgical History: Reports: Other (See Below) Other Cardiovascular Surgeries/Procedures: angiogram GI Surgical History: Reports: Colonoscopy, Other (See Below) Other GI Surgeries/Procedures: polyps Other Neurological Surgeries/Procedures: cervical spine surgery Musculoskeletal Surgical History: Reports: Other (See Below) Other Musculoskeletal Surgeries/Procedures:: neck Social & Family History - Family History Cardiac: Reports: CAD - Tobacco Use Smoking Status *Q: Never Smoker - Caffeine Use Caffeine Use: Reports: None ED ROS GENERAL - Review of Systems Review Of Systems: See Below Constitutional: Reports: Chills, Fatigue. Denies: Fever HEENT: Reports: Rhinitis Respiratory: Reports: Shortness of Breath, Cough, Sputum Cardiovascular: Denies: Chest Pain GI/Abdominal: Denies: Abdominal Pain, Constipation, Diarrhea Skin: Denies: Rash ED EXAM, GENERAL - Physical Exam Exam: See Below Exam Limited By: No Limitations General Appearance: Alert, WD/WN, No Apparent Distress Neck: Normal Inspection, Supple, Non-Tender, Full Range of Motion. No: Lymphadenopathy (R), Lymphadenopathy (L) Respiratory/Chest: Decreased Breath Sounds, Other (mild resp distress, pursed lips breathing) Cardiovascular: Regular Rate, Rhythm, No Edema GI/Abdominal: Soft, Non-Tender Course - Vital Signs Last Recorded V/S: Last Vital Signs Temp 37.4 C 04/04/19 17:38 Pulse 89 04/04/19 17:38 Resp 16 04/04/19 17:38 BP 143/76 H 04/04/19 17:38 Pulse Ox 92 L 04/04/19 17:38 - Orders/Labs/Meds Orders: Active Orders 24 hr Category Date Time Status Influenza Vaccine Charge [RC] .DISCHARGE Care 04/04/19 17:34 Active RT Aerosol Therapy [RC] ASDIRECTED Care 04/04/19 18:19 Active Labs: Laboratory Tests 04/04/19 04/04/19 04/04/19 Range/Units 18:18 18:18 18:18 WBC 10.2 (4.5-11.0) K/uL RBC 4.31 (3.30-5.50) M/uL Hgb 12.3 (12.0-15.0) g/dL Hct 40.7 (36.0-48.0) % MCV 94 (80-98) fL MCH 29 (27-31) pg MCHC 30 L (32-36) % Plt Count 189 (150-400) K/uL Neut % (Auto) 80 H (36-66) % Lymph % (Auto) 8 L (24-44) % [place] % (Auto) 10 H (2-6) % Eos % (Auto) 2 (2-4) % Baso % (Auto) 0 (0-1) % Sodium 145 (140-148) mmol/L Potassium 3.9 (3.6-5.2) mmol/L Chloride 104 (100-108) mmol/L Carbon Dioxide 35 H (21-32) mmol/L Anion Gap 9.9 (5.0-14.0) mmol/L BUN 17 D (7-18) mg/dL Creatinine 0.7 (0.6-1.0) mg/dL Est Cr Clr Drug Dosing 68.89 mL/min Estimated GFR (MDRD) > 60 (>60) Glucose 137 H (74-106) mg/dL Calcium 8.7 (8.5-10.1) mg/dL Total Bilirubin 0.4 (0.2-1.0) mg/dL AST 19 (15-37) U/L ALT 25 (12-78) U/L Alkaline Phosphatase 71 (46-116) U/L C-Reactive Protein 6.81 H (0.0-0.3) mg/dL Total Protein 7.2 (6.4-8.2) g/dL Albumin 3.4 (3.4-5.0) g/dL Globulin 3.8 H (2.3-3.5) g/dL Albumin/Globulin Ratio 0.9 L (1.2-2.2) Meds: Medications Discontinued Medications Generic Name Dose Route Start Last Admin Trade Name Freq PRN Reason Stop Dose Admin Albuterol/Ipratropium 3 ml 04/04/19 18:19 04/04/19 18:31 Duoneb 3.0-0.5 Mg/3 Ml NEB 04/04/19 18:20 3 ml ONETIME ONE Administration Influenza Virus Vaccine 1 each 04/04/19 17:33 Pharmacy To Dose - Influenza Vaccine IM 04/04/19 17:34 ONETIME ONE Influenza Virus Vaccine 60 mcg 04/04/19 18:00 04/04/19 18:05 Fluzone Quad [id number] Syringe IM 04/04/19 18:01 60 mcg .ONCE ONE Administration Departure - Departure Time of Disposition: 19:01 Disposition: Home, Self-Care 01 Condition: Fair Clinical Impression: COPD (chronic obstructive pulmonary disease) Qualifiers: COPD type: COPD with acute exacerbation Qualified Code(s): J44.1 - Chronic obstructive pulmonary disease with (acute) exacerbation - Discharge Information *PRESCRIPTION DRUG MONITORING PROGRAM REVIEWED*: Not Applicable *COPY OF PRESCRIPTION DRUG MONITORING REPORT IN PATIENT NICHOLE: Not Applicable Instructions: Chronic Bronchitis Referrals: Michelle Carmen MD [Primary Care Provider] - Forms: ED Department Discharge Additional Instructions: doxycycline 100 mg twice daily for 14 days prednisone 10 mg tablet taper dosin tablets for 3 days, 4 tablets for 4 days , 2 tablet for 7 days, 1 tablet 7 days increase caloric intake goal of eating 300-500 calories every 3 hours while awake follow-up with primary care provider this week return to emergency room with increase in shortness of breath, or fever - My Orders Last 24 Hours: My Active Orders 04/04/19 17:34 Influenza Vaccine Charge [RC] .DISCHARGE 04/04/19 18:19 RT Aerosol Therapy [RC] ASDIRECTED - Assessment/Plan Last 24 Hours: My Active Orders 04/04/19 17:34 Influenza Vaccine Charge [RC] .DISCHARGE 04/04/19 18:19 RT Aerosol Therapy [RC] ASDIRECTED
--- NOTE | 2019-04-04 18:58 | CRLCR ---
INDICATION: Shortness of breath TECHNIQUE: Chest 2 views COMPARISON: Chest x-ray 09/20/2017 FINDINGS: Cardiovascular and mediastinum: Normal heart size with atherosclerotic calcification. Lungs and pleural spaces: Hyperinflated chest with attenuation of the vasculature. Some bronchial wall thickening with slight increased density along the minor fissure at the anterior segment of the right upper lobe. Bones and soft tissues: Status post cervical spine surgery. IMPRESSION: 1. Hyperinflated chest consistent with underlying emphysema with slight density along the anterior segment of the right upper lobe consistent with atelectasis or pneumonia. Dictated by Emmett Pritchard MD @ Apr 04 2019 6:53PM Signed by Dr. Emmett Pritchard @ Apr 04 2019 6:55PM
== END 2019-04-04 19:17 | disposition home or self-care (01) ==
LOC: JP.ED 16:57
DX: J44.1 Chronic obstructive pulmonary disease with (acute) exacerbation (principal); I25.2 Old myocardial infarction; J44.9 Chronic obstructive pulmonary disease, unspecified; F32.9 Major depressive disorder, single episode, unspecified; Z88.1 Allergy status to other antibiotic agents; Z88.8 Allergy status to other drugs, medicaments and biological substances; Z79.51 Long term (current) use of inhaled steroids; Z79.899 Other long term (current) drug therapy; Z79.82 Long term (current) use of aspirin; Z79.01 Long term (current) use of anticoagulants
CPT/HCPCS: 36415; 71046; 80053; 85025; 86140; 90686; 94640; 99285; G0008; 99283; J7620-GY

== ENCOUNTER 2019-07-24 05:08 | Inpatient (IN) | payer MEDICARE, MEDICAID ==
[2019-07-24] MEDS ORDERED: methylPREDNISolone Sodium Succinate 125 MG/2 ML SDV IVPUSH ONE (05:24)
[2019-07-24] MEDS: Sodium Chloride 0.9% 10 ML Syringe FLUSH PRN ×2 (05:37→06:02)
[2019-07-24] MEDS ORDERED: LORazepam 2 MG/ML SDV IVPUSH ONE ×2 (05:57→06:41)
--- NOTE | 2019-07-24 06:10 | CRLCR ---
Indication: Dyspnea with cough and wheezing Technique: Chest 1 view Comparison: April 04, 2019 Findings/Impression: Normal cardiac size. Hyperexpanded lungs. No focal infiltrate, effusion, or pneumothorax. Surgical hardware projects over lower cervical spine. Dictated by Michelle Cee MD @ Jul 24 2019 6:07AM Signed by Dr. Michelle Cee @ Jul 24 2019 6:08AM
--- NOTE | 2019-07-24 06:39 | EDM.PDOC ---
ED HPI GENERAL MEDICAL PROBLEM - General Chief Complaint: Respiratory Problem Stated Complaint: [facility] Time Seen by Provider: 07/24/19 05:20 Source of Information: Reports: Patient History Limitations: Reports: Altered Mental Status, Respiratory Distress - History of Present Illness INITIAL COMMENTS - FREE TEXT/NARRATIVE: Patient arrives by ambulance from home after worsening respiratory difficulty. She has oxygen dependent COPD and her breathing felt much worse overnight. Home treatments were not helping. She called 911 and on arrival, paramedics placed her on CPAP and administered nebulized medication. She was moderately anxious at the scene but was not given any type of sedative medication. She denies being ill from anything else recently although she is somewhat sleepy. 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, IV/IO - Related Data Allergies Allergy/AdvReac Type Severity Reaction Status Date / Time cefazolin Allergy Itching Verified 07/24/19 05:54 cephalexin Allergy Itching Verified 07/24/19 05:54 paroxetine Allergy Itching Verified 07/24/19 05:54 roflumilast [From Daliresp] Allergy Other Verified 07/24/19 05:54 Home Meds: Home Meds Albuterol Sulfate [Proair Hfa] 2 puff INH QID 10/12/14 [History] Albuterol [Proventil Neb Soln] 1 vial INH QID PRN 10/12/14 [History] Aspirin [Halfprin] 81 mg PO DAILY 10/12/14 [History] Cholecalciferol (Vitamin D3) [Vitamin D3] 1,000 unit PO DAILY 10/12/14 [History] Clopidogrel [Plavix] 75 mg PO DAILY 10/12/14 [History] Mirtazapine [Remeron] 30 mg PO BEDTIME 10/12/14 [History] Nitroglycerin [Nitrostat] 1 tab SL ASDIRECTED 10/12/14 [History] Tiotropium [Spiriva HandiHaler] 18 mcg INH DAILY 10/12/14 [History] tiZANidine HCl [Zanaflex] 4 mg PO Q8H PRN 10/12/14 [History] atorvaSTATin [Lipitor] 80 mg PO BEDTIME 09/20/17 [History] Metoprolol Tartrate 50 mg PO BID 01/06/19 [History] Budesonide/Formoterol [Symbicort 160-4.5 MCG] 2 puff INH BID 03/02/19 [History] Diclofenac Sodium 4 gm TOP QID PRN 07/24/19 [History] Past Medical History HEENT History: Reports: Impaired Vision Cardiovascular History: Reports: [place], SOB on Exertion Respiratory History: Reports: COPD, Other (See Below) Other Respiratory History: lung cancer 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: , 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 , Other (See Below) 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 History: c sections x3 Psychiatric History: Reports: Depression Oncologic (Cancer) History: Reports: Lung Other Oncologic History: tumor right leg x3 Dermatologic History: Reports: Cellulitis - Infectious Disease History Infectious Disease History: Reports: Chicken Pox - Past Surgical History HEENT Surgical History: Reports: Oral Surgery, Tonsillectomy Cardiovascular Surgical History: Reports: Other (See Below) Other Cardiovascular Surgeries/Procedures: angiogram GI Surgical History: Reports: Colonoscopy, Other (See Below) Other GI Surgeries/Procedures: polyps Other Neurological Surgeries/Procedures: cervical spine surgery Musculoskeletal Surgical History: Reports: Other (See Below) Other Musculoskeletal Surgeries/Procedures:: neck Social & Family History - Family History Cardiac: Reports: CAD - Caffeine Use Caffeine Use: Reports: None ED ROS GENERAL - Review of Systems Review Of Systems: See Below Constitutional: Reports: Malaise HEENT: Reports: No Symptoms Respiratory: Reports: Shortness of Breath Cardiovascular: Reports: Dyspnea on Exertion. Denies: Chest Pain GI/Abdominal: Reports: No Symptoms Musculoskeletal: Reports: No Symptoms Psychiatric: Reports: Anxiety ED EXAM, GENERAL - Physical Exam Exam: See Below Exam Limited By: Respiratory Distress General Appearance: Alert, Moderate Distress Respiratory/Chest: Respiratory Distress, Wheezing, Accessory Muscle Use Cardiovascular: Tachycardia GI/Abdominal: Soft, Non-Tender EKG INTERPRETATION EKG Date: 07/24/19 Rhythm: NSR Rate (Beats/Min): 124 [place]: Normal P-Wave: Present QRS: Normal ST-T: Normal QT: Normal Comparison: NA - No Prior EKG Course - Vital Signs Last Recorded V/S: Last Vital Signs Temp 35.6 C 07/24/19 05:10 Pulse 124 H 07/24/19 05:10 Resp 18 07/24/19 05:10 BP 174/89 H 07/24/19 05:10 Pulse Ox 99 07/24/19 05:10 - Orders/Labs/Meds Orders: Active Orders 24 hr Category Date Time Status BIPAP Adult [RT BiPAP/CPAP] [RC] ASDIRECTED Care 07/24/19 05:53 Ordered EKG Documentation Completion [RC] ASDIRECTED Care 07/24/19 06:25 Ordered Sodium Chloride 0.9% [Saline Flush] Med 07/24/19 05:24 Ordered 10 ml FLUSH ASDIRECTED PRN Saline Lock Insert [OM.PC] Routine Oth 07/24/19 05:24 Ordered EKG 12 Lead [EK] Routine Ther 07/24/19 06:24 Ordered Medication Orders Sodium Chloride (Saline Flush) 10 ml FLUSH ASDIRECTED PRN PRN Reason: Keep Vein Open Last Admin: 07/24/19 06:02 Dose: 10 ml Admin: 07/24/19 05:37 Dose: 10 ml Labs: Laboratory Tests 07/24/19 07/24/19 07/24/19 Range/Units 05:35 05:35 05:47 WBC 14.5 H (4.5-11.0) K/uL RBC 4.57 (3.30-5.50) M/uL Hgb 13.4 (12.0-15.0) g/dL Hct 43.0 (36.0-48.0) % MCV 94 (80-98) fL MCH 29 (27-31) pg MCHC 31 L (32-36) % Plt Count 181 (150-400) K/uL Neut % (Auto) 89 H (36-66) % Lymph % (Auto) 5 L (24-44) % [place] % (Auto) 5 (2-6) % Eos % (Auto) 1 L (2-4) % Baso % (Auto) 0 (0-1) % Puncture Site R radial ABG pH 7.250 L (7.350-7.450) ABG pCO2 77.4 H* (35.0-42.0) mmHg ABG pO2 193.0 H (75.0-100.0) mmHg ABG HCO3 32.8 H (22.0-26.0) mmol/L ABG Total CO2 30.3 H (21.0-25.0) mmol/L ABG O2 Saturation 98.9 H (95.0-98.0) % ABG O2 Content 18.4 (15.0-23.0) %vol ABG Base Excess 3.5 mm/L ABG Hemoglobin 13.2 (12.0-16.0) g/dL ABG Oxyhemoglobin 97.4 % ABG Carboxyhemoglobin 0.6 (0.0-1.6) % ABG Methemoglobin 0.9 % Armen Test Ok O2 Delivery Device Cpap Oxygen Flow Rate 8 L Sodium 145 (140-148) mmol/L Potassium 4.2 (3.6-5.2) mmol/L Chloride 105 (100-108) mmol/L Carbon Dioxide 33 H (21-32) mmol/L Anion Gap 11.2 (5.0-14.0) mmol/L BUN 22 H (7-18) mg/dL Creatinine 0.7 (0.6-1.0) mg/dL Est Cr Clr Drug Dosing 68.90 mL/min Estimated GFR (MDRD) > 60 (>60) Glucose 111 H (74-106) mg/dL Calcium 8.8 (8.5-10.1) mg/dL Total Bilirubin 0.4 (0.2-1.0) mg/dL AST 29 (15-37) U/L ALT 38 (12-78) U/L Alkaline Phosphatase 64 (46-116) U/L Troponin I 0.054 (0.000-0.056) ng/mL Total Protein 7.6 (6.4-8.2) g/dL Albumin 4.1 (3.4-5.0) g/dL Globulin 3.5 (2.3-3.5) g/dL Albumin/Globulin Ratio 1.2 (1.2-2.2) Meds: Medications Generic Name Dose Route Start Last Admin Trade Name Freq PRN Reason Stop Dose Admin Sodium Chloride 10 ml 07/24/19 05:24 07/24/19 06:02 Saline Flush FLUSH 10 ml ASDIRECTED PRN Administration Keep Vein Open Discontinued Medications Generic Name Dose Route Start Last Admin Trade Name Freq PRN Reason Stop Dose Admin Lorazepam 0.25 mg 07/24/19 05:57 07/24/19 06:01 Ativan IVPUSH 07/24/19 05:58 0.25 mg ONETIME ONE Administration Lorazepam 0.25 mg 07/24/19 06:41 Ativan IVPUSH 07/24/19 06:42 ONETIME ONE Methylprednisolone Sodium Succinate 125 mg 07/24/19 05:24 07/24/19 05:37 Solu-Medrol IVPUSH 07/24/19 05:25 125 mg ONETIME ONE Administration - Re-Assessments/Exams Free Text/Narrative Re-Assessment/Exam: 07/24/19 06:30 Patient is tolerating CPAP but still is somewhat somnolent. PCO2 was found to be 77 although PO2 is almost 200. She has remained tachycardic in the 120s throughout her time here. EKG is pending. 07/24/19 08:05 Patient is received multiple nebulization treatments along with methylprednisolone 125 mg IV. She was placed on BiPAP to assist with relaxation of her breathing pattern. She was given 2 doses of lorazepam 0.25 mg IV to assist with relaxation. Reviewed her case with hospital service to arrange admission and further care. She will be admitted to the ICU. Departure - Departure Time of Disposition: 06:20 Disposition: Admitted As Inpatient 64 Condition: Good Clinical Impression: COPD with exacerbation, Chronic hypercapnic respiratory failure - Discharge Information Referrals: PCP,None [Primary Care Provider] - Forms: ED Department Discharge Sepsis Event Note - Evaluation Sepsis Screening Result: No Definite Risk - Focused Exam Vital Signs: Vital Signs Temp Pulse Resp BP Pulse Ox 07/24/19 05:10 35.6 C 124 H 18 174/89 H 99 Date Exam was Performed: 07/24/19 Time Exam was Performed: 06:43 - My Orders Last 24 Hours: My Active Orders 07/24/19 05:24 Sodium Chloride 0.9% [Saline Flush] 10 ml FLUSH ASDIRECTED PRN Saline Lock Insert [OM.PC] Routine 07/24/19 05:53 BIPAP Adult [RT BiPAP/CPAP] [RC] ASDIRECTED 07/24/19 06:24 EKG 12 Lead [EK] Routine 07/24/19 06:25 EKG Documentation Completion [RC] ASDIRECTED - Assessment/Plan Last 24 Hours: My Active Orders 07/24/19 05:24 Sodium Chloride 0.9% [Saline Flush] 10 ml FLUSH ASDIRECTED PRN Saline Lock Insert [OM.PC] Routine 07/24/19 05:53 BIPAP Adult [RT BiPAP/CPAP] [RC] ASDIRECTED 07/24/19 06:24 EKG 12 Lead [EK] Routine 07/24/19 06:25 EKG Documentation Completion [RC] ASDIRECTED
[2019-07-24] MEDS ORDERED: cefTRIAXone 1 GM in Sodium Chloride 0.9% 50 ML IV SCH (07:30)
--- NOTE | 2019-07-24 07:31 | PCM.HP.2 ---
H&P History of Present Illness - General Date of Service: 07/24/19 Admit Problem/Dx: Admission Diagnosis/Problem Admission Diagnosis/Problem Acute exacerbation of chronic obstructive airways disease Source of Information: Patient, Provider History Limitations: Reports: Respiratory Distress - History of Present Illness Initial Comments - Free Text/Narative: CC: I can't breath HPI: Emily presents to the emergency room by ambulance with acute and progressive shortness of breath. She reports significant worsening of her chronic dyspnea over the past couple of days. She is now short of breath even at rest. She does not have much of a cough. She does report mild achy pain in the lower part of her chest that radiates through to her back. This is worse with deep breathing. She has not taken anything to make it feel better. This is relatively mild and stable for the past day. No obvious fevers or chills. No definite sick contacts. No nausea or abdominal pain. She has not had antibiotics or steroids in a few months. No lower extremity swelling or orthopnea. She arrived to the emergency room on CPAP in the ambulance. She was transitioned to noninvasive positive pressure ventilation in the emergency room. She has received Solu-Medrol. Chest x-ray was clear. She has evidence to support acute exacerbation of COPD probably secondary to a bronchitis. She is not currently febrile. She does have evidence for CO2 retention on ABGs. She will be admitted to the intensive care unit for further management with noninvasive positive pressure ventilation dependence at this time. Back Pain Score (Numeric/FACES): 8 - Related Data Allergies/Adverse Reactions: Allergies Allergy/AdvReac Type Severity Reaction Status Date / Time cefazolin Allergy Itching Verified 07/24/19 05:54 cephalexin Allergy Itching Verified 07/24/19 05:54 paroxetine Allergy Itching Verified 07/24/19 05:54 roflumilast [From Daliresp] Allergy Other Verified 07/24/19 05:54 Home Medications: Home Meds Albuterol Sulfate [Proair Hfa] 2 puff INH QID 10/12/14 [History] Albuterol [Proventil Neb Soln] 1 vial INH QID PRN 10/12/14 [History] Aspirin [Halfprin] 81 mg PO DAILY 10/12/14 [History] Cholecalciferol (Vitamin D3) [Vitamin D3] 1,000 unit PO DAILY 10/12/14 [History] Clopidogrel [Plavix] 75 mg PO DAILY 10/12/14 [History] Mirtazapine [Remeron] 30 mg PO BEDTIME 10/12/14 [History] Nitroglycerin [Nitrostat] 1 tab SL ASDIRECTED 10/12/14 [History] Tiotropium [Spiriva HandiHaler] 18 mcg INH DAILY 10/12/14 [History] tiZANidine HCl [Zanaflex] 4 mg PO Q8H PRN 10/12/14 [History] atorvaSTATin [Lipitor] 80 mg PO BEDTIME 09/20/17 [History] Metoprolol Tartrate 50 mg PO BID 01/06/19 [History] Budesonide/Formoterol [Symbicort 160-4.5 MCG] 2 puff INH BID 03/02/19 [History] Diclofenac Sodium 4 gm TOP QID PRN 07/24/19 [History] Past Medical History HEENT History: Reports: Impaired Vision Cardiovascular History: Reports: [place], SOB on Exertion Respiratory History: Reports: COPD, Other (See Below) Other Respiratory History: lung 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: , 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 , Other (See Below) Other OB/BYN History: c sections x3 Psychiatric History: Reports: Depression Oncologic (Cancer) History: Reports: Lung Other Oncologic History: tumor right leg x3 Dermatologic History: Reports: Cellulitis - Infectious Disease History Infectious Disease History: Reports: Chicken Pox - Past Surgical History HEENT Surgical History: Reports: Oral Surgery, Tonsillectomy Cardiovascular Surgical History: Reports: Other (See Below) Other Cardiovascular Surgeries/Procedures: angiogram GI Surgical History: Reports: Colonoscopy, Other (See Below) Other GI Surgeries/Procedures: polyps Other Neurological Surgeries/Procedures: cervical spine surgery Musculoskeletal Surgical History: Reports: Other (See Below) Other Musculoskeletal Surgeries/Procedures:: neck Social & Family History - Family History Cardiac: Reports: CAD - Caffeine Use Caffeine Use: Reports: None - Alcohol Use Alcohol Use History: No H&P Review of Systems - Review of Systems: Review Of Systems: See Below Free Text/Narrative: A complete 12 point review of systems was obtained. Pertinent positives and negatives are noted in the history of present illness. All other systems were reviewed and were negative except as noted. Exam - Exam Exam: See Below - Vital Signs Vital Signs: Last Vital Signs Temp 35.6 C 07/24/19 05:10 Pulse 125 H 07/24/19 06:37 Resp 14 07/24/19 06:37 BP 136/65 07/24/19 06:37 Pulse Ox 93 L 07/24/19 06:37 Weight: 51.71 kg - Exam Quality Assessment: Supplemental Oxygen General: Alert, Cooperative, Moderate Distress HEENT: No: Mucosa Moist & [place] (dry), Scleral Icterus Neck: Supple. No: JVD Lungs: Decreased Breath Sounds (poor air movement diffusely ). No: Normal Respiratory Effort (increased work of breathing ), Wheezing Cardiovascular: Regular Rhythm, Tachycardia. No: Systolic Murmur GI/Abdominal Exam: Normal Bowel Sounds, Soft, Non-Tender, No Distention Back Exam: Normal Inspection, Full Range of Motion Extremities: No Pedal Edema. No: Increased Warmth Peripheral Pulses: 2+: Dorsalis Pedis (L), Dorsalis Pedis (R) Skin: Warm, Dry Neuro Extensive - Mental Status: Alert, Nl Response to Commands Neuro Extensive - Motor, Sensory, Reflexes: No: Dysarthria, Abnormal Motor, Tremor Psychiatric: Alert, Anxious - Patient Data Lab Results Last 24 hrs: Laboratory Results - last 24 hr 07/24/19 07/24/19 07/24/19 Range/Units 05:35 05:35 05:47 WBC 14.5 H (4.5-11.0) K/uL RBC 4.57 (3.30-5.50) M/uL Hgb 13.4 (12.0-15.0) g/dL Hct 43.0 (36.0-48.0) % MCV 94 (80-98) fL MCH 29 (27-31) pg MCHC 31 L (32-36) % Plt Count 181 (150-400) K/uL Neut % (Auto) 89 H (36-66) % Lymph % (Auto) 5 L (24-44) % [place] % (Auto) 5 (2-6) % Eos % (Auto) 1 L (2-4) % Baso % (Auto) 0 (0-1) % Puncture Site R radial ABG pH 7.250 L (7.350-7.450) ABG pCO2 77.4 H* (35.0-42.0) mmHg ABG pO2 193.0 H (75.0-100.0) mmHg ABG HCO3 32.8 H (22.0-26.0) mmol/L ABG Total CO2 30.3 H (21.0-25.0) mmol/L ABG O2 Saturation 98.9 H (95.0-98.0) % ABG O2 Content 18.4 (15.0-23.0) %vol ABG Base Excess 3.5 mm/L ABG Hemoglobin 13.2 (12.0-16.0) g/dL ABG Oxyhemoglobin 97.4 % ABG Carboxyhemoglobin 0.6 (0.0-1.6) % ABG Methemoglobin 0.9 % Armen Test Ok O2 Delivery Device Cpap Oxygen Flow Rate 8 L Sodium 145 (140-148) mmol/L Potassium 4.2 (3.6-5.2) mmol/L Chloride 105 (100-108) mmol/L Carbon Dioxide 33 H (21-32) mmol/L Anion Gap 11.2 (5.0-14.0) mmol/L BUN 22 H (7-18) mg/dL Creatinine 0.7 (0.6-1.0) mg/dL Est Cr Clr Drug Dosing 68.90 mL/min Estimated GFR (MDRD) > 60 (>60) Glucose 111 H (74-106) mg/dL Calcium 8.8 (8.5-10.1) mg/dL Total Bilirubin 0.4 (0.2-1.0) mg/dL AST 29 (15-37) U/L ALT 38 (12-78) U/L Alkaline Phosphatase 64 (46-116) U/L Troponin I 0.054 (0.000-0.056) ng/mL Total Protein 7.6 (6.4-8.2) g/dL Albumin 4.1 (3.4-5.0) g/dL Globulin 3.5 (2.3-3.5) g/dL Albumin/Globulin Ratio 1.2 (1.2-2.2) Result Diagrams: 07/24/19 05:35 07/24/19 05:35 Imaging Impressions Last 24 hrs: CXR-images personally reviewed-hyperinflation but no mass, infiltrate or effusion. Heart size is normal. Sepsis Event Note - Evaluation Sepsis Screening Result: No Definite Risk - Focused Exam Vital Signs: Vital Signs Temp Pulse Resp BP Pulse Ox 07/24/19 06:37 125 H 14 136/65 93 L 07/24/19 06:06 121 H 18 156/98 H 99 07/24/19 05:10 35.6 C 124 H 18 174/89 H 99 Date Exam was Performed: 07/24/19 Time Exam was Performed: 11:32 *Q Meaningful Use (ADM) - VTE Risk Assess *Q Each Risk Factor Represents 1 Point: Serious lung disease including pneumonia, Abnormal Pulmonary Function (COPD) Total Score 1 Point Risk Factors: 2 Each Risk Factor Represents 2 Points: Age 60 - 74 Years Total Score 2 Point Risk Factors: 2 Each Risk Factor Represents 3 Points: None Total Score 3 Point Risk Factors: 0 Each Risk Factor Represents 5 Points: None Total Score 5 Point Risk Factors: 0 Venous Thromboembolism Risk Factor Score *Q: 4 - Problem List (1) COPD with exacerbation SNOMED Code(s): 488423197 ICD Code: J44.1 - CHRONIC OBSTRUCTIVE PULMONARY DISEASE W (ACUTE) EXACERBATION Status: Acute Current Visit: Yes (2) Acute and chronic respiratory failure with hypercapnia SNOMED Code(s): 8016232430720 ICD Code: J96.22 - ACUTE AND CHRONIC RESPIRATORY FAILURE WITH HYPERCAPNIA Status: Acute Current Visit: Yes (3) Acute bronchitis SNOMED Code(s): 26924971 ICD Code: J20.9 - ACUTE BRONCHITIS, UNSPECIFIED Status: Suspected Current Visit: Yes Qualifiers: Bronchitis organism: unspecified organism Qualified Code(s): J20.9 - Acute bronchitis, unspecified (4) Coronary artery disease SNOMED Code(s): 35512265 ICD Code: I25.10 - ATHSCL HEART DISEASE OF [place] CORONARY ARTERY W/O ANG PCTRS Status: Chronic Current Visit: No Qualifiers: Coronary Disease-Associated Artery/Lesion type: [place] artery [place] vs. transplanted heart: [place] heart Associated angina: without angina Qualified Code(s): I25.10 - Atherosclerotic heart disease of [place] coronary artery without angina pectoris Problem List Initiated/Reviewed/Updated: Yes Orders Last 24hrs: Active Orders 24 hr Category Date Time Status Patient Status Manage Transfer [TRANSFER] Routine ADT 07/24/19 07:18 Ordered BIPAP Adult [RT BiPAP/CPAP] [RC] ASDIRECTED Care 07/24/19 05:53 Active EKG Documentation Completion [RC] ASDIRECTED Care 07/24/19 06:25 Active Doxycycline [Vibramycin] 100 mg Med 07/24/19 08:00 Active Sodium Chloride 0.9% [Normal Saline] 100 ml IV Q12H Sodium Chloride 0.9% [Saline Flush] Med 07/24/19 05:24 Active 10 ml FLUSH ASDIRECTED PRN cefTRIAXone [Rocephin] 1 gm Med 07/24/19 07:30 Active Sodium Chloride 0.9% [Normal Saline] 50 ml IV Q24H Saline Lock Insert [OM.PC] Routine Oth 07/24/19 05:24 Ordered Resuscitation Status Routine Resus Stat 07/24/19 07:20 Ordered EKG 12 Lead [EK] Routine Ther 07/24/19 06:24 Ordered Medication Orders Ceftriaxone Sodium 1 gm/ (Sodium Chloride) 50 mls @ 100 mls/hr IV Q24H HERBER Doxycycline Hyclate 100 mg/ (Sodium Chloride) 100 mls @ 100 mls/hr IV Q12H HERBER Sodium Chloride (Saline Flush) 10 ml FLUSH ASDIRECTED PRN PRN Reason: Keep Vein Open Last Admin: 07/24/19 06:02 Dose: 10 ml Admin: 07/24/19 05:37 Dose: 10 ml Assessment/Plan Comment:: ASSESSMENT AND PLAN - Acute exacerbation of COPD-likely secondary to bronchitis but not clear if viral or bacterial. Further complicated by acute on chronic respiratory failure with both hypoxia and hypercapnia. Currently requiring noninvasive ventilation. PCO2 significantly elevated and there is a respiratory acidosis. Poor air movement and tachycardic. No recent antibiotics or steroids. She did receive steroids in the emergency room. -Continue steroids every 6 hours -Scheduled and as needed nebulizers -Continue noninvasive ventilation -Monitor end-tidal CO2 -Sputum culture if able -Empiric ceftriaxone and doxycycline -Continue home medications for COPD -Lorazepam as needed for anxiety while dependent on the NIPPV Severe COPD-oxygen dependent at baseline with significant supplemental oxygen requirements. Acute worsening in the past couple of days as discussed above. Coronary artery disease-history of [place]. No active cardiac symptoms at this time. -Continue medical management Maintenance issues - - DVT prophylaxis -mechanical - GI prophylaxis -PPI with steroids - Nutrition -full liquids until respiratory status stabilizes - Bello catheter -not indicated CODE STATUS -patient wishes to be full code Admission justification -this patient will be admitted for inpatient services and is medically appropriate meeting medical necessity for inpatient admission as outlined in my documentation. I reasonably expect the patient will require inpatient services that span a period time over 2 midnights. I reasonably expect this patient to be discharged or transferred within 96 hours after admission to the [facility]. Disposition -I would anticipate discharge home after the hospital stay Primary care physician -Dr. Michelle Morales M.D. - Mortality Measure Prognosis:: Poor
[2019-07-24] MEDS: Doxycycline 100 MG in Sodium Chloride 0.9% 100 ML IV SCH ×2 (07:38→20:09)
[2019-07-24] MEDS ORDERED: diphenhydrAMINE 25 MG Cap PO PRN (08:08)
[2019-07-24] MEDS ORDERED: tiZANidine 4 MG Tab PO PRN (08:08)
[2019-07-24] MEDS ORDERED: Acetaminophen 325 MG Tab PO PRN (08:08)
[2019-07-24] MEDS ORDERED: Magnesium Hydroxide 400 MG/5 ML Susp 30 ML Cup PO PRN (08:08)
[2019-07-24] MEDS ORDERED: Ondansetron 4 MG Tab.DIS PO PRN (08:08)
[2019-07-24] MEDS ORDERED: Ondansetron 4 MG/2 ML SDV IV PRN (08:08)
[2019-07-24] MEDS ORDERED: LORazepam 2 MG/ML SDV IVPUSH PRN (08:08)
[2019-07-24] MEDS: Morphine 2 MG/ML SYRINGE IVPUSH PRN ×4 (08:31→20:03)
[2019-07-24] MEDS: Albuterol 0.083% 2.5 MG/3 ML Neb Soln NEB PRN ×4 (08:35→20:00)
[2019-07-24] MEDS: Fluticasone-Salmeterol 232-14 MCG Powder Inhalent INH SCH ×2 (08:49→21:06)
[2019-07-24] MEDS: Lactobacillus Rhamnosus GG (Probiotic) Cap PO SCH ×2 (09:16→21:07)
[2019-07-24] MEDS: Clopidogrel 75 MG Tab PO SCH (09:16)
[2019-07-24] MEDS: Aspirin 81 MG Tab.EC PO SCH (09:16)
[2019-07-24] MEDS: Pantoprazole 40 MG Tab.CR PO SCH (09:16)
[2019-07-24] MEDS: Metoprolol Tartrate 50 MG Tab PO SCH ×2 (09:16→21:07)
[2019-07-24] MEDS: Albuterol/Ipratropium 3.0-0.5 MG/3 ML Neb Soln NEB SCH ×3 (10:41→21:13)
[2019-07-24] MEDS: Sodium Chloride 0.9% 1,000 ML IV SCH ×2 (10:57→20:07)
[2019-07-24] MEDS: methylPREDNISolone Sodium Succinate 125 MG/2 ML SDV IVPUSH SCH ×3 (11:54→23:35)
[2019-07-24] MEDS: LORazepam 0.5 MG Tab PO PRN ×2 (13:21→23:35)
[2019-07-24] MEDS: atorvaSTATin 20 MG Tab PO SCH (21:07)
[2019-07-24] MEDS: Mirtazapine 15 MG Tab PO SCH (21:08)
[2019-07-24] MEDS: Benzonatate 100 MG Cap PO PRN (23:36)
[2019-07-25] MEDS: Morphine 2 MG/ML SYRINGE IVPUSH PRN ×7 (00:17→21:21)
[2019-07-25] MEDS: methylPREDNISolone Sodium Succinate 125 MG/2 ML SDV IVPUSH SCH ×4 (05:34→23:11)
[2019-07-25] MEDS: LORazepam 2 MG/ML SDV IV PRN (06:06)
[2019-07-25] MEDS: Fluticasone-Salmeterol 232-14 MCG Powder Inhalent INH SCH ×2 (07:15→20:58)
[2019-07-25] MEDS: Albuterol/Ipratropium 3.0-0.5 MG/3 ML Neb Soln NEB SCH ×5 (07:15→23:11)
[2019-07-25] MEDS: Doxycycline 100 MG in Sodium Chloride 0.9% 100 ML IV SCH ×2 (08:22→19:52)
[2019-07-25] MEDS: Aspirin 81 MG Tab.EC PO SCH (08:25)
[2019-07-25] MEDS: Lactobacillus Rhamnosus GG (Probiotic) Cap PO SCH ×2 (08:25→20:58)
[2019-07-25] MEDS: Clopidogrel 75 MG Tab PO SCH (08:25)
[2019-07-25] MEDS: Metoprolol Tartrate 50 MG Tab PO SCH ×2 (08:25→20:57)
[2019-07-25] MEDS: Pantoprazole 40 MG Tab.CR PO SCH (08:25)
[2019-07-25] MEDS: Albuterol 0.083% 2.5 MG/3 ML Neb Soln NEB PRN (09:33)
--- NOTE | 2019-07-25 09:46 | PCM.PN ---
- General Info Date of Service: 07/25/19 Subjective Update: Overnight the patient had difficulty with increasing shortness of breath. Respiratory rate and heart rate did climb overnight. Symptoms did not respond well to lorazepam or morphine. This morning she was initially sleepy but has perked up after receiving a couple nebulizer treatments. Still quite short of breath. She was able to provide a sputum sample with a Gram stain showing gram- positive rods and cocci. End-tidal CO2 was around 60 before the nebulizer treatments but is now in the 50s. She did require noninvasive ventilation overnight. - Review of Systems General: Denies: Fever Pulmonary: Reports: Shortness of Breath - Patient Data Vitals - Most Recent: Last Vital Signs Temp 37 C 07/25/19 08:00 Pulse 108 H 07/25/19 08:25 Resp 24 H 07/25/19 08:00 BP 175/86 H 07/25/19 08:25 Pulse Ox 93 L 07/25/19 08:33 Weight - Most Recent: 51.71 kg I&O - Last 24 Hours: Intake & Output 07/24/19 07/25/19 07/25/19 22:59 06:59 14:59 Intake Total 834 807 Output Total 200 275 Balance 634 532 Lab Results Last 24 Hours: Laboratory Results - last 24 hr 07/24/19 07/25/19 07/25/19 Range/Units 10:00 05:40 05:40 WBC 8.5 (4.5-11.0) K/uL RBC 4.38 (3.30-5.50) M/uL Hgb 12.4 (12.0-15.0) g/dL Hct 42.7 (36.0-48.0) % MCV 98 (80-98) fL MCH 28 (27-31) pg MCHC 29 L (32-36) % Plt Count 173 (150-400) K/uL Puncture Site Rt radial ABG pH 7.204 L* (7.350-7.450) ABG pCO2 86.3 H* (35.0-42.0) mmHg ABG pO2 89.7 (75.0-100.0) mmHg ABG HCO3 32.8 H (22.0-26.0) mmol/L ABG Total CO2 30.8 H (21.0-25.0) mmol/L ABG O2 Saturation 94.7 L (95.0-98.0) % ABG O2 Content 16.9 (15.0-23.0) %vol ABG Base Excess 2.4 mm/L ABG Hemoglobin 12.9 (12.0-16.0) g/dL ABG Oxyhemoglobin 93.1 % ABG Carboxyhemoglobin 0.8 (0.0-1.6) % ABG Methemoglobin 0.9 % Armen Test Passed O2 Delivery Device Bipap Oxygen Flow Rate L Sodium 144 (140-148) mmol/L Potassium 4.6 (3.6-5.2) mmol/L Chloride 105 (100-108) mmol/L Carbon Dioxide 33 H (21-32) mmol/L Anion Gap 10.6 (5.0-14.0) mmol/L BUN 15 (7-18) mg/dL Creatinine 0.5 L (0.6-1.0) mg/dL Est Cr Clr Drug Dosing 96.45 mL/min Estimated GFR (MDRD) > 60 (>60) Glucose 145 H (74-106) mg/dL Calcium 8.7 (8.5-10.1) mg/dL [place]col Results Last 24 Hours: Microbiology 07/24/19 21:22 Gram Stain - Final Sputum - Expectorated Med Orders - Current: Current Medications Acetaminophen (Tylenol) 650 mg PO Q4H PRN PRN Reason: Pain (Mild 1-3)/fever Aspirin (Halfprin) 81 mg PO DAILY [facility] Last Admin: 07/25/19 08:25 Dose: 81 mg Atorvastatin Calcium (Lipitor) 80 mg PO BEDTIME [facility] Last Admin: 07/24/19 21:07 Dose: 80 mg Benzonatate (Tessalon Perles) 100 mg PO TID PRN PRN Reason: Cough Last Admin: 07/24/19 23:36 Dose: 100 mg Clopidogrel Bisulfate (Plavix) 75 mg PO DAILY [facility] Last Admin: 07/25/19 08:25 Dose: 75 mg Diphenhydramine HCl (Benadryl) 25 mg PO Q4H PRN PRN Reason: itching Doxycycline Hyclate 100 mg/ (Sodium Chloride) 100 mls @ 100 mls/hr IV Q12H [facility] Last Admin: 07/25/19 08:22 Dose: 100 mls/hr Ceftriaxone Sodium 1 gm/ (Sodium Chloride) 50 mls @ 100 mls/hr IV Q24H [facility] Lactobacillus Rhamnosus (Culturelle) 1 cap PO BID [facility] Last Admin: 07/25/19 08:25 Dose: 1 cap Lorazepam (Ativan) 0.5 mg IVPUSH Q4H PRN PRN Reason: Nausea/Vomiting Lorazepam (Ativan) 0.5 mg IV Q4H PRN PRN Reason: Anxiety Last Admin: 07/25/19 06:06 Dose: 0.5 mg Lorazepam (Ativan) 0.5 mg PO Q4H PRN PRN Reason: Anxiety Last Admin: 07/24/19 23:35 Dose: 0.5 mg Magnesium Hydroxide (Milk Of Magnesia) 30 ml PO Q12H PRN PRN Reason: Constipation Methylprednisolone Sodium Succinate (Solu-Medrol) 62.5 mg IVPUSH Q6H [facility] Last Admin: 07/25/19 05:34 Dose: 62.5 mg Metoprolol Tartrate (Lopressor) 50 mg PO BID [facility] Last Admin: 07/25/19 08:25 Dose: 50 mg Mirtazapine (Remeron) 30 mg PO BEDTIME [facility] Last Admin: 07/24/19 21:08 Dose: 30 mg Morphine Sulfate (Morphine) 2 mg IVPUSH Q2H PRN PRN Reason: Pain (Severe 7-10)/Air Hunger Last Admin: 07/25/19 06:06 Dose: 2 mg Ondansetron HCl (Zofran Odt) 4 mg PO Q6H PRN PRN Reason: Nausea able to take PO Ondansetron HCl (Zofran) 4 mg IV Q6H PRN PRN Reason: Nausea/Vomiting Pantoprazole Sodium (Protonix) 40 mg PO ACBREAKFAST [facility] Last Admin: 07/25/19 08:25 Dose: 40 mg Fluticasone/Salmeterol (Fluticasone-Salmeterol 232-14 Mcg Powder Inha) 1 puff INH BIDRT [facility] Last Admin: 07/25/19 07:15 Dose: 1 puff Senna/Docusate Sodium (Senna Plus) 1 tab PO BID PRN PRN Reason: Constipation Sodium Chloride (Saline Flush) 10 ml FLUSH ASDIRECTED PRN PRN Reason: Keep Vein Open Last Admin: 07/24/19 06:02 Dose: 10 ml Tizanidine HCl (Zanaflex) 4 mg PO Q8H PRN PRN Reason: muscle spasms Discontinued Medications Albuterol (Proventil Neb Soln) 2.5 mg NEB Q2H PRN PRN Reason: Shortness Of Breath/wheezing Last Admin: 07/25/19 09:33 Dose: 2.5 mg Albuterol/Ipratropium (Duoneb 3.0-0.5 Mg/3 Ml) 3 ml NEB QIDRT [facility] Last Admin: 07/25/19 07:15 Dose: 3 ml Ceftriaxone Sodium 1 gm/ (Sodium Chloride) 50 mls @ 100 mls/hr IV Q24H [facility] Stop: 07/24/19 11:00 Last Admin: 07/24/19 09:16 Dose: 100 mls/hr Sodium Chloride (Normal Saline) 1,000 mls @ 75 mls/hr IV ASDIRECTED [facility] Last Admin: 07/24/19 20:07 Dose: 75 mls/hr Lorazepam (Ativan) 0.25 mg IVPUSH ONETIME ONE Stop: 07/24/19 05:58 Last Admin: 07/24/19 06:01 Dose: 0.25 mg Lorazepam (Ativan) 0.25 mg IVPUSH ONETIME ONE Stop: 07/24/19 06:42 Last Admin: 07/24/19 06:57 Dose: 0.25 mg Methylprednisolone Sodium Succinate (Solu-Medrol) 125 mg IVPUSH ONETIME ONE Stop: 07/24/19 05:25 Last Admin: 07/24/19 05:37 Dose: 125 mg - Exam Quality Assessment: Supplemental Oxygen General: Alert, Cooperative, Moderate Distress Lungs: Wheezing (very end exp), Other (very poor air movement ). No: Normal Respiratory Effort (increased work of breathing ), Crackles Cardiovascular: Regular Rhythm, Tachycardia GI/Abdominal Exam: Soft, No Distention Extremities: No Pedal Edema. No: Increased Warmth Skin: Warm, Dry Psy/Mental Status: Alert. No: Agitated Sepsis Event Note - Evaluation Sepsis Screening Result: Severe Sepsis Risk - Focused Exam Vital Signs: Vital Signs Temp Pulse Pulse Resp BP BP Pulse Ox 07/25/19 08:33 93 L 07/25/19 08:25 108 H 175/86 H 07/25/19 08:00 37 C 24 H 175/86 H 93 L 07/25/19 07:19 112 H 07/25/19 07:15 101 H 07/25/19 06:00 35 H 192/96 H 90 L 07/25/19 04:00 37.2 C 29 H 169/87 H 91 L 07/25/19 02:39 26 H 92 L 07/25/19 02:00 35 H 162/88 H 88 L 07/25/19 00:00 33 H 153/77 H 93 L 07/24/19 22:00 37.3 C 90 24 H 148/72 H 90 L Pulse Ox 07/25/19 08:33 07/25/19 08:25 07/25/19 08:00 07/25/19 07:19 07/25/19 07:15 92 L 07/25/19 06:00 07/25/19 04:00 07/25/19 02:39 07/25/19 02:00 07/25/19 00:00 07/24/19 22:00 Date Exam was Performed: 07/25/19 Time Exam was Performed: 13:49 - Problem List & Annotations (1) COPD with exacerbation SNOMED Code(s): 408541113 Code(s): J44.1 - CHRONIC OBSTRUCTIVE PULMONARY DISEASE W (ACUTE) EXACERBATION Status: Acute Current Visit: Yes (2) Acute and chronic respiratory failure with hypercapnia SNOMED Code(s): 3253507396617 Code(s): J96.22 - ACUTE AND CHRONIC RESPIRATORY FAILURE WITH HYPERCAPNIA Status: Acute Current Visit: Yes (3) Acute bronchitis SNOMED Code(s): 49501949 Code(s): J20.9 - ACUTE BRONCHITIS, UNSPECIFIED Status: Suspected Current Visit: Yes Qualifiers: Bronchitis organism: unspecified organism Qualified Code(s): J20.9 - Acute bronchitis, unspecified (4) Coronary artery disease SNOMED Code(s): 98121190 Code(s): I25.10 - ATHSCL HEART DISEASE OF [place] CORONARY ARTERY W/O ANG PCTRS Status: Chronic Current Visit: No Qualifiers: Coronary Disease-Associated Artery/Lesion type: [place] artery [place] vs. transplanted heart: [place] heart Associated angina: without angina Qualified Code(s): I25.10 - Atherosclerotic heart disease of [place] coronary artery without angina pectoris - Problem List Review Problem List Initiated/Reviewed/Updated: Yes - My Orders Last 24 Hours: My Active Orders 07/24/19 09:00 Aspirin [Halfprin] 81 mg PO DAILY Clopidogrel [Plavix] 75 mg PO DAILY Fluticasone/Salmeterol [Fluticasone-Salmeterol 232-14 MCG Powder Inha] 1 puff INH BIDRT Lactobacillus Rhamnosus GG [Culturelle] 1 cap PO BID Metoprolol Tartrate [Lopressor] 50 mg PO BID Pantoprazole [ProTONIX] 40 mg PO ACBREAKFAST 07/24/19 12:00 methylPREDNISolone Sod Succ [Solu-MEDROL] 62.5 mg IVPUSH Q6H 07/24/19 21:00 Mirtazapine [Remeron] 30 mg PO BEDTIME atorvaSTATin [Lipitor] 80 mg PO BEDTIME 07/24/19 21:22 CULTURE RESPIRATORY + SMEAR [RM] Routine 07/25/19 09:00 cefTRIAXone [Rocephin] 1 gm Sodium Chloride 0.9% [Normal Saline] 50 ml IV Q24H 07/25/19 09:43 RT Aerosol Therapy [RC] ASDIRECTED levalbuterol HCL [Xopenex] 1.25 mg NEB Q1H PRN 07/25/19 09:45 Albuterol/Ipratropium [DuoNeb 3.0-0.5 MG/3 ML] 3 ml NEB Q4H Dextrose 5%-0.9% NaCl [Dextrose 5%-Normal Saline] 1,000 ml IV ASDIRECTED 07/26/19 05:00 BASIC METABOLIC PANEL,BMP [CHEM] Timed CBC W/O DIFF,HEMOGRAM [HEME] Timed (1) - Plan Plan:: ASSESSMENT AND PLAN - Acute exacerbation of COPD-likely secondary to bronchitis but not clear if viral or bacterial. Continue to require noninvasive ventilation overnight. Increasing respiratory rate and shortness of breath overnight but better this morning after nebulizer therapies. Sputum sample pending. Still very compromised with very poor air movement. -Continue steroids every 6 hours -Nebulizers every 4 hours scheduled -Nebulizers every 2 hours as needed -Continue noninvasive ventilation -Monitor end-tidal CO2 -Follow-up sputum culture -Empiric ceftriaxone and doxycycline -Continue home medications for COPD -Lorazepam as needed for anxiety while dependent on the NIPPV Severe COPD-oxygen dependent at baseline with significant supplemental oxygen requirements. Coronary artery disease-history of [place]. No active cardiac symptoms at this time. -Continue medical management Maintenance issues - - DVT prophylaxis -mechanical - GI prophylaxis -PPI with high dose steroids - Nutrition -full liquids until respiratory status stabilizes - Bello catheter -not indicated CODE STATUS -patient wishes to be full code Disposition -I would anticipate discharge home after the hospital stay Aly Morales M.D.
[2019-07-25] MEDS: cefTRIAXone 1 GM in Sodium Chloride 0.9% 50 ML IV SCH (09:48)
[2019-07-25] MEDS: Dextrose 5%-0.9% NaCl 1,000 ML IV SCH (10:59)
[2019-07-25] MEDS: Levalbuterol HCl 1.25 MG/3 ML Neb NEB PRN ×3 (13:06→21:18)
[2019-07-25] MEDS: atorvaSTATin 20 MG Tab PO SCH (20:58)
[2019-07-25] MEDS: Mirtazapine 15 MG Tab PO SCH (20:58)
[2019-07-25] MEDS: LORazepam 0.5 MG Tab PO PRN (21:03)
[2019-07-26] MEDS: Levalbuterol HCl 1.25 MG/3 ML Neb NEB PRN ×3 (01:03→14:22)
[2019-07-26] MEDS: LORazepam 2 MG/ML SDV IV PRN (01:30)
[2019-07-26] MEDS: Morphine 2 MG/ML SYRINGE IVPUSH PRN ×2 (01:31→18:38)
[2019-07-26] MEDS: Albuterol/Ipratropium 3.0-0.5 MG/3 ML Neb Soln NEB SCH ×6 (03:12→23:21)
[2019-07-26] MEDS: LORazepam 0.5 MG Tab PO PRN ×3 (05:28→21:31)
[2019-07-26] MEDS: Fluticasone-Salmeterol 232-14 MCG Powder Inhalent INH SCH ×2 (07:01→21:21)
[2019-07-26] MEDS: methylPREDNISolone Sodium Succinate 125 MG/2 ML SDV IVPUSH SCH ×3 (07:56→21:26)
[2019-07-26] MEDS: Pantoprazole 40 MG Tab.CR PO SCH (08:21)
[2019-07-26] MEDS: Clopidogrel 75 MG Tab PO SCH (08:23)
[2019-07-26] MEDS: Metoprolol Tartrate 50 MG Tab PO SCH ×2 (08:23→21:20)
[2019-07-26] MEDS: Lactobacillus Rhamnosus GG (Probiotic) Cap PO SCH ×2 (08:23→21:20)
[2019-07-26] MEDS: Aspirin 81 MG Tab.EC PO SCH (08:24)
[2019-07-26] MEDS: Doxycycline 100 MG in Sodium Chloride 0.9% 100 ML IV SCH ×2 (08:25→20:18)
--- NOTE | 2019-07-26 09:00 | PCM.PN ---
- General Info Date of Service: 07/26/19 Subjective Update: No acute events overnight. Respiratory status slowly improving. Heart rate has been stable around 100 or less. She did use noninvasive ventilation overnight but is off this morning and doing fairly well with just supplemental oxygen. Still quite short of breath. She has not been out of bed since admission other than to get to the commode and back. She is quite winded going just from the bed to the commode. No complaints of chest pain or nausea. No fevers. Functional Status: Reports: Pain Controlled, Tolerating Diet - Review of Systems General: Reports: Weakness. Denies: Fever Pulmonary: Reports: Shortness of Breath, Cough - Patient Data Vitals - Most Recent: Last Vital Signs Temp 37.4 C 07/25/19 19:55 Pulse 86 07/26/19 08:23 Resp 25 H 07/26/19 06:00 BP 129/71 07/26/19 08:23 Pulse Ox 94 L 07/26/19 08:00 Weight - Most Recent: 51.71 kg I&O - Last 24 Hours: Intake & Output 07/25/19 07/26/19 07/26/19 22:59 06:59 14:59 Intake Total 723 553 Output Total 800 400 Balance -77 153 Lab Results Last 24 Hours: Laboratory Results - last 24 hr 07/26/19 07/26/19 Range/Units 05:51 05:51 WBC 4.5 (4.5-11.0) K/uL RBC 4.09 (3.30-5.50) M/uL Hgb 11.2 L (12.0-15.0) g/dL Hct 40.1 (36.0-48.0) % MCV 98 (80-98) fL MCH 27 (27-31) pg MCHC 28 L (32-36) % Plt Count 166 (150-400) K/uL Sodium 147 (140-148) mmol/L Potassium 4.0 (3.6-5.2) mmol/L Chloride 105 (100-108) mmol/L Carbon Dioxide 36 H (21-32) mmol/L Anion Gap 10.0 (5.0-14.0) mmol/L BUN 18 (7-18) mg/dL Creatinine 0.5 L (0.6-1.0) mg/dL Est Cr Clr Drug Dosing 96.45 mL/min Estimated GFR (MDRD) > 60 (>60) Glucose 160 H (74-106) mg/dL Calcium 8.5 (8.5-10.1) mg/dL [place] Results Last 24 Hours: Microbiology 07/24/19 21:22 Gram Stain - Final Sputum - Expectorated Respiratory Culture - Preliminary NORMAL RESPIRATORY DANIELA 1 DAY Med Orders - Current: Current Medications Acetaminophen (Tylenol) 650 mg PO Q4H PRN PRN Reason: Pain (Mild 1-3)/fever Albuterol/Ipratropium (Duoneb 3.0-0.5 Mg/3 Ml) 3 ml NEB Q4H [facility] Last Admin: 07/26/19 07:01 Dose: 3 ml Aspirin (Halfprin) 81 mg PO DAILY [facility] Last Admin: 07/26/19 08:24 Dose: 81 mg Atorvastatin Calcium (Lipitor) 80 mg PO BEDTIME [facility] Last Admin: 07/25/19 20:58 Dose: 80 mg Benzonatate (Tessalon Perles) 100 mg PO TID PRN PRN Reason: Cough Last Admin: 07/24/19 23:36 Dose: 100 mg Clopidogrel Bisulfate (Plavix) 75 mg PO DAILY [facility] Last Admin: 07/26/19 08:23 Dose: 75 mg Diphenhydramine HCl (Benadryl) 25 mg PO Q4H PRN PRN Reason: itching Doxycycline Hyclate 100 mg/ (Sodium Chloride) 100 mls @ 100 mls/hr IV Q12H [facility] Last Admin: 07/26/19 08:25 Dose: 100 mls/hr Ceftriaxone Sodium 1 gm/ (Sodium Chloride) 50 mls @ 100 mls/hr IV Q24H [facility] Last Admin: 07/25/19 09:48 Dose: 100 mls/hr Dextrose/Sodium Chloride (Dextrose 5%-Normal Saline) 1,000 mls @ 50 mls/hr IV ASDIRECTED [facility] Last Admin: 07/25/19 10:59 Dose: 50 mls/hr Lactobacillus Rhamnosus (Culturelle) 1 cap PO BID [facility] Last Admin: 07/26/19 08:23 Dose: 1 cap Levalbuterol HCl (Xopenex) 1.25 mg NEB Q1H PRN PRN Reason: shortness of breath/wheezing Last Admin: 07/26/19 05:12 Dose: 1.25 mg Lorazepam (Ativan) 0.5 mg IVPUSH Q4H PRN PRN Reason: Nausea/Vomiting Lorazepam (Ativan) 0.5 mg IV Q4H PRN PRN Reason: Anxiety Last Admin: 07/26/19 01:30 Dose: 0.5 mg Lorazepam (Ativan) 0.5 mg PO Q4H PRN PRN Reason: Anxiety Last Admin: 07/26/19 05:28 Dose: 0.5 mg Magnesium Hydroxide (Milk Of Magnesia) 30 ml PO Q12H PRN PRN Reason: Constipation Methylprednisolone Sodium Succinate (Solu-Medrol) 62.5 mg IVPUSH Q6H [facility] Last Admin: 07/26/19 07:56 Dose: 62.5 mg Metoprolol Tartrate (Lopressor) 50 mg PO BID [facility] Last Admin: 07/26/19 08:23 Dose: 50 mg Mirtazapine (Remeron) 30 mg PO BEDTIME [facility] Last Admin: 07/25/19 20:58 Dose: 30 mg Morphine Sulfate (Morphine) 2 mg IVPUSH Q2H PRN PRN Reason: Pain (Severe 7-10)/Air Hunger Last Admin: 07/26/19 01:31 Dose: 2 mg Ondansetron HCl (Zofran Odt) 4 mg PO Q6H PRN PRN Reason: Nausea able to take PO Ondansetron HCl (Zofran) 4 mg IV Q6H PRN PRN Reason: Nausea/Vomiting Pantoprazole Sodium (Protonix) 40 mg PO ACBREAKFAST [facility] Last Admin: 07/26/19 08:21 Dose: 40 mg Fluticasone/Salmeterol (Fluticasone-Salmeterol 232-14 Mcg Powder Inha) 1 puff INH BIDRT [facility] Last Admin: 07/26/19 07:01 Dose: 1 puff Senna/Docusate Sodium (Senna Plus) 1 tab PO BID PRN PRN Reason: Constipation Sodium Chloride (Saline Flush) 10 ml FLUSH ASDIRECTED PRN PRN Reason: Keep Vein Open Last Admin: 07/24/19 06:02 Dose: 10 ml Tizanidine HCl (Zanaflex) 4 mg PO Q8H PRN PRN Reason: muscle spasms Discontinued Medications Albuterol (Proventil Neb Soln) 2.5 mg NEB Q2H PRN PRN Reason: Shortness Of Breath/wheezing Last Admin: 07/25/19 09:33 Dose: 2.5 mg Albuterol/Ipratropium (Duoneb 3.0-0.5 Mg/3 Ml) 3 ml NEB QIDRT [facility] Last Admin: 07/25/19 07:15 Dose: 3 ml Ceftriaxone Sodium 1 gm/ (Sodium Chloride) 50 mls @ 100 mls/hr IV Q24H [facility] Stop: 07/24/19 11:00 Last Admin: 07/24/19 09:16 Dose: 100 mls/hr Sodium Chloride (Normal Saline) 1,000 mls @ 75 mls/hr IV ASDIRECTED [facility] Last Admin: 07/24/19 20:07 Dose: 75 mls/hr Lorazepam (Ativan) 0.25 mg IVPUSH ONETIME ONE Stop: 07/24/19 05:58 Last Admin: 07/24/19 06:01 Dose: 0.25 mg Lorazepam (Ativan) 0.25 mg IVPUSH ONETIME ONE Stop: 07/24/19 06:42 Last Admin: 07/24/19 06:57 Dose: 0.25 mg Methylprednisolone Sodium Succinate (Solu-Medrol) 125 mg IVPUSH ONETIME ONE Stop: 07/24/19 05:25 Last Admin: 07/24/19 05:37 Dose: 125 mg - Exam Quality Assessment: Supplemental Oxygen General: Alert, Oriented, Cooperative, Mild Distress Lungs: Rhonchi (mild upper resp), Wheezing (end exp), Other (poor air movement ) . No: Normal Respiratory Effort (increased work of breathing ) Cardiovascular: Regular Rhythm, Tachycardia GI/Abdominal Exam: Soft, No Distention Extremities: No Pedal Edema. No: Increased Warmth Skin: Warm, Dry Psy/Mental Status: Alert, Normal Affect Sepsis Event Note - Evaluation Sepsis Screening Result: No Definite Risk - Focused Exam Vital Signs: Vital Signs Pulse Pulse Resp BP BP Pulse Ox 07/26/19 08:23 86 129/71 07/26/19 08:00 94 L 07/26/19 07:02 85 07/26/19 06:00 25 H 141/73 H 92 L 07/26/19 04:00 15 132/66 95 07/26/19 02:00 21 H 122/62 93 L 07/26/19 00:00 80 21 H 115/62 95 07/25/19 22:00 87 11 L 142/84 H 97 Date Exam was Performed: 07/26/19 Time Exam was Performed: 13:32 - Problem List & Annotations (1) COPD with exacerbation SNOMED Code(s): 505950030 Code(s): J44.1 - CHRONIC OBSTRUCTIVE PULMONARY DISEASE W (ACUTE) EXACERBATION Status: Acute Current Visit: Yes (2) Acute and chronic respiratory failure with hypercapnia SNOMED Code(s): 0560206862742 Code(s): J96.22 - ACUTE AND CHRONIC RESPIRATORY FAILURE WITH HYPERCAPNIA Status: Acute Current Visit: Yes (3) Acute bronchitis SNOMED Code(s): 46971935 Code(s): J20.9 - ACUTE BRONCHITIS, UNSPECIFIED Status: Suspected Current Visit: Yes Qualifiers: Bronchitis organism: unspecified organism Qualified Code(s): J20.9 - Acute bronchitis, unspecified (4) Coronary artery disease SNOMED Code(s): 84435428 Code(s): I25.10 - ATHSCL HEART DISEASE OF [place] CORONARY ARTERY W/O ANG PCTRS Status: Chronic Current Visit: No Qualifiers: Coronary Disease-Associated Artery/Lesion type: [place] artery [place] vs. transplanted heart: [place] heart Associated angina: without angina Qualified Code(s): I25.10 - Atherosclerotic heart disease of [place] coronary artery without angina pectoris - Problem List Review Problem List Initiated/Reviewed/Updated: Yes - My Orders Last 24 Hours: My Active Orders 07/25/19 09:00 cefTRIAXone [Rocephin] 1 gm Sodium Chloride 0.9% [Normal Saline] 50 ml IV Q24H 07/25/19 09:43 RT Aerosol Therapy [RC] ASDIRECTED levalbuterol HCL [Xopenex] 1.25 mg NEB Q1H PRN 07/25/19 09:45 Dextrose 5%-0.9% NaCl [Dextrose 5%-Normal Saline] 1,000 ml IV ASDIRECTED 07/25/19 11:00 Albuterol/Ipratropium [DuoNeb 3.0-0.5 MG/3 ML] 3 ml NEB Q4H 07/26/19 08:58 Up With Assistance [RC] ASDIRECTED PT Evaluation and Treatment [CONS] Routine RT Acapella [RESPCARE] Routine 07/26/19 14:00 methylPREDNISolone Sod Succ [Solu-MEDROL] 62.5 mg IVPUSH Q8H 07/27/19 05:00 BASIC METABOLIC PANEL,BMP [CHEM] Timed - Plan Plan:: ASSESSMENT AND PLAN - Acute exacerbation of COPD-likely secondary to bronchitis but not clear if viral or bacterial. Did use noninvasive ventilation overnight but off this morning. Slowly improving. Still significantly impaired airflow but a little better today. No fevers. Seems to be turning the corner. -Continue steroids, changed to every 8 hours -Nebulizers every 4 hours scheduled -Nebulizers every 2 hours as needed -Continue noninvasive ventilation as needed -Monitor end-tidal CO2 -Follow-up sputum culture -Empiric ceftriaxone and doxycycline -Continue home medications for COPD -Lorazepam as needed for anxiety while dependent on the NIPPV Severe COPD-oxygen dependent at baseline with significant supplemental oxygen requirements. Coronary artery disease-history of [place]. No chest pain. -Continue medical management Maintenance issues - - DVT prophylaxis -mechanical - GI prophylaxis -PPI with high dose steroids - Nutrition -full liquids until respiratory status stabilizes - Bello catheter -not indicated CODE STATUS -patient wishes to be full code Disposition -I would anticipate discharge home after the hospital stay Aly Morales M.D.
[2019-07-26] MEDS: Dextrose 5%-0.9% NaCl 1,000 ML IV SCH (09:04)
[2019-07-26] MEDS: cefTRIAXone 1 GM in Sodium Chloride 0.9% 50 ML IV SCH ×2 (09:56→09:57)
[2019-07-26] MEDS ORDERED: Alum Hydrox/Mag Hydrox/Simeth 15 ML, Lidocaine 2% 15 ML PO ONE ×2 (15:17)
[2019-07-26] MEDS ORDERED: Morphine 2 MG/ML SYRINGE IVPUSH ONE (15:19)
[2019-07-26] MEDS: Mirtazapine 15 MG Tab PO SCH (21:20)
[2019-07-26] MEDS: atorvaSTATin 20 MG Tab PO SCH (21:20)
[2019-07-27] MEDS: Albuterol/Ipratropium 3.0-0.5 MG/3 ML Neb Soln NEB SCH ×6 (02:57→22:38)
[2019-07-27] MEDS: LORazepam 0.5 MG Tab PO PRN ×3 (03:19→18:47)
[2019-07-27] MEDS: Dextrose 5%-0.9% NaCl 1,000 ML IV SCH (05:48)
[2019-07-27] MEDS: methylPREDNISolone Sodium Succinate 125 MG/2 ML SDV IVPUSH SCH ×3 (05:52→21:16)
[2019-07-27] MEDS: Pantoprazole 40 MG Tab.CR PO SCH (07:23)
[2019-07-27] MEDS: Doxycycline 100 MG in Sodium Chloride 0.9% 100 ML IV SCH ×2 (07:23→20:25)
[2019-07-27] MEDS: Fluticasone-Salmeterol 232-14 MCG Powder Inhalent INH SCH ×2 (07:45→20:30)
[2019-07-27] MEDS: Aspirin 81 MG Tab.EC PO SCH (08:24)
[2019-07-27] MEDS: Metoprolol Tartrate 50 MG Tab PO SCH ×2 (08:25→20:32)
[2019-07-27] MEDS: Lactobacillus Rhamnosus GG (Probiotic) Cap PO SCH ×2 (08:26→20:29)
[2019-07-27] MEDS: Clopidogrel 75 MG Tab PO SCH (08:28)
[2019-07-27] MEDS: cefTRIAXone 1 GM in Sodium Chloride 0.9% 50 ML IV SCH (08:31)
--- NOTE | 2019-07-27 10:09 | PCM.PN ---
- General Info Date of Service: 07/27/19 Subjective Update: Ms. Manrique has been fairly stable since yesterday, continues to require intermittent use of noninvasive positive pressure ventilation. Level of dyspnea seems to be improving and she has only minimal cough at this time. Functional Status: Reports: Tolerating Diet, Urinating - Review of Systems General: Reports: Weakness. Denies: Fever, Chills Pulmonary: Reports: Shortness of Breath, Cough. Denies: Pleuritic Chest Pain, Sputum, Hemoptysis, Wheezing Cardiovascular: Reports: Dyspnea on Exertion. Denies: Chest Pain, Palpitations , Orthopnea, PND, Edema, Lightheadedness Gastrointestinal: Reports: No Symptoms - Patient Data Vitals - Most Recent: Last Vital Signs Temp 98.9 F 07/27/19 07:25 Pulse 100 07/27/19 08:25 Resp 15 07/27/19 07:25 BP 169/83 H 07/27/19 08:25 Pulse Ox 95 07/27/19 08:00 Weight - Most Recent: 114 lb 0.016 oz I&O - Last 24 Hours: Intake & Output 07/26/19 07/27/19 07/27/19 22:59 06:59 14:59 Intake Total 1453 854 480 Output Total 525 1225 650 Balance 928 371 -170 Lab Results Last 24 Hours: Laboratory Results - last 24 hr 07/27/19 Range/Units 05:57 Sodium 149 H (140-148) mmol/L Potassium 3.9 (3.6-5.2) mmol/L Chloride 106 (100-108) mmol/L Carbon Dioxide 37 H (21-32) mmol/L Anion Gap 9.9 (5.0-14.0) mmol/L BUN 15 (7-18) mg/dL Creatinine 0.5 L (0.6-1.0) mg/dL Est Cr Clr Drug Dosing 96.45 mL/min Estimated GFR (MDRD) > 60 (>60) Glucose 138 H (74-106) mg/dL Calcium 8.4 L (8.5-10.1) mg/dL Maycol Results Last 24 Hours: Microbiology 07/24/19 21:22 Gram Stain - Final Sputum - Expectorated Respiratory Culture - Final NORMAL RESPIRATORY DANIELA 2 DAYS Med Orders - Current: Current Medications Acetaminophen (Tylenol) 650 mg PO Q4H PRN PRN Reason: Pain (Mild 1-3)/fever Albuterol/Ipratropium (Duoneb 3.0-0.5 Mg/3 Ml) 3 ml NEB Q4H [facility] Last Admin: 07/27/19 07:29 Dose: 3 ml Aspirin (Halfprin) 81 mg PO DAILY [facility] Last Admin: 07/27/19 08:24 Dose: 81 mg Atorvastatin Calcium (Lipitor) 80 mg PO BEDTIME [facility] Last Admin: 07/26/19 21:20 Dose: 80 mg Benzonatate (Tessalon Perles) 100 mg PO TID PRN PRN Reason: Cough Last Admin: 07/24/19 23:36 Dose: 100 mg Clopidogrel Bisulfate (Plavix) 75 mg PO DAILY [facility] Last Admin: 07/27/19 08:28 Dose: 75 mg Diphenhydramine HCl (Benadryl) 25 mg PO Q4H PRN PRN Reason: itching Doxycycline Hyclate 100 mg/ (Sodium Chloride) 100 mls @ 100 mls/hr IV Q12H [facility] Last Admin: 07/27/19 07:23 Dose: 100 mls/hr Ceftriaxone Sodium 1 gm/ (Sodium Chloride) 50 mls @ 100 mls/hr IV Q24H [facility] Last Admin: 07/27/19 08:31 Dose: 100 mls/hr Lactobacillus Rhamnosus (Culturelle) 1 cap PO BID [facility] Last Admin: 07/27/19 08:26 Dose: 1 cap Levalbuterol HCl (Xopenex) 1.25 mg NEB Q1H PRN PRN Reason: shortness of breath/wheezing Last Admin: 07/26/19 14:22 Dose: 1.25 mg Lorazepam (Ativan) 0.5 mg IVPUSH Q4H PRN PRN Reason: Nausea/Vomiting Lorazepam (Ativan) 0.5 mg IV Q4H PRN PRN Reason: Anxiety Last Admin: 07/26/19 01:30 Dose: 0.5 mg Lorazepam (Ativan) 0.5 mg PO Q4H PRN PRN Reason: Anxiety Last Admin: 07/27/19 03:19 Dose: 0.5 mg Magnesium Hydroxide (Milk Of Magnesia) 30 ml PO Q12H PRN PRN Reason: Constipation Methylprednisolone Sodium Succinate (Solu-Medrol) 62.5 mg IVPUSH Q8H [facility] Last Admin: 07/27/19 05:52 Dose: 62.5 mg Metoprolol Tartrate (Lopressor) 50 mg PO BID [facility] Last Admin: 07/27/19 08:25 Dose: 50 mg Mirtazapine (Remeron) 30 mg PO BEDTIME [facility] Last Admin: 07/26/19 21:20 Dose: 30 mg Morphine Sulfate (Morphine) 2 mg IVPUSH Q2H PRN PRN Reason: Pain (Severe 7-10)/Air Hunger Last Admin: 07/26/19 18:38 Dose: 2 mg Ondansetron HCl (Zofran Odt) 4 mg PO Q6H PRN PRN Reason: Nausea able to take PO Ondansetron HCl (Zofran) 4 mg IV Q6H PRN PRN Reason: Nausea/Vomiting Pantoprazole Sodium (Protonix) 40 mg PO ACBREAKFAST [facility] Last Admin: 07/27/19 07:23 Dose: 40 mg Fluticasone/Salmeterol (Fluticasone-Salmeterol 232-14 Mcg Powder Inha) 1 puff INH BIDRT [facility] Last Admin: 07/26/19 21:21 Dose: 1 puff Senna/Docusate Sodium (Senna Plus) 1 tab PO BID PRN PRN Reason: Constipation Sodium Chloride (Saline Flush) 10 ml FLUSH ASDIRECTED PRN PRN Reason: Keep Vein Open Last Admin: 07/24/19 06:02 Dose: 10 ml Tizanidine HCl (Zanaflex) 4 mg PO Q8H PRN PRN Reason: muscle spasms Discontinued Medications Albuterol (Proventil Neb Soln) 2.5 mg NEB Q2H PRN PRN Reason: Shortness Of Breath/wheezing Last Admin: 07/25/19 09:33 Dose: 2.5 mg Albuterol/Ipratropium (Duoneb 3.0-0.5 Mg/3 Ml) 3 ml NEB QIDRT [facility] Last Admin: 07/25/19 07:15 Dose: 3 ml Al Hydroxide/Mg Hydroxide 15 (ml/ Lidocaine HCl 15 ml) 0 ml PO ONETIME ONE Stop: 07/26/19 15:18 Last Admin: 07/26/19 15:31 Dose: 15 ml Ceftriaxone Sodium 1 gm/ (Sodium Chloride) 50 mls @ 100 mls/hr IV Q24H [facility] Stop: 07/24/19 11:00 Last Admin: 07/24/19 09:16 Dose: 100 mls/hr Sodium Chloride (Normal Saline) 1,000 mls @ 75 mls/hr IV ASDIRECTED [facility] Last Admin: 07/24/19 20:07 Dose: 75 mls/hr Dextrose/Sodium Chloride (Dextrose 5%-Normal Saline) 1,000 mls @ 50 mls/hr IV ASDIRECTED [facility] Last Admin: 07/27/19 05:48 Dose: 50 mls/hr Lorazepam (Ativan) 0.25 mg IVPUSH ONETIME ONE Stop: 07/24/19 05:58 Last Admin: 07/24/19 06:01 Dose: 0.25 mg Lorazepam (Ativan) 0.25 mg IVPUSH ONETIME ONE Stop: 07/24/19 06:42 Last Admin: 07/24/19 06:57 Dose: 0.25 mg Methylprednisolone Sodium Succinate (Solu-Medrol) 125 mg IVPUSH ONETIME ONE Stop: 07/24/19 05:25 Last Admin: 07/24/19 05:37 Dose: 125 mg Methylprednisolone Sodium Succinate (Solu-Medrol) 62.5 mg IVPUSH Q6H [facility] Last Admin: 07/26/19 07:56 Dose: 62.5 mg Morphine Sulfate (Morphine) 2 mg IVPUSH ONETIME ONE Stop: 07/26/19 15:20 Last Admin: 07/26/19 15:35 Dose: 2 mg - Exam Quality Assessment: Supplemental Oxygen, DVT Prophylaxis General: Alert, Oriented, Cooperative, Moderate Distress Lungs: Decreased Breath Sounds. No: Rales, Rhonchi, Rub, Wheezing Cardiovascular: Regular Rhythm, No Murmurs, Tachycardia GI/Abdominal Exam: Soft, Non-Tender, No Organomegaly, No Distention Extremities: Non-Tender, No Pedal Edema Sepsis Event Note - Evaluation Sepsis Screening Result: No Definite Risk - Focused Exam Vital Signs: Vital Signs Temp Pulse Pulse Resp BP BP Pulse Ox 07/27/19 08:25 100 169/83 H 07/27/19 08:00 95 07/27/19 07:29 78 07/27/19 07:25 98.9 F 88 15 167/129 H 98 07/27/19 06:00 16 166/79 H 96 07/27/19 04:00 96.6 F 14 171/80 H 96 07/27/19 02:00 20 122/64 96 07/27/19 01:00 20 128/59 L 95 07/27/19 00:00 98.9 F 20 166/77 H 95 Date Exam was Performed: 07/27/19 Time Exam was Performed: 10:05 - Problem List Review Problem List Initiated/Reviewed/Updated: Yes - My Orders Last 24 Hours: My Active Orders 07/27/19 08:52 Convert IV to Saline Lock [OM.PC] Routine 07/28/19 05:00 BASIC METABOLIC PANEL,BMP [CHEM] Timed - Plan Plan:: ASSESSMENT AND PLAN - Acute exacerbation of COPD-likely secondary to bronchitis but not clear if viral or bacterial. Continued slow improvement over the last 24 hours with modest improvement in shortness of breath, minimal cough. Continues to require regular use of noninvasive positive pressure ventilation -Continue steroids -Nebulizers every 4 hours scheduled -Nebulizers every 2 hours as needed -Continue noninvasive ventilation as needed -Monitor end-tidal CO2 -Follow-up sputum culture -Empiric ceftriaxone and doxycycline -Continue home medications for COPD -Lorazepam as needed for anxiety while dependent on the NIPPV -Evaluate to see if she is a candidate for trilogy home ventilator Severe COPD-oxygen dependent at baseline with significant supplemental oxygen requirements. Coronary artery disease-history of [place]. No chest pain. -Continue medical management Maintenance issues - - DVT prophylaxis -mechanical - GI prophylaxis -PPI with high dose steroids - Nutrition -full liquids until respiratory status stabilizes - Bello catheter -not indicated CODE STATUS -patient wishes to be full code Disposition -I would anticipate discharge home after the hospital stay
[2019-07-27] MEDS: atorvaSTATin 20 MG Tab PO SCH (20:31)
[2019-07-27] MEDS: Mirtazapine 15 MG Tab PO SCH (20:33)
[2019-07-27] MEDS: Morphine 2 MG/ML SYRINGE IVPUSH PRN (21:36)
[2019-07-28] MEDS: Albuterol/Ipratropium 3.0-0.5 MG/3 ML Neb Soln NEB SCH ×5 (02:27→19:09)
[2019-07-28] MEDS: Morphine 2 MG/ML SYRINGE IVPUSH PRN ×2 (02:40→19:35)
[2019-07-28] MEDS: methylPREDNISolone Sodium Succinate 125 MG/2 ML SDV IVPUSH SCH (05:56)
[2019-07-28] MEDS: Fluticasone-Salmeterol 232-14 MCG Powder Inhalent INH SCH ×2 (07:02→20:19)
[2019-07-28] MEDS: Aspirin 81 MG Tab.EC PO SCH (08:17)
[2019-07-28] MEDS: Lactobacillus Rhamnosus GG (Probiotic) Cap PO SCH ×2 (08:17→20:19)
[2019-07-28] MEDS: Metoprolol Tartrate 50 MG Tab PO SCH ×2 (08:17→20:20)
[2019-07-28] MEDS: Pantoprazole 40 MG Tab.CR PO SCH (08:17)
[2019-07-28] MEDS: Clopidogrel 75 MG Tab PO SCH (08:17)
[2019-07-28] MEDS: Doxycycline 100 MG in Sodium Chloride 0.9% 100 ML IV SCH ×2 (08:17→20:24)
--- NOTE | 2019-07-28 10:24 | PCM.PN ---
- General Info Date of Service: 07/28/19 Subjective Update: Ms. Crooks experience further modest improvement in shortness of breath over the last 24 hours. This morning is on nasal cannula, 4 L/min, comfortable and able to converse. Vital signs have been stable and she has remained afebrile. Functional Status: Reports: Tolerating Diet, Urinating - Review of Systems General: Reports: Weakness, Malaise. Denies: Fever, Chills Pulmonary: Reports: Shortness of Breath, Cough. Denies: Pleuritic Chest Pain, Sputum, Hemoptysis, Wheezing Cardiovascular: Reports: Dyspnea on Exertion. Denies: Chest Pain, Palpitations , Orthopnea, PND, Edema, Lightheadedness Gastrointestinal: Reports: No Symptoms - Patient Data Vitals - Most Recent: Last Vital Signs Temp 98.4 F 07/28/19 08:00 Pulse 84 07/28/19 08:17 Resp 17 07/28/19 10:00 BP 169/87 H 07/28/19 10:00 Pulse Ox 94 L 07/28/19 10:00 Weight - Most Recent: 114 lb 0.016 oz I&O - Last 24 Hours: Intake & Output 07/27/19 07/28/19 07/28/19 22:59 06:59 14:59 Intake Total 760 100 Output Total 1000 400 Balance -240 -300 Lab Results Last 24 Hours: Laboratory Results - last 24 hr 07/28/19 Range/Units 04:35 Sodium 148 (140-148) mmol/L Potassium 3.8 (3.6-5.2) mmol/L Chloride 106 (100-108) mmol/L Carbon Dioxide 38 H (21-32) mmol/L Anion Gap 7.8 (5.0-14.0) mmol/L BUN 19 H (7-18) mg/dL Creatinine 0.6 (0.6-1.0) mg/dL Est Cr Clr Drug Dosing 80.38 mL/min Estimated GFR (MDRD) > 60 (>60) Glucose 127 H (74-106) mg/dL Calcium 8.3 L (8.5-10.1) mg/dL [place]col Results Last 24 Hours: Microbiology 07/24/19 21:22 Gram Stain - Final Sputum - Expectorated Respiratory Culture - Final NORMAL RESPIRATORY DANIELA 2 DAYS Med Orders - Current: Current Medications Acetaminophen (Tylenol) 650 mg PO Q4H PRN PRN Reason: Pain (Mild 1-3)/fever Albuterol/Ipratropium (Duoneb 3.0-0.5 Mg/3 Ml) 3 ml NEB Q4H [facility] Last Admin: 07/28/19 07:02 Dose: 3 ml Aspirin (Halfprin) 81 mg PO DAILY [facility] Last Admin: 07/28/19 08:17 Dose: 81 mg Atorvastatin Calcium (Lipitor) 80 mg PO BEDTIME [facility] Last Admin: 07/27/19 20:31 Dose: 80 mg Benzonatate (Tessalon Perles) 100 mg PO TID PRN PRN Reason: Cough Last Admin: 07/24/19 23:36 Dose: 100 mg Clopidogrel Bisulfate (Plavix) 75 mg PO DAILY [facility] Last Admin: 07/28/19 08:17 Dose: 75 mg Diphenhydramine HCl (Benadryl) 25 mg PO Q4H PRN PRN Reason: itching Doxycycline Hyclate 100 mg/ (Sodium Chloride) 100 mls @ 100 mls/hr IV Q12H [facility] Last Admin: 07/28/19 08:17 Dose: 100 mls/hr Ceftriaxone Sodium 1 gm/ (Sodium Chloride) 50 mls @ 100 mls/hr IV Q24H [facility] Last Admin: 07/27/19 08:31 Dose: 100 mls/hr Lactobacillus Rhamnosus (Culturelle) 1 cap PO BID [facility] Last Admin: 07/28/19 08:17 Dose: 1 cap Levalbuterol HCl (Xopenex) 1.25 mg NEB Q1H PRN PRN Reason: shortness of breath/wheezing Last Admin: 07/26/19 14:22 Dose: 1.25 mg Lorazepam (Ativan) 0.5 mg IVPUSH Q4H PRN PRN Reason: Nausea/Vomiting Lorazepam (Ativan) 0.5 mg IV Q4H PRN PRN Reason: Anxiety Last Admin: 07/26/19 01:30 Dose: 0.5 mg Lorazepam (Ativan) 0.5 mg PO Q4H PRN PRN Reason: Anxiety Last Admin: 07/27/19 18:47 Dose: 0.5 mg Magnesium Hydroxide (Milk Of Magnesia) 30 ml PO Q12H PRN PRN Reason: Constipation Methylprednisolone Sodium Succinate (Solu-Medrol) 40 mg IVPUSH Q12H [facility] Metoprolol Tartrate (Lopressor) 50 mg PO BID [facility] Last Admin: 07/28/19 08:17 Dose: 50 mg Mirtazapine (Remeron) 30 mg PO BEDTIME [facility] Last Admin: 07/27/19 20:33 Dose: 30 mg Morphine Sulfate (Morphine) 2 mg IVPUSH Q2H PRN PRN Reason: Pain (Severe 7-10)/Air Hunger Last Admin: 07/28/19 02:40 Dose: 2 mg Ondansetron HCl (Zofran Odt) 4 mg PO Q6H PRN PRN Reason: Nausea able to take PO Ondansetron HCl (Zofran) 4 mg IV Q6H PRN PRN Reason: Nausea/Vomiting Pantoprazole Sodium (Protonix) 40 mg PO ACBREAKFAST [facility] Last Admin: 07/28/19 08:17 Dose: 40 mg Fluticasone/Salmeterol (Fluticasone-Salmeterol 232-14 Mcg Powder Inha) 1 puff INH BIDRT [facility] Last Admin: 07/28/19 07:02 Dose: 1 puff Senna/Docusate Sodium (Senna Plus) 1 tab PO BID PRN PRN Reason: Constipation Sodium Chloride (Saline Flush) 10 ml FLUSH ASDIRECTED PRN PRN Reason: Keep Vein Open Last Admin: 07/24/19 06:02 Dose: 10 ml Tizanidine HCl (Zanaflex) 4 mg PO Q8H PRN PRN Reason: muscle spasms Discontinued Medications Albuterol (Proventil Neb Soln) 2.5 mg NEB Q2H PRN PRN Reason: Shortness Of Breath/wheezing Last Admin: 07/25/19 09:33 Dose: 2.5 mg Albuterol/Ipratropium (Duoneb 3.0-0.5 Mg/3 Ml) 3 ml NEB QIDRT [facility] Last Admin: 07/25/19 07:15 Dose: 3 ml Al Hydroxide/Mg Hydroxide 15 (ml/ Lidocaine HCl 15 ml) 0 ml PO ONETIME ONE Stop: 07/26/19 15:18 Last Admin: 07/26/19 15:31 Dose: 15 ml Ceftriaxone Sodium 1 gm/ (Sodium Chloride) 50 mls @ 100 mls/hr IV Q24H [facility] Stop: 07/24/19 11:00 Last Admin: 07/24/19 09:16 Dose: 100 mls/hr Sodium Chloride (Normal Saline) 1,000 mls @ 75 mls/hr IV ASDIRECTED [facility] Last Admin: 07/24/19 20:07 Dose: 75 mls/hr Dextrose/Sodium Chloride (Dextrose 5%-Normal Saline) 1,000 mls @ 50 mls/hr IV ASDIRECTED [facility] Last Admin: 07/27/19 05:48 Dose: 50 mls/hr Lorazepam (Ativan) 0.25 mg IVPUSH ONETIME ONE Stop: 07/24/19 05:58 Last Admin: 07/24/19 06:01 Dose: 0.25 mg Lorazepam (Ativan) 0.25 mg IVPUSH ONETIME ONE Stop: 07/24/19 06:42 Last Admin: 07/24/19 06:57 Dose: 0.25 mg Methylprednisolone Sodium Succinate (Solu-Medrol) 125 mg IVPUSH ONETIME ONE Stop: 07/24/19 05:25 Last Admin: 07/24/19 05:37 Dose: 125 mg Methylprednisolone Sodium Succinate (Solu-Medrol) 62.5 mg IVPUSH Q6H [facility] Last Admin: 07/26/19 07:56 Dose: 62.5 mg Methylprednisolone Sodium Succinate (Solu-Medrol) 62.5 mg IVPUSH Q8H [facility] Last Admin: 07/28/19 05:56 Dose: 62.5 mg Morphine Sulfate (Morphine) 2 mg IVPUSH ONETIME ONE Stop: 07/26/19 15:20 Last Admin: 07/26/19 15:35 Dose: 2 mg - Exam Quality Assessment: Supplemental Oxygen, DVT Prophylaxis General: Alert, Oriented, Cooperative, Moderate Distress Lungs: Decreased Breath Sounds. No: Rales, Rhonchi, Rub, Wheezing Cardiovascular: Regular Rate, Regular Rhythm, No Murmurs GI/Abdominal Exam: Soft, Non-Tender, No Organomegaly, No Distention Extremities: Non-Tender, No Pedal Edema Sepsis Event Note - Evaluation Sepsis Screening Result: No Definite Risk - Focused Exam Vital Signs: Vital Signs Temp Pulse Pulse Resp BP BP Pulse Ox 07/28/19 10:00 17 169/87 H 94 L 07/28/19 08:17 84 173/83 H 07/28/19 08:00 98.4 F 15 173/83 H 95 02/05/20 07:02 91 07/28/19 06:00 73 22 H 158/83 H 96 07/28/19 02:00 97 22 H 143/73 H 96 07/28/19 00:00 76 14 136/72 96 Date Exam was Performed: 07/28/19 Time Exam was Performed: 10:17 - Problem List Review Problem List Initiated/Reviewed/Updated: Yes - My Orders Last 24 Hours: My Active Orders 07/28/19 10:30 methylPREDNISolone Sod Succ [Solu-MEDROL] 40 mg IVPUSH Q12H - Plan Plan:: ASSESSMENT AND PLAN - Acute on chronic exacerbation of COPD-likely secondary to bronchitis but not clear if viral or bacterial. Continued slow improvement over the last 24 hours with modest improvement in shortness of breath, minimal cough. Continues to intermittently require use of noninvasive positive pressure ventilation. She does have acute on chronic exacerbation of her severe underlying COPD. She requires a home noninvasive ventilator because of her severe COPD. Home ventilator is required to decrease the work of breathing improve her pulmonary status, interruption of the noninvasive ventilatory support could lead to serious harm including decline in health status and increased risk of CO2 retention. The home ventilator will hopefully decrease frequency of hospital admissions. -Continue steroids -Nebulizers every 4 hours scheduled -Nebulizers every 2 hours as needed -Continue noninvasive ventilation as needed -Monitor end-tidal CO2 -Follow-up sputum culture -Empiric ceftriaxone and doxycycline -Continue home medications for COPD -Lorazepam as needed for anxiety while dependent on the NIPPV -Plan for discharged home with trilogy home ventilator Severe COPD-oxygen dependent at baseline with significant supplemental oxygen requirements. Coronary artery disease-history of [place]. No chest pain. -Continue medical management Maintenance issues - - DVT prophylaxis -mechanical - GI prophylaxis -PPI with high dose steroids - Nutrition -full liquids until respiratory status stabilizes - Belol catheter -not indicated CODE STATUS -patient wishes to be full code, is agreeable to seeing [employer] Sebastian Maria today to discuss CODE STATUS and advanced directive. Disposition -I would anticipate discharge home after the hospital stay
[2019-07-28] MEDS: cefTRIAXone 1 GM in Sodium Chloride 0.9% 50 ML IV SCH (10:32)
[2019-07-28] MEDS: LORazepam 0.5 MG Tab PO PRN (12:27)
[2019-07-28] MEDS: Clotrimazole 10 MG Troche PO SCH ×3 (16:33→21:33)
[2019-07-28] MEDS: methylPREDNISolone Sodium Succinate 40 MG/1 ML SDV IVPUSH SCH (17:34)
[2019-07-28] MEDS ORDERED: Clotrimazole 10 MG Troche PO SCH (18:00)
[2019-07-28] MEDS: Benzonatate 100 MG Cap PO PRN (19:36)
[2019-07-28] MEDS: atorvaSTATin 20 MG Tab PO SCH (20:19)
[2019-07-28] MEDS: Mirtazapine 15 MG Tab PO SCH (20:21)
[2019-07-29] MEDS: Albuterol/Ipratropium 3.0-0.5 MG/3 ML Neb Soln NEB SCH ×7 (00:05→23:02)
[2019-07-29] MEDS: Morphine 2 MG/ML SYRINGE IVPUSH PRN ×5 (00:32→21:52)
[2019-07-29] MEDS: LORazepam 0.5 MG Tab PO PRN ×3 (04:32→19:51)
[2019-07-29] MEDS: methylPREDNISolone Sodium Succinate 40 MG/1 ML SDV IVPUSH SCH (05:25)
[2019-07-29] MEDS: Clotrimazole 10 MG Troche PO SCH ×5 (05:26→21:36)
[2019-07-29] MEDS: Doxycycline 100 MG in Sodium Chloride 0.9% 100 ML IV SCH (08:33)
[2019-07-29] MEDS: Pantoprazole 40 MG Tab.CR PO SCH (09:18)
[2019-07-29] MEDS: Fluticasone-Salmeterol 232-14 MCG Powder Inhalent INH SCH ×2 (09:18→21:36)
[2019-07-29] MEDS: Lactobacillus Rhamnosus GG (Probiotic) Cap PO SCH ×2 (09:19→21:36)
[2019-07-29] MEDS: Aspirin 81 MG Tab.EC PO SCH (09:19)
[2019-07-29] MEDS: Metoprolol Tartrate 50 MG Tab PO SCH ×2 (09:19→21:36)
[2019-07-29] MEDS: Clopidogrel 75 MG Tab PO SCH (09:20)
--- NOTE | 2019-07-29 09:42 | PCM.PN ---
- General Info Date of Service: 07/29/19 Subjective Update: Ms. Crooks table since yesterday, further improvement in oxygenation, no significant cough at this time. She feels less short of breath and has been able to be somewhat more active. Functional Status: Reports: Tolerating Diet, Urinating - Review of Systems General: Reports: Weakness, Malaise. Denies: Fever, Chills Pulmonary: Reports: Shortness of Breath. Denies: Pleuritic Chest Pain, Cough, Sputum, Hemoptysis, Wheezing Cardiovascular: Reports: Dyspnea on Exertion. Denies: Chest Pain, Palpitations , Orthopnea, PND, Edema, Lightheadedness Gastrointestinal: Reports: No Symptoms - Patient Data Vitals - Most Recent: Last Vital Signs Temp 97.8 F 07/29/19 08:00 Pulse 83 07/29/19 09:19 Resp 25 H 07/29/19 08:00 BP 133/69 07/29/19 09:19 Pulse Ox 93 L 07/29/19 09:30 Weight - Most Recent: 114 lb 0.016 oz I&O - Last 24 Hours: Intake & Output 07/28/19 07/29/19 07/29/19 22:59 06:59 14:59 Intake Total 360 100 Output Total 900 Balance -540 100 Med Orders - Current: Current Medications Acetaminophen (Tylenol) 650 mg PO Q4H PRN PRN Reason: Pain (Mild 1-3)/fever Albuterol/Ipratropium (Duoneb 3.0-0.5 Mg/3 Ml) 3 ml NEB Q4H [facility] Last Admin: 07/29/19 06:58 Dose: 3 ml Aspirin (Halfprin) 81 mg PO DAILY [facility] Last Admin: 07/29/19 09:19 Dose: 81 mg Atorvastatin Calcium (Lipitor) 80 mg PO BEDTIME [facility] Last Admin: 07/28/19 20:19 Dose: 80 mg Benzonatate (Tessalon Perles) 100 mg PO TID PRN PRN Reason: Cough Last Admin: 07/28/19 19:36 Dose: 100 mg Clopidogrel Bisulfate (Plavix) 75 mg PO DAILY [facility] Last Admin: 07/29/19 09:20 Dose: 75 mg Clotrimazole (Mycelex) 10 mg PO 5XDAY [facility] Last Admin: 07/29/19 09:20 Dose: 10 mg Diphenhydramine HCl (Benadryl) 25 mg PO Q4H PRN PRN Reason: itching Doxycycline Hyclate (Vibramycin) 100 mg PO BID [facility] Lactobacillus Rhamnosus (Culturelle) 1 cap PO BID [facility] Last Admin: 07/29/19 09:19 Dose: 1 cap Levalbuterol HCl (Xopenex) 1.25 mg NEB Q1H PRN PRN Reason: shortness of breath/wheezing Last Admin: 07/26/19 14:22 Dose: 1.25 mg Lorazepam (Ativan) 0.5 mg IVPUSH Q4H PRN PRN Reason: Nausea/Vomiting Lorazepam (Ativan) 0.5 mg IV Q4H PRN PRN Reason: Anxiety Last Admin: 07/26/19 01:30 Dose: 0.5 mg Lorazepam (Ativan) 0.5 mg PO Q4H PRN PRN Reason: Anxiety Last Admin: 07/29/19 04:32 Dose: 0.5 mg Magnesium Hydroxide (Milk Of Magnesia) 30 ml PO Q12H PRN PRN Reason: Constipation Metoprolol Tartrate (Lopressor) 50 mg PO BID [facility] Last Admin: 07/29/19 09:19 Dose: 50 mg Mirtazapine (Remeron) 30 mg PO BEDTIME [facility] Last Admin: 07/28/19 20:21 Dose: 30 mg Morphine Sulfate (Morphine) 2 mg IVPUSH Q2H PRN PRN Reason: Pain (Severe 7-10)/Air Hunger Last Admin: 07/29/19 04:31 Dose: 2 mg Ondansetron HCl (Zofran Odt) 4 mg PO Q6H PRN PRN Reason: Nausea able to take PO Ondansetron HCl (Zofran) 4 mg IV Q6H PRN PRN Reason: Nausea/Vomiting Pantoprazole Sodium (Protonix) 40 mg PO ACBREAKFAST [facility] Last Admin: 07/29/19 09:18 Dose: 40 mg Prednisone (Prednisone) 40 mg PO WITHBREAKFAST [facility] Fluticasone/Salmeterol (Fluticasone-Salmeterol 232-14 Mcg Powder Inha) 1 puff INH BIDRT [facility] Last Admin: 07/29/19 09:18 Dose: 1 puff Senna/Docusate Sodium (Senna Plus) 1 tab PO BID PRN PRN Reason: Constipation Sodium Chloride (Saline Flush) 10 ml FLUSH ASDIRECTED PRN PRN Reason: Keep Vein Open Last Admin: 07/24/19 06:02 Dose: 10 ml Tizanidine HCl (Zanaflex) 4 mg PO Q8H PRN PRN Reason: muscle spasms Discontinued Medications Albuterol (Proventil Neb Soln) 2.5 mg NEB Q2H PRN PRN Reason: Shortness Of Breath/wheezing Last Admin: 07/25/19 09:33 Dose: 2.5 mg Albuterol/Ipratropium (Duoneb 3.0-0.5 Mg/3 Ml) 3 ml NEB QIDRT [facility] Last Admin: 07/25/19 07:15 Dose: 3 ml Clotrimazole (Mycelex) 10 mg PO 5XDAY [facility] Al Hydroxide/Mg Hydroxide 15 (ml/ Lidocaine HCl 15 ml) 0 ml PO ONETIME ONE Stop: 07/26/19 15:18 Last Admin: 07/26/19 15:31 Dose: 15 ml Ceftriaxone Sodium 1 gm/ (Sodium Chloride) 50 mls @ 100 mls/hr IV Q24H [facility] Stop: 07/24/19 11:00 Last Admin: 07/24/19 09:16 Dose: 100 mls/hr Doxycycline Hyclate 100 mg/ (Sodium Chloride) 100 mls @ 100 mls/hr IV Q12H [facility] Last Admin: 07/29/19 08:33 Dose: 100 mls/hr Sodium Chloride (Normal Saline) 1,000 mls @ 75 mls/hr IV ASDIRECTED [facility] Last Admin: 07/24/19 20:07 Dose: 75 mls/hr Ceftriaxone Sodium 1 gm/ (Sodium Chloride) 50 mls @ 100 mls/hr IV Q24H [facility] Last Admin: 07/28/19 10:32 Dose: 100 mls/hr Dextrose/Sodium Chloride (Dextrose 5%-Normal Saline) 1,000 mls @ 50 mls/hr IV ASDIRECTED [facility] Last Admin: 07/27/19 05:48 Dose: 50 mls/hr Lorazepam (Ativan) 0.25 mg IVPUSH ONETIME ONE Stop: 07/24/19 05:58 Last Admin: 07/24/19 06:01 Dose: 0.25 mg Lorazepam (Ativan) 0.25 mg IVPUSH ONETIME ONE Stop: 07/24/19 06:42 Last Admin: 07/24/19 06:57 Dose: 0.25 mg Methylprednisolone Sodium Succinate (Solu-Medrol) 125 mg IVPUSH ONETIME ONE Stop: 07/24/19 05:25 Last Admin: 07/24/19 05:37 Dose: 125 mg Methylprednisolone Sodium Succinate (Solu-Medrol) 62.5 mg IVPUSH Q6H [facility] Last Admin: 07/26/19 07:56 Dose: 62.5 mg Methylprednisolone Sodium Succinate (Solu-Medrol) 62.5 mg IVPUSH Q8H [facility] Last Admin: 07/28/19 05:56 Dose: 62.5 mg Methylprednisolone Sodium Succinate (Solu-Medrol) 40 mg IVPUSH Q12H [facility] Last Admin: 07/29/19 05:25 Dose: 40 mg Morphine Sulfate (Morphine) 2 mg IVPUSH ONETIME ONE Stop: 07/26/19 15:20 Last Admin: 07/26/19 15:35 Dose: 2 mg - Exam Quality Assessment: Supplemental Oxygen, DVT Prophylaxis General: Alert, Oriented, Cooperative, Mild Distress Lungs: Decreased Breath Sounds. No: Rales, Rhonchi, Rub, Wheezing Cardiovascular: Regular Rate, Regular Rhythm, No Murmurs GI/Abdominal Exam: Soft, Non-Tender, No Organomegaly, No Distention Extremities: Non-Tender, No Pedal Edema Skin: Warm, Dry Sepsis Event Note - Evaluation Sepsis Screening Result: No Definite Risk - Focused Exam Vital Signs: Vital Signs Temp Pulse Pulse Resp BP BP Pulse Ox 07/29/19 09:30 07/29/19 09:19 83 133/69 07/29/19 08:00 97.8 F 89 25 H 133/69 96 07/29/19 06:58 86 07/29/19 05:29 82 19 136/71 97 07/29/19 04:00 86 22 H 136/71 97 07/29/19 01:14 82 20 135/70 96 07/29/19 00:00 76 18 135/70 97 Pulse Ox 07/29/19 09:30 93 L 07/29/19 09:19 07/29/19 08:00 07/29/19 06:58 07/29/19 05:29 07/29/19 04:00 07/29/19 01:14 07/29/19 00:00 Date Exam was Performed: 07/29/19 Time Exam was Performed: 09:39 - Problem List Review Problem List Initiated/Reviewed/Updated: Yes - My Orders Last 24 Hours: My Active Orders 07/28/19 15:58 Clotrimazole [Mycelex] 10 mg PO 5XDAY 07/28/19 Lunch Regular Diet [DIET] 07/29/19 09:36 Patient Status [ADT] Routine 07/29/19 21:00 Doxycycline [Vibramycin] 100 mg PO BID 07/30/19 08:00 predniSONE 40 mg PO WITHBREAKFAST - Plan Plan:: ASSESSMENT AND PLAN Acute on chronic exacerbation of COPD-likely secondary to bronchitis but not clear if viral or bacterial. There are improvement noted over the last 24 hours with less shortness of breath and improved oxygenation -Transition to oral prednisone 40 mg daily -Nebulizers every 4 hours scheduled -Nebulizers every 2 hours as needed -Continue noninvasive ventilation as needed -Empiric ceftriaxone and doxycycline -Continue home medications for COPD -Lorazepam as needed for anxiety while dependent on the NIPPV -Plan for discharged home with trilogy home ventilator Severe COPD-oxygen dependent at baseline with significant supplemental oxygen requirements. Coronary artery disease-history of NC. No chest pain. 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 Disposition -I would anticipate discharge home after the hospital stay
[2019-07-29] MEDS: cefTRIAXone 1 GM in Sodium Chloride 0.9% 50 ML IV SCH (10:25)
[2019-07-29] MEDS: Levalbuterol HCl 1.25 MG/3 ML Neb NEB PRN (19:51)
[2019-07-29] MEDS: Mirtazapine 15 MG Tab PO SCH (21:36)
[2019-07-29] MEDS: atorvaSTATin 20 MG Tab PO SCH (21:36)
[2019-07-29] MEDS: Doxycycline 100 MG Cap PO SCH (21:36)
[2019-07-30] MEDS: Albuterol/Ipratropium 3.0-0.5 MG/3 ML Neb Soln NEB SCH ×3 (07:01→11:27)
[2019-07-30] MEDS: Fluticasone-Salmeterol 232-14 MCG Powder Inhalent INH SCH (07:01)
[2019-07-30] MEDS: Clotrimazole 10 MG Troche PO SCH ×2 (07:23→10:35)
[2019-07-30] MEDS: Pantoprazole 40 MG Tab.CR PO SCH (07:23)
[2019-07-30] MEDS ORDERED: predniSONE 20 MG Tab PO SCH (08:00)
[2019-07-30] MEDS: Metoprolol Tartrate 50 MG Tab PO SCH (08:18)
[2019-07-30] MEDS: Lactobacillus Rhamnosus GG (Probiotic) Cap PO SCH (08:18)
[2019-07-30] MEDS: Aspirin 81 MG Tab.EC PO SCH (08:18)
[2019-07-30] MEDS: Doxycycline 100 MG Cap PO SCH (08:19)
[2019-07-30] MEDS: Clopidogrel 75 MG Tab PO SCH (08:19)
[2019-07-30 10:50] VITALS: BP 136/96
[2019-07-30] MEDS: LORazepam 0.5 MG Tab PO PRN (10:58)
[2019-07-30 11:28] VITALS: PULSE 87
--- NOTE | 2019-07-30 12:06 | PCM.DCSUM1 ---
Discharge Summary - Hospital Course Brief History: Ms. Crooks is a 59-year-old woman who was admitted through the emergency department with weakness, hypercapnia, and severe shortness of breath , secondary to COPD exacerbation and underlying bronchitis. - Discharge Data Discharge Date: 07/30/19 Discharge Disposition: Home, Self-Care 01 Condition: Good - Referral to Home Health Primary Care Physician: PCP None - Discharge Diagnosis/Problem(s) (1) Acute and chronic respiratory failure with hypercapnia SNOMED Code(s): 9034274787775 ICD Code: J96.22 - ACUTE AND CHRONIC RESPIRATORY FAILURE WITH HYPERCAPNIA Status: Acute Current Visit: Yes (2) COPD with exacerbation SNOMED Code(s): 059643474 ICD Code: J44.1 - CHRONIC OBSTRUCTIVE PULMONARY DISEASE W (ACUTE) EXACERBATION Status: Acute Current Visit: Yes (3) Acute bronchitis SNOMED Code(s): 89824723 ICD Code: J20.9 - ACUTE BRONCHITIS, UNSPECIFIED Status: Suspected Current Visit: Yes Qualifiers: Bronchitis organism: unspecified organism Qualified Code(s): J20.9 - Acute bronchitis, unspecified - Patient Summary/Data Consults: Consultations 07/26/19 08:58 PT Evaluation and Treatment [CONS] Routine Please Evaluate and Treat. PT Reason for Consult: Strengthening This query below is only for informational purposes and is not editable. Admission Diagnosis/Problem: Acute exacerbation of chronic obstructive airways disease Hospital Course: Ms. Crooks presented to the emergency room by ambulance with acute and progressive shortness of breath. She has a known history of severe COPD and uses oxygen 4 L/min via nasal cannula at baseline. She reports significant worsening of her chronic dyspnea over the past couple of days. She is now short of breath even at rest. She does not have much of a cough. She does report mild achy pain in the lower part of her chest that radiates through to her back. This is worse with deep breathing. She has not taken anything to make it feel better. This is relatively mild and stable for the past day. No obvious fevers or chills. She arrived to the emergency room on CPAP in the ambulance. She was transitioned to noninvasive positive pressure ventilation in the emergency room. She has received Solu-Medrol. Chest x-ray was clear. She has evidence to support acute exacerbation of COPD probably secondary to a bronchitis. She is not currently febrile. She does have evidence for CO2 retention on ABGs. She will be admitted to the intensive care unit for further management with noninvasive positive pressure ventilation dependence at this time. On admission she was felt to have acute on chronic respiratory failure with hypoxia and hypercapnia. She was started on IV antibiotic therapy with doxycycline and ceftriaxone for management of bronchitis. She received nebulizer therapy and IV Solu-Medrol. Over the next several days of hospitalization she experienced slow improvement in her respiratory status and was close to baseline at the time of discharge. We did have discussions concerning advanced directive, she had not made any definitive decisions by the time of discharge. She does have all the written information for this will be considering it further after discharge. Activity will be as tolerated and she will resume her usual diet. Because of her severe respiratory compromise with this episode of acute on chronic respiratory failure she will be discharged [facility] which will hopefully stabilize things and decrease need for hospitalization. Follow-up appointment will be scheduled with her primary care provider within 1 week. Steroid therapy will be discontinued at the time of discharge, she will be discharged home with an additional 2 days of oral antibiotic therapy with doxycycline. - Patient Instructions Diet: Usual Diet as Tolerated Activity: As Tolerated Other/Special Instructions: Please schedule follow-up appointment with primary care provider within 1 week. - Discharge Plan *PRESCRIPTION DRUG MONITORING PROGRAM REVIEWED*: Not Applicable *COPY OF PRESCRIPTION DRUG MONITORING REPORT IN PATIENT NICHOLE: Not Applicable Prescriptions/Med Rec: Doxycycline [Vibramycin] 100 mg PO BID #4 cap Home Medications: Home Meds Albuterol Sulfate [Proair Hfa] 2 puff INH QID 10/12/14 [History] Albuterol [Proventil Neb Soln] 1 vial INH QID PRN 10/12/14 [History] Aspirin [Halfprin] 81 mg PO DAILY 10/12/14 [History] Cholecalciferol (Vitamin D3) [Vitamin D3] 1,000 unit PO DAILY 10/12/14 [History] Clopidogrel [Plavix] 75 mg PO DAILY 10/12/14 [History] Mirtazapine [Remeron] 30 mg PO BEDTIME 10/12/14 [History] Nitroglycerin [Nitrostat] 1 tab SL ASDIRECTED 10/12/14 [History] Tiotropium [Spiriva HandiHaler] 18 mcg INH DAILY 04/22/15 [History] tiZANidine HCl [Zanaflex] 4 mg PO Q8H PRN 10/12/14 [History] atorvaSTATin [Lipitor] 80 mg PO BEDTIME 09/20/17 [History] Metoprolol Tartrate 50 mg PO BID 01/06/19 [History] Budesonide/Formoterol [Symbicort 160-4.5 MCG] 2 puff INH BID 03/02/19 [History] Diclofenac Sodium 4 gm TOP QID PRN 07/24/19 [History] Doxycycline [Vibramycin] 100 mg PO BID #4 cap 07/30/19 [Rx] Referrals: PCP,None [Primary Care Provider] - - Discharge Summary/Plan Comment DC Time >30 min.: No - Patient Data Vitals - Most Recent: Last Vital Signs Temp 97.8 F 07/30/19 10:49 Pulse 87 07/30/19 11:28 Resp 20 07/30/19 10:49 BP 136/96 H 07/30/19 10:49 Pulse Ox 91 L 07/30/19 10:49 Weight - Most Recent: 114 lb 0.016 oz I&O - Last 24 hours: Intake & Output 07/29/19 07/30/19 07/30/19 22:59 06:59 14:59 Intake Total 300 Balance 300 Med Orders - Current: Current Medications Acetaminophen (Tylenol) 650 mg PO Q4H PRN PRN Reason: Pain (Mild 1-3)/fever Albuterol/Ipratropium (Duoneb 3.0-0.5 Mg/3 Ml) 3 ml NEB Q4H [facility] Last Admin: 07/30/19 11:27 Dose: 3 ml Aspirin (Halfprin) 81 mg PO DAILY [facility] Last Admin: 07/30/19 08:18 Dose: 81 mg Atorvastatin Calcium (Lipitor) 80 mg PO BEDTIME [facility] Last Admin: 07/29/19 21:36 Dose: 80 mg Benzonatate (Tessalon Perles) 100 mg PO TID PRN PRN Reason: Cough Last Admin: 07/28/19 19:36 Dose: 100 mg Clopidogrel Bisulfate (Plavix) 75 mg PO DAILY [facility] Last Admin: 07/30/19 08:19 Dose: 75 mg Clotrimazole (Mycelex) 10 mg PO 5XDAY [facility] Last Admin: 07/30/19 10:35 Dose: 10 mg Diphenhydramine HCl (Benadryl) 25 mg PO Q4H PRN PRN Reason: itching Doxycycline Hyclate (Vibramycin) 100 mg PO BID [facility] Last Admin: 07/30/19 08:19 Dose: 100 mg Lactobacillus Rhamnosus (Culturelle) 1 cap PO BID [facility] Last Admin: 07/30/19 08:18 Dose: 1 cap Levalbuterol HCl (Xopenex) 1.25 mg NEB Q1H PRN PRN Reason: shortness of breath/wheezing Last Admin: 07/29/19 19:51 Dose: 1.25 mg Lorazepam (Ativan) 0.5 mg IVPUSH Q4H PRN PRN Reason: Nausea/Vomiting Lorazepam (Ativan) 0.5 mg IV Q4H PRN PRN Reason: Anxiety Last Admin: 07/26/19 01:30 Dose: 0.5 mg Lorazepam (Ativan) 0.5 mg PO Q4H PRN PRN Reason: Anxiety Last Admin: 07/30/19 10:58 Dose: 0.5 mg Magnesium Hydroxide (Milk Of Magnesia) 30 ml PO Q12H PRN PRN Reason: Constipation Last Admin: 07/29/19 15:26 Dose: 30 ml Metoprolol Tartrate (Lopressor) 50 mg PO BID [facility] Last Admin: 07/30/19 08:18 Dose: 50 mg Mirtazapine (Remeron) 30 mg PO BEDTIME [facility] Last Admin: 07/29/19 21:36 Dose: 30 mg Morphine Sulfate (Morphine) 2 mg IVPUSH Q2H PRN PRN Reason: Pain (Severe 7-10)/Air Hunger Last Admin: 07/29/19 21:52 Dose: 2 mg Ondansetron HCl (Zofran Odt) 4 mg PO Q6H PRN PRN Reason: Nausea able to take PO Ondansetron HCl (Zofran) 4 mg IV Q6H PRN PRN Reason: Nausea/Vomiting Pantoprazole Sodium (Protonix) 40 mg PO ACBREAKFAST [facility] Last Admin: 07/30/19 07:23 Dose: 40 mg Prednisone (Prednisone) 40 mg PO WITHBREAKFAST [facility] Last Admin: 07/30/19 08:18 Dose: 40 mg Fluticasone/Salmeterol (Fluticasone-Salmeterol 232-14 Mcg Powder Inha) 1 puff INH BIDRT [facility] Last Admin: 07/30/19 07:01 Dose: 1 puff Senna/Docusate Sodium (Senna Plus) 1 tab PO BID PRN PRN Reason: Constipation Last Admin: 07/29/19 19:51 Dose: 1 tab Sodium Chloride (Saline Flush) 10 ml FLUSH ASDIRECTED PRN PRN Reason: Keep Vein Open Last Admin: 07/24/19 06:02 Dose: 10 ml Tizanidine HCl (Zanaflex) 4 mg PO Q8H PRN PRN Reason: muscle spasms Discontinued Medications Albuterol (Proventil Neb Soln) 2.5 mg NEB Q2H PRN PRN Reason: Shortness Of Breath/wheezing Last Admin: 07/25/19 09:33 Dose: 2.5 mg Albuterol/Ipratropium (Duoneb 3.0-0.5 Mg/3 Ml) 3 ml NEB QIDRT [facility] Last Admin: 07/25/19 07:15 Dose: 3 ml Clotrimazole (Mycelex) 10 mg PO 5XDAY [facility] Al Hydroxide/Mg Hydroxide 15 (ml/ Lidocaine HCl 15 ml) 0 ml PO ONETIME ONE Stop: 07/26/19 15:18 Last Admin: 07/26/19 15:31 Dose: 15 ml Ceftriaxone Sodium 1 gm/ (Sodium Chloride) 50 mls @ 100 mls/hr IV Q24H [facility] Stop: 07/24/19 11:00 Last Admin: 07/24/19 09:16 Dose: 100 mls/hr Doxycycline Hyclate 100 mg/ (Sodium Chloride) 100 mls @ 100 mls/hr IV Q12H [facility] Last Admin: 07/29/19 08:33 Dose: 100 mls/hr Sodium Chloride (Normal Saline) 1,000 mls @ 75 mls/hr IV ASDIRECTED [facility] Last Admin: 07/24/19 20:07 Dose: 75 mls/hr Ceftriaxone Sodium 1 gm/ (Sodium Chloride) 50 mls @ 100 mls/hr IV Q24H [facility] Last Admin: 07/29/19 10:25 Dose: Not Given Dextrose/Sodium Chloride (Dextrose 5%-Normal Saline) 1,000 mls @ 50 mls/hr IV ASDIRECTED [facility] Last Admin: 07/27/19 05:48 Dose: 50 mls/hr Lorazepam (Ativan) 0.25 mg IVPUSH ONETIME ONE Stop: 07/24/19 05:58 Last Admin: 07/24/19 06:01 Dose: 0.25 mg Lorazepam (Ativan) 0.25 mg IVPUSH ONETIME ONE Stop: 07/24/19 06:42 Last Admin: 07/24/19 06:57 Dose: 0.25 mg Methylprednisolone Sodium Succinate (Solu-Medrol) 125 mg IVPUSH ONETIME ONE Stop: 07/24/19 05:25 Last Admin: 07/24/19 05:37 Dose: 125 mg Methylprednisolone Sodium Succinate (Solu-Medrol) 62.5 mg IVPUSH Q6H [facility] Last Admin: 07/26/19 07:56 Dose: 62.5 mg Methylprednisolone Sodium Succinate (Solu-Medrol) 62.5 mg IVPUSH Q8H [facility] Last Admin: 07/28/19 05:56 Dose: 62.5 mg Methylprednisolone Sodium Succinate (Solu-Medrol) 40 mg IVPUSH Q12H [facility] Last Admin: 07/29/19 05:25 Dose: 40 mg Morphine Sulfate (Morphine) 2 mg IVPUSH ONETIME ONE Stop: 07/26/19 15:20 Last Admin: 07/26/19 15:35 Dose: 2 mg - Exam General: Reports: Alert, Oriented, Cooperative, Mild Distress Lungs: Reports: Decreased Breath Sounds. Denies: Rales, Rhonchi, Rub, Wheezing Cardiovascular: Reports: Regular Rate, Regular Rhythm, No Murmurs GI/Abdominal Exam: Soft, Non-Tender, No Organomegaly, No Distention Extremities: Non-Tender, No Pedal Edema
[2019-07-30] MEDS: Morphine 2 MG/ML SYRINGE IVPUSH PRN (12:49)
== END 2019-07-30 12:55 | disposition home or self-care (01) | DRG 189 ==
LOC: JP.ED 05:08 → JP.ICU 07:18 → JP.MS 07-29 15:00
PROVIDERS: ADMIT Internal Medicine; ATTEND Hospitalist
PROC: 5A09557 Assistance with Respiratory Ventilation, Greater than 96 Consecutive Hours, Continuous Positive Airway Pressure (ICD-10-PCS; principal; 2019-07-24)
DX: J96.22 Acute and chronic respiratory failure with hypercapnia (principal); J96.12 Chronic respiratory failure with hypercapnia; J44.1 Chronic obstructive pulmonary disease with (acute) exacerbation; C34.90 Malignant neoplasm of unspecified part of unspecified bronchus or lung; Z98.61 Coronary angioplasty status; E87.2 Acidosis; Z79.02 Long term (current) use of antithrombotics/antiplatelets; J44.0 Chronic obstructive pulmonary disease with (acute) lower respiratory infection; J96.21 Acute and chronic respiratory failure with hypoxia; Z79.82 Long term (current) use of aspirin; Z79.899 Other long term (current) drug therapy; Z88.1 Allergy status to other antibiotic agents; J20.9 Acute bronchitis, unspecified; Z99.81 Dependence on supplemental oxygen; Z88.8 Allergy status to other drugs, medicaments and biological substances; H54.7 Unspecified visual loss; Z79.51 Long term (current) use of inhaled steroids; F32.9 Major depressive disorder, single episode, unspecified; I25.2 Old myocardial infarction; Z85.118 Personal history of other malignant neoplasm of bronchus and lung; Z90.89 Acquired absence of other organs; Z98.890 Other specified postprocedural states; I25.10 Atherosclerotic heart disease of native coronary artery without angina pectoris
CPT/HCPCS: 36415; 36600; 71045; 80053; 82803; 84484; 85025; 93005; 93010; 94660; 96374; 96375; 96376; 99284; 99285; J2060 ×2; J2930; 80048; 85027; 86140; 87070; 87205; 94640; 94667; 94762; 97110-GP; 97162-GP; A9270-GY; J0696; J2270; J2920; J3490; J7030; J7050; J7612-GY; J7620-GY

== ENCOUNTER 2019-09-27 15:27 | Emergency (ER) | payer MEDICARE, MEDICAID ==
[2019-09-27 16:00] VITALS: BP 131/73; PULSE 74
--- NOTE | 2019-09-27 16:07 | EDM.PDOC ---
ED HPI GENERAL MEDICAL PROBLEM - General Chief Complaint: Lower Extremity Injury/Pain Stated Complaint: R LEG SWELLING Time Seen by Provider: 09/27/19 15:53 Source of Information: Reports: Patient, Family, RN Notes Reviewed History Limitations: Reports: No Limitations - History of Present Illness INITIAL COMMENTS - FREE TEXT/NARRATIVE: 59-year-old female presents emergency department today with complaint of pain and redness presenting in her right lower extremity and she does have a history of DVT of which she is most concerned this redness and's pain has developed over the last 24 hours she denies any shortness of breath nausea vomiting chest pain, she believes she was on anticoagulation of Coumadin at one time currently just takes Plavix Right Lower Leg Pain Score (Numeric/FACES): 3 - Related Data Allergies Allergy/AdvReac Type Severity Reaction Status Date / Time cefazolin Allergy Itching Verified 07/29/19 09:43 cephalexin Allergy Itching Verified 07/29/19 09:43 paroxetine Allergy Itching Verified 07/24/19 05:54 roflumilast [From Daliresp] Allergy Other Verified 07/24/19 05:54 Home Meds: Home Meds Albuterol Sulfate [Proair Hfa] 2 puff INH QID 10/12/14 [History] Albuterol [Proventil Neb Soln] 1 vial INH QID PRN 10/12/14 [History] Aspirin [Halfprin] 81 mg PO DAILY 10/12/14 [History] Cholecalciferol (Vitamin D3) [Vitamin D3] 1,000 unit PO DAILY 10/12/14 [History] Clopidogrel [Plavix] 75 mg PO DAILY 10/12/14 [History] Mirtazapine [Remeron] 30 mg PO BEDTIME 10/12/14 [History] Nitroglycerin [Nitrostat] 1 tab SL ASDIRECTED 10/12/14 [History] Tiotropium [Spiriva HandiHaler] 18 mcg INH DAILY 10/12/14 [History] tiZANidine HCl [Zanaflex] 4 mg PO Q8H PRN 10/12/14 [History] atorvaSTATin [Lipitor] 80 mg PO BEDTIME 09/20/17 [History] Metoprolol Tartrate 50 mg PO BID 01/06/19 [History] Budesonide/Formoterol [Symbicort 160-4.5 MCG] 2 puff INH BID 03/02/19 [History] Diclofenac Sodium 4 gm TOP QID PRN 07/24/19 [History] Doxycycline [Vibramycin] 100 mg PO BID #4 cap 07/30/19 [Rx] Past Medical History HEENT History: Reports: Impaired Vision Cardiovascular History: Reports: CAD, [place], SOB on Exertion Respiratory History: Reports: COPD, Other (See Below) Other Respiratory History: lung cancer DESK ATTENDANT History: Reports: , Spontaneous , Other (See Below) Other DESK ATTENDANT History: c sections x3 Psychiatric History: Reports: Depression Oncologic (Cancer) History: Reports: Lung Other Oncologic History: tumor right leg x3 Dermatologic History: Reports: Cellulitis - Infectious Disease History Infectious Disease History: Reports: Chicken Pox - Past Surgical History HEENT Surgical History: Reports: Oral Surgery, Tonsillectomy Cardiovascular Surgical History: Reports: Other (See Below) Other Cardiovascular Surgeries/Procedures: angiogram GI Surgical History: Reports: Colonoscopy, Other (See Below) Other GI Surgeries/Procedures: polyps Other Neurological Surgeries/Procedures: cervical spine surgery Musculoskeletal Surgical History: Reports: Other (See Below) Other Musculoskeletal Surgeries/Procedures:: neck Social & Family History - Family History Cardiac: Reports: CAD - Tobacco Use Smoking Status *Q: Never Smoker - Caffeine Use Caffeine Use: Reports: None - Recreational Drug Use Recreational Drug Use: No Review of Systems - Review of Systems Review Of Systems: See Below Constitutional: Reports: No Symptoms Respiratory: Reports: No Symptoms Cardiovascular: Reports: No Symptoms Musculoskeletal: Reports: Leg Pain Skin: Reports: Erythema ED EXAM, GENERAL - Physical Exam Exam: See Below Free Text/Narrative:: Examination of the lower extremity I do not appreciate any significant edema in comparison between the 2 calves there is tenderness to the touch warm to the touch on the right lower extremity there is erythema which encompasses proximally above the leg ankle to mid calf mainly on the anterior aspect I do not appreciate any breaks in the skin Exam Limited By: No Limitations General Appearance: Alert, WD/WN, No Apparent Distress Respiratory/Chest: No Respiratory Distress Course - Vital Signs Last Recorded V/S: Last Vital Signs Temp 98.6 F 09/27/19 15:56 Pulse 74 09/27/19 15:56 Resp 22 H 09/27/19 15:56 BP 131/73 09/27/19 15:56 Pulse Ox 94 L 09/27/19 15:56 - Orders/Labs/Meds Labs: Laboratory Tests 09/27/19 09/27/19 09/27/19 Range/Units 16:15 16:15 16:15 WBC 6.6 (4.5-11.0) K/uL RBC 4.30 (3.30-5.50) M/uL Hgb 11.9 L (12.0-15.0) g/dL Hct 39.7 (36.0-48.0) % MCV 92 (80-98) fL MCH 28 (27-31) pg MCHC 30 L (32-36) % Plt Count 176 (150-400) K/uL Neut % (Auto) 73 H (36-66) % Lymph % (Auto) 16 L (24-44) % [place] % (Auto) 7 H (2-6) % Eos % (Auto) 4 (2-4) % Baso % (Auto) 1 (0-1) % PT (9.5-12.0) sec INR (0.80-1.20) APTT 26.0 L (27.0-36.0) sec D-Dimer, Quantitative (0.0-400.0) ng/mL Sodium 143 (140-148) mmol/L Potassium 3.8 (3.6-5.2) mmol/L Chloride 103 (100-108) mmol/L Carbon Dioxide 33 H (21-32) mmol/L Anion Gap 10.8 (5.0-14.0) mmol/L BUN 14 (7-18) mg/dL Creatinine 0.7 (0.6-1.0) mg/dL Est Cr Clr Drug Dosing 75.94 mL/min Estimated GFR (MDRD) > 60 (>60) Glucose 114 H (74-106) mg/dL Calcium 8.4 L (8.5-10.1) mg/dL Total Bilirubin 0.4 (0.2-1.0) mg/dL AST 25 (15-37) U/L ALT 30 (12-78) U/L Alkaline Phosphatase 60 (46-116) U/L Total Protein 6.5 (6.4-8.2) g/dL Albumin 3.2 L (3.4-5.0) g/dL Globulin 3.3 (2.3-3.5) g/dL Albumin/Globulin Ratio 1.0 L (1.2-2.2) 09/27/19 09/27/19 Range/Units 16:15 16:15 WBC (4.5-11.0) K/uL RBC (3.30-5.50) M/uL Hgb (12.0-15.0) g/dL Hct (36.0-48.0) % MCV (80-98) fL MCH (27-31) pg MCHC (32-36) % Plt Count (150-400) K/uL Neut % (Auto) (36-66) % Lymph % (Auto) (24-44) % [place] % (Auto) (2-6) % Eos % (Auto) (2-4) % Baso % (Auto) (0-1) % PT 10.0 (9.5-12.0) sec INR 0.92 (0.80-1.20) APTT (27.0-36.0) sec D-Dimer, Quantitative < 100 (0.0-400.0) ng/mL Sodium (140-148) mmol/L Potassium (3.6-5.2) mmol/L Chloride (100-108) mmol/L Carbon Dioxide (21-32) mmol/L Anion Gap (5.0-14.0) mmol/L BUN (7-18) mg/dL Creatinine (0.6-1.0) mg/dL Est Cr Clr Drug Dosing mL/min Estimated GFR (MDRD) (>60) Glucose (74-106) mg/dL Calcium (8.5-10.1) mg/dL Total Bilirubin (0.2-1.0) mg/dL AST (15-37) U/L ALT (12-78) U/L Alkaline Phosphatase (46-116) U/L Total Protein (6.4-8.2) g/dL Albumin (3.4-5.0) g/dL Globulin (2.3-3.5) g/dL Albumin/Globulin Ratio (1.2-2.2) Departure - Departure Time of Disposition: 16:56 Disposition: Home, Self-Care 01 Condition: Fair Clinical Impression: Cellulitis Qualifiers: Site of cellulitis: extremity Site of cellulitis of extremity: lower extremity Laterality: right Qualified Code(s): L03.115 - Cellulitis of right lower limb - Discharge Information Instructions: Cellulitis, Adult Referrals: PCP,None [Primary Care Provider] - Forms: ED Department Discharge Additional Instructions: Take full course of antibiotics, please followup with your primary care provider in 3-5 days if not better, please call return to the emergency department with worsening of symptoms. Sepsis Event Note - Focused Exam Vital Signs: Vital Signs Temp Pulse Resp BP Pulse Ox 09/27/19 15:56 98.6 F 74 22 H 131/73 94 L Date Exam was Performed: 09/27/19 Time Exam was Performed: 16:55 - Assessment/Plan Plan: Assessment Acuity = acute Site and laterality = cellulitis right lower extremity Etiology = probable bacterial cause Manifestations = none Location of injury = Home Lab values = CBC, CMP unremarkable d-dimer was negative Plan I did review lab work with her elect to treat empirically Bactrim DS 1 tab p.o. twice daily x7 days follow-up primary care 3 to 5 days if no improvement This note was dictated using [employer] voice recognition software please call with any questions on syntax or grammar.
== END 2019-09-27 17:07 | disposition home or self-care (01) ==
LOC: JP.ED 15:27
DX: L03.115 Cellulitis of right lower limb (principal); I25.10 Atherosclerotic heart disease of native coronary artery without angina pectoris; I25.2 Old myocardial infarction; J44.9 Chronic obstructive pulmonary disease, unspecified; Z79.82 Long term (current) use of aspirin; Z79.899 Other long term (current) drug therapy; Z88.1 Allergy status to other antibiotic agents; Z88.8 Allergy status to other drugs, medicaments and biological substances
CPT/HCPCS: 36415; 80053; 85025; 85379; 85610; 85730; 99283

== ENCOUNTER 2020-11-18 14:39 | Emergency (ER) | payer MEDICARE, MEDICAID ==
--- NOTE | 2020-11-18 15:23 | EDM.PDOC ---
ED HPI GENERAL MEDICAL PROBLEM - General Chief Complaint: Chest Pain Stated Complaint: difficult time breathing Time Seen by Provider: 11/18/20 15:05 Source of Information: Reports: Patient, Family History Limitations: Reports: No Limitations - History of Present Illness INITIAL COMMENTS - FREE TEXT/NARRATIVE: 60-year-old female with significant COPD, has had intermittent sharp chest pains for the past 2 days not related to activity. She feels more shortness of breath than she usually does as well. She has home O2. No fevers or chills, no productive cough. Denies nausea or vomiting, palpitations, peripheral edema or orthopnea. She has been woken up with the pain several times. Today she was at a local gathering at [employer] when she developed the pain again so decided to come in because she was close to the hospital. It lasts anywhere from 3 minutes up to 10 minutes. Some radiation up into the neck, no diaphoresis, no nausea or vomiting. She has been worked up for cardiac issues in the past with stress tests and angiograms and has never had to have interventions. Onset: Sudden (Symptoms started fairly suddenly 3 days ago) Location: Reports: Chest Quality: Reports: Sharp, Stabbing Improves with: Reports: None Worsens with: Reports: None, Other (Seems to worsen at random) Associated Symptoms: Reports: Shortness of Breath (Shortness of breath is chronic) - Related Data Allergies Allergy/AdvReac Type Severity Reaction Status Date / Time cefazolin Allergy Itching Verified 11/18/20 14:53 cephalexin Allergy Itching Verified 11/18/20 14:53 paroxetine Allergy Itching Verified 11/18/20 14:53 roflumilast [From Daliresp] Allergy Other Verified 11/18/20 14:53 Home Meds: Home Meds Albuterol Sulfate [Proair Hfa] 2 puff INH QID 10/12/14 [History] Albuterol [Proventil Neb Soln] 1 vial INH QID PRN 10/12/14 [History] Aspirin [Halfprin] 81 mg PO DAILY 10/12/14 [History] Cholecalciferol (Vitamin D3) [Vitamin D3] 1,000 unit PO DAILY 10/12/14 [History] Clopidogrel [Plavix] 75 mg PO DAILY 10/12/14 [History] Mirtazapine [Remeron] 30 mg PO BEDTIME 10/12/14 [History] Nitroglycerin [Nitrostat] 1 tab SL ASDIRECTED 10/12/14 [History] Tiotropium [Spiriva HandiHaler] 18 mcg INH DAILY 10/12/14 [History] tiZANidine HCl [Zanaflex] 4 mg PO Q8H PRN 10/12/14 [History] atorvaSTATin [Lipitor] 80 mg PO BEDTIME 09/20/17 [History] Metoprolol Tartrate 50 mg PO BID 01/06/19 [History] Budesonide/Formoterol [Symbicort 160-4.5 MCG] 2 puff INH BID 03/02/19 [History] Diclofenac Sodium 4 gm TOP QID PRN 07/24/19 [History] Past Medical History HEENT History: Reports: Impaired Vision Cardiovascular History: Reports: CAD, [place], SOB on Exertion Respiratory History: Reports: COPD, Other (See Below) Other Respiratory History: lung cancer Gastrointestinal History: Reports: None 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: , Spontaneous , Other (See Below) Other FUR OPERATOR History: c sections x3 Musculoskeletal History: Reports: None Neurological History: Reports: None Psychiatric History: Reports: Depression Hematologic History: Reports: Anticoagulation Therapy Oncologic (Cancer) History: Reports: Lung Other Oncologic History: tumor right leg x3 Dermatologic History: Reports: Cellulitis - Infectious Disease History Infectious Disease History: Reports: Chicken Pox - Past Surgical History Head Surgeries/Procedures: Reports: None HEENT Surgical History: Reports: Oral Surgery, Tonsillectomy Cardiovascular Surgical History: Reports: Other (See Below) Other Cardiovascular Surgeries/Procedures: angiogram Respiratory Surgical History: Reports: Lung Biopsies GI Surgical History: Reports: Colonoscopy, Other (See Below) Other GI Surgeries/Procedures: polyps Other Neurological Surgeries/Procedures: cervical spine surgery Musculoskeletal Surgical History: Reports: Other (See Below) Other Musculoskeletal Surgeries/Procedures:: neck Oncologic Surgical History: Reports: None Dermatological Surgical History: Reports: None Social & Family History - Family History Cardiac: Reports: CAD - Tobacco Use Tobacco Use Status *Q: Former Tobacco User Used Tobacco, but Quit: Yes Month/Year Tobacco Last Used: 2004 Second Hand Smoke Exposure: No - Caffeine Use Caffeine Use: Reports: None - Recreational Drug Use Recreational Drug Use: No ED ROS GENERAL - Review of Systems Review Of Systems: See Below Constitutional: Denies: Fever, Chills HEENT: Denies: Throat Pain Respiratory: Reports: Shortness of Breath, Cough. Denies: Sputum Cardiovascular: Reports: Chest Pain, Dyspnea on Exertion (Chronic and stable). Denies: Palpitations GI/Abdominal: Reports: No Symptoms : Reports: No Symptoms Musculoskeletal: Reports: No Symptoms Skin: Reports: Pallor Neurological: Reports: No Symptoms Psychiatric: Reports: No Symptoms ED EXAM, GENERAL - Physical Exam Exam: See Below Exam Limited By: No Limitations General Appearance: Alert, No Apparent Distress, Other (Looks uncomfortable but not distressed) Eye Exam: Bilateral Eye: Normal Inspection Head: Atraumatic Neck: Non-Tender Respiratory/Chest: Lungs Clear, Decreased Breath Sounds (Marked decreased breath sounds throughout) Cardiovascular: Regular Rate, Rhythm. No: Tachycardia GI/Abdominal: Non-Tender Extremities: Normal Inspection. No: Pedal Edema Neurological: Alert, Oriented Course - Vital Signs Last Recorded V/S: Last Vital Signs Temp 98.2 F 11/18/20 15:03 Pulse 79 11/18/20 15:40 Resp 19 11/18/20 15:40 BP 127/68 11/18/20 15:40 Pulse Ox 93 L 11/18/20 15:40 - Orders/Labs/Meds Orders: Active Orders 24 hr Category Date Time Status Chest 2V [CR] Routine Exams 11/18/20 15:18 Taken EKG 12 Lead [EK] Routine Ther 11/18/20 15:18 Ordered Labs: Laboratory Tests 11/18/20 11/18/20 Range/Units 15:18 15:18 WBC 5.1 (4.5-11.0) K/uL RBC 4.29 (3.30-5.50) M/uL Hgb 12.2 (12.0-15.0) g/dL Hct 39.5 (36.0-48.0) % MCV 92 (80-98) fL MCH 28 (27-31) pg MCHC 31 L (32-36) % Plt Count 180 (150-400) K/uL Neut % (Auto) 64.1 (36-66) % Lymph % (Auto) 24.0 (24-44) % [place] % (Auto) 7.0 H (2-6) % Eos % (Auto) 4.3 H (2-4) % Baso % (Auto) 0.6 (0-1) % Sodium 147 (140-148) mmol/L Potassium 4.1 (3.6-5.2) mmol/L Chloride 105 (100-108) mmol/L Carbon Dioxide 34 H (21-32) mmol/L Anion Gap 12.1 (5.0-14.0) mmol/L BUN 18 (7-18) mg/dL Creatinine 1.1 H D (0.6-1.0) mg/dL Est Cr Clr Drug Dosing 47.72 mL/min Estimated GFR (MDRD) 50 L (>60) Glucose 102 (74-106) mg/dL Calcium 8.7 (8.5-10.1) mg/dL Total Bilirubin 0.3 (0.2-1.0) mg/dL AST 21 (15-37) U/L ALT 29 (12-78) U/L Alkaline Phosphatase 63 (46-116) U/L Troponin I < 0.017 (0.000-0.056) ng/mL Total Protein 7.1 (6.4-8.2) g/dL Albumin 3.8 (3.4-5.0) g/dL Globulin 3.3 (2.3-3.5) g/dL Albumin/Globulin Ratio 1.2 (1.2-2.2) Meds: Medications Discontinued Medications Generic Name Dose Route Start Last Admin Trade Name Freq PRN Reason Stop Dose Admin Methylprednisolone Sodium Succinate 125 mg 11/18/20 16:16 11/18/20 16:29 Methylprednisolone Sodium Succinate 125 Mg/2 Ml Sdv IVPUSH 11/18/20 16:17 125 mg ONETIME ONE Administration - Re-Assessments/Exams Free Text/Narrative Re-Assessment/Exam: 11/18/20 16:35 CBC, CMP, troponin and two-view chest x-ray were obtained. Labs were reassuri ng, troponin was negative, but chest x-ray confirmed very advanced COPD. I think she is having painful COPD exacerbation, she was given 125 mg of Solu- Medrol and will start a Medrol Dosepak tomorrow. She can return if worsening such as increasing shortness of breath, more persistent pain, fevers, or other concerns. Departure - Departure Time of Disposition: 16:44 Disposition: Home, Self-Care 01 Clinical Impression: COPD exacerbation, Atypical chest pain - Discharge Information Instructions: Nonspecific Chest Pain, Adult, [id number] Referrals: Michelle Carmen MD [Primary Care Provider] - Forms: ED Department Discharge Care Plan Goals: Start Medrol Dosepak tomorrow as scheduled, increase activity as tolerated and recheck anytime if worsening such as increased shortness of breath, increased pain or fever. Otherwise consider rechecking in 4 to 6 days if not improving satisfactorily. Sepsis Event Note (ED) - Evaluation Sepsis Screening Result: No Definite Risk - My Orders Last 24 Hours: My Active Orders 11/18/20 15:18 Chest 2V [CR] Routine EKG 12 Lead [EK] Routine - Assessment/Plan Last 24 Hours: My Active Orders 11/18/20 15:18 Chest 2V [CR] Routine EKG 12 Lead [EK] Routine
[2020-11-18 15:41] VITALS: BP 127/68; PULSE 79
[2020-11-18] MEDS ORDERED: methylPREDNISolone Sodium Succinate 125 MG/2 ML SDV IVPUSH ONE (16:16)
--- NOTE | 2020-11-21 09:40 | CR ---
CHEST: 2 view CLINICAL HISTORY:Dyspnea COMPARISON:CT 08/15/2020 FINDINGS: Lungs are moderately emphysematous. The heart size, pulmonary vascularity and hilar structures are normal. No infiltrate effusion or pneumothorax is seen. There is postsurgical scarring in the both upper lobes. IMPRESSION: Moderate emphysematous change No acute cardiopulmonary process.
== END 2020-11-18 16:56 | disposition home or self-care (01) ==
LOC: JP.ED 14:39
DX: J44.1 Chronic obstructive pulmonary disease with (acute) exacerbation (principal); I25.10 Atherosclerotic heart disease of native coronary artery without angina pectoris; I25.2 Old myocardial infarction; Z79.82 Long term (current) use of aspirin; Z79.899 Other long term (current) drug therapy; Z88.1 Allergy status to other antibiotic agents; Z88.5 Allergy status to narcotic agent; Z87.891 Personal history of nicotine dependence
CPT/HCPCS: 36415; 71046; 80053; 84484; 85025; 93005; 96374; 99285; J2930

== ENCOUNTER 2021-01-17 16:29 | Emergency (ER) | payer MEDICARE, MEDICAID ==
[2021-01-17 16:47] VITALS: PULSE 74
--- NOTE | 2021-01-17 17:16 | EDM.PDOC ---
ED HPI GENERAL MEDICAL PROBLEM - General Chief Complaint: Chest Pain Stated Complaint: CHEST PAIN Time Seen by Provider: 01/17/21 17:10 Source of Information: Reports: Patient, Old Records, RN History Limitations: Reports: No Limitations - History of Present Illness INITIAL COMMENTS - FREE TEXT/NARRATIVE: 61 yo female smoker presents with resolved chest pain. She had it for about 30 min at home. She describes it as central chest radiating to her neck. She tried Naprosyn and antacids without any clear relief. She has had this a couple times a week lately not related to eating or exertion. There was no diaphoresis. She says she has a pHx of [place], DVT R leg, and poor leg circulation. Is on oxygen at home for her COPD. Onset: Unknown/Unsure Duration: Week(s):, Resolved Prior to Arrival, Waxing/Waning Quality: Reports: Other ("pain", not able to elaborate) Severity: Moderate Improves with: Reports: Other (? time) Worsens with: Reports: Other (unsure) Context: Reports: Other (See HPI) Associated Symptoms: Reports: Chest Pain. 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, Other (see below) (antacids) - Related Data Allergies Allergy/AdvReac Type Severity Reaction Status Date / Time cefazolin Allergy Itching Verified 01/17/21 16:53 cephalexin Allergy Itching Verified 01/17/21 16:53 paroxetine Allergy Itching Verified 01/17/21 16:53 roflumilast [From Daliresp] Allergy Other Verified 01/17/21 16:53 Home Meds: Home Meds Albuterol [Proventil Neb Soln] 1 vial INH QID PRN 10/12/14 [History] Aspirin [Halfprin] 81 mg PO DAILY 10/12/14 [History] Cholecalciferol (Vitamin D3) [Vitamin D3] 1,000 unit PO DAILY 10/12/14 [History] Clopidogrel [Plavix] 75 mg PO DAILY 10/12/14 [History] Mirtazapine [Remeron] 30 mg PO BEDTIME 10/12/14 [History] Nitroglycerin [Nitrostat] 1 tab SL ASDIRECTED 10/12/14 [History] Tiotropium [Spiriva HandiHaler] 18 mcg INH DAILY 10/12/14 [History] tiZANidine HCl [Zanaflex] 4 mg PO Q8H PRN 10/12/14 [History] atorvaSTATin [Lipitor] 80 mg PO BEDTIME 09/20/17 [History] Metoprolol Tartrate 50 mg PO BID 01/06/19 [History] Budesonide/Formoterol [Symbicort 160-4.5 MCG] 2 puff INH BID 03/02/19 [History] Diclofenac Sodium 4 gm TOP QID PRN 07/24/19 [History] Past Medical History HEENT History: Reports: Impaired Vision Cardiovascular History: Reports: CAD, [place], SOB on Exertion Respiratory History: Reports: COPD, Other (See Below) Other Respiratory History: lung cancer Gastrointestinal History: Reports: None Genitourinary History: Reports: None 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: , 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 , Other (See Below) Other STRATEGY ASSOCIATE History: c sections x3 Musculoskeletal History: Reports: None Neurological History: Reports: None Psychiatric History: Reports: Depression Hematologic History: Reports: Anticoagulation Therapy Oncologic (Cancer) History: Reports: Lung Other Oncologic History: tumor right leg x3 Dermatologic History: Reports: Cellulitis - Infectious Disease History Infectious Disease History: Reports: Chicken Pox - Past Surgical History Head Surgeries/Procedures: Reports: None HEENT Surgical History: Reports: Oral Surgery, Tonsillectomy Cardiovascular Surgical History: Reports: Other (See Below) Other Cardiovascular Surgeries/Procedures: angiogram Respiratory Surgical History: Reports: Lung Biopsies GI Surgical History: Reports: Colonoscopy, Other (See Below) Other GI Surgeries/Procedures: polyps Female Surgical History: Reports: Section Neurological Surgical History: Reports: Other (See Below) Other Neurological Surgeries/Procedures: cervical spine surgery Musculoskeletal Surgical History: Reports: Other (See Below) Other Musculoskeletal Surgeries/Procedures:: neck Oncologic Surgical History: Reports: None Dermatological Surgical History: Reports: None Social & Family History - Family History Cardiac: Reports: CAD - Tobacco Use Tobacco Use Status *Q: Never Tobacco User Second Hand Smoke Exposure: No - Caffeine Use Caffeine Use: Reports: None - Recreational Drug Use Recreational Drug Use: No ED ROS GENERAL - Review of Systems Review Of Systems: See Below Constitutional: Reports: No Symptoms HEENT: Reports: No Symptoms Respiratory: Reports: No Symptoms Cardiovascular: Reports: Chest Pain Endocrine: Reports: No Symptoms GI/Abdominal: Reports: No Symptoms : Reports: No Symptoms Musculoskeletal: Reports: No Symptoms Skin: Reports: No Symptoms Neurological: Reports: No Symptoms Psychiatric: Reports: No Symptoms ED EXAM, GENERAL - Physical Exam Exam: See Below Exam Limited By: No Limitations General Appearance: Alert, WD/WN, No Apparent Distress, Other (appears older than her stated age. ) Eye Exam: Bilateral Eye: Normal Inspection Ears: Normal External Exam, Normal Canal, Hearing Grossly Normal Ear Exam: Bilateral Ear: Auricle Normal, Canal Normal Nose: Normal Inspection, No Blood Throat/Mouth: Normal Inspection, Normal Lips, Normal Oropharynx, Normal Voice, No Airway Compromise Head: Atraumatic, Normocephalic Neck: Normal Inspection Respiratory/Chest: No Respiratory Distress, Lungs Clear, No Accessory Muscle Use, Chest Non-Tender, Decreased Breath Sounds. No: Normal Breath Sounds Cardiovascular: Regular Rate, Rhythm, No Edema GI/Abdominal: Normal Bowel Sounds, Soft, Non-Tender, No Distention Extremities: Normal Inspection, Normal Range of Motion, Non-Tender, No Pedal Edema Neurological: Alert, Oriented, CN II-XII Intact, Normal Cognition, No Motor/Sensory Deficits Psychiatric: Normal Affect, Normal Mood Skin Exam: Warm, Dry, Intact, Normal Color, No Rash #1 Interpretation EKG Date: 01/17/21 Time: 17:00 Rhythm: NSR Rate (Beats/Min): 73 Lackey: RAD-Right Lackey Deviation P-Wave: Present QRS: Normal ST-T: Normal QT: Normal Comparison: No Change Course - Vital Signs Last Recorded V/S: Last Vital Signs Temp 36.4 C 01/17/21 16:57 Pulse 74 01/17/21 17:23 Resp 16 01/17/21 17:23 BP 155/65 H 01/17/21 17:23 Pulse Ox 92 L 01/17/21 17:23 - Orders/Labs/Meds Orders: Active Orders 24 hr Category Date Time Status EKG Documentation Completion [RC] ASDIRECTED Care 01/17/21 16:55 Active EKG 12 Lead [EK] Routine Ther 01/17/21 16:55 Ordered Labs: Laboratory Tests 01/17/21 Range/Units 17:36 Troponin I < 0.017 (0.000-0.056) ng/mL Departure - Departure Time of Disposition: 18:03 Disposition: Home, Self-Care 01 Condition: Good Clinical Impression: Atypical chest pain Referrals: Michelle Carmen MD [Primary Care Provider] - Forms: ED Department Discharge Additional Instructions: Take omeprazole 40 mg daily. May sure you take your baby aspirin with a meal. Take Gaviscon 30 ml as needed for a return of your symptoms. If the Gaviscon does not help almost immediately, then return to the ER for evaluation. See your doctor for recheck within the week. Sepsis Event Note (ED) - Evaluation Sepsis Screening Result: No Definite Risk - Focused Exam Vital Signs: Vital Signs Temp Pulse Resp BP Pulse Ox 01/17/21 17:23 74 16 155/65 H 92 L 01/17/21 16:57 36.4 C 74 18 181/71 H 93 L 01/17/21 16:45 36.4 C 74 18 181/71 H 93 L - My Orders Last 24 Hours: My Active Orders 01/17/21 16:55 EKG Documentation Completion [RC] ASDIRECTED EKG 12 Lead [EK] Routine - Assessment/Plan Last 24 Hours: My Active Orders 01/17/21 16:55 EKG Documentation Completion [RC] ASDIRECTED EKG 12 Lead [EK] Routine
[2021-01-17 17:23] VITALS: BP 155/65
[2021-01-17] MEDS ORDERED: Pantoprazole 40 MG Tab.CR PO SCH (18:15)
== END 2021-01-17 18:24 | disposition home or self-care (01) ==
LOC: JP.ED 16:29
DX: R07.89 Other chest pain (principal); I25.10 Atherosclerotic heart disease of native coronary artery without angina pectoris; I25.2 Old myocardial infarction; J44.9 Chronic obstructive pulmonary disease, unspecified; Z79.82 Long term (current) use of aspirin; Z79.899 Other long term (current) drug therapy; Z88.1 Allergy status to other antibiotic agents; Z88.8 Allergy status to other drugs, medicaments and biological substances
CPT/HCPCS: 36415; 84484; 93005; 99285; A9270

== ENCOUNTER 2022-12-17 17:11 | Emergency (ER) | payer MEDICARE, MEDICAID ==
[2022-12-17] MEDS ORDERED: Sodium Chloride 0.9% 10 ML Syringe FLUSH PRN (18:06)
[2022-12-17 18:13] LABS: BASOPHILS ABSOLUTE AUTO 0.03 K/uL (0.00-0.10); BASOPHILS PERCENT AUTO 0.3 % (0.1-1.3); EOSINOPHILS ABSOLUTE AUTO 0.54 K/uL (0.00-0.40); EOSINOPHILS PERCENT AUTO 6.3 % (0.0-5.4); HEMATOCRIT 38.1 % (34.3-46.0); HEMOGLOBIN 11.8 g/dL (11.2-15.5); IMMATURE GRAN ABSOLUTE AUTO 0.02 K/uL (0.00-0.23); IMMATURE GRAN PERCENT AUTO 0.2 % (0.0-0.7); LYMPHOCYTES ABSOLUTE AUTO 1.21 K/uL (0.8-3.3); LYMPHOCYTES PERCENT AUTO 14.1 % (11.4-47.7); MEAN CORPUSCULAR HEMOGLOBIN 28.3 pg (31.6-35.5); MEAN CORPUSCULAR VOLUME 91.4 fL (81.4-99.0); MONOCYTES ABSOLUTE AUTO 0.59 K/uL (0.20-0.90); MONOCYTES PERCENT AUTO 6.9 % (3.3-12.6); NEUTROPHILS ABSOLUTE AUTO 6.22 K/uL (1.0-7.6); NEUTROPHILS PERCENT AUTO 72.2 % (40.0-78.1); PLATELET COUNT,PLT 190 K/uL (130-375); RED BLOOD CELL COUNT 4.17 M/uL (3.77-5.24); WHITE BLOOD CELL COUNT,WBC 8.6 K/uL (3.2-11.0)
[2022-12-17 18:25] VITALS: BP 131/50; PULSE 72
[2022-12-17 18:33] LABS: PTT,PARTIAL THROMBOPLSTIN TIME 25.7 sec (21.8-27.3)
[2022-12-17 18:35] LABS: A/G RATIO 1.1 (1.2-2.2); ALANINE AMINOTRANSFERASE,ALT 21 U/L (12-78); ALBUMIN 3.4 g/dL (3.4-5.0); ALKALINE PHOSPHATASE 64 U/L (46-116); ANION GAP 7.9 mmol/L (5.0-14.0); ASPARTATE AMNIOTRANSFERASE,AST 18 U/L (15-37); BILIRUBIN TOTAL 0.3 mg/dL (0.2-1.0); BLOOD UREA NITROGEN,BUN 20 mg/dL (7-18); CALCIUM 8.7 mg/dL (8.5-10.1); CARBON DIOXIDE,CO2 33 mmol/L (21-32); CHLORIDE,CL 103 mmol/L (100-108); CREATININE 0.5 mg/dL (0.6-1.0); EST CRCL DRUG DOSING (CG) 101.74 mL/min; ESTIMATED GFR 105 mL/min (>60); GLUCOSE RANDOM 123 mg/dL (74-106); POTASSIUM,K 3.9 mmol/L (3.6-5.2); PROTEIN TOTAL,TP 6.6 g/dL (6.4-8.2); SODIUM,NA 140 mmol/L (140-148)
[2022-12-17] MEDS ORDERED: Sodium Chloride 0.9% 50 ML IV SCH (18:45)
[2022-12-17] MEDS ORDERED: Iopamidol 612 MG/ML 100 ML Bottle IV SCH (18:45)
[2022-12-17 19:13] LABS: APPEARANCE,URINE CLEAR (CLEAR); BILIRUBIN,URINE NEGATIVE (NEGATIVE); COLOR,URINE YELLOW (YELLOW); GLUCOSE,URINE NEGATIVE (NEGATIVE); KETONES,URINE NEGATIVE (NEGATIVE); LEUKOCYTE ESTERASE,URINE NEGATIVE (NEGATIVE); NITRITE,URINE NEGATIVE (NEGATIVE); OCCULT BLOOD,URINE NEGATIVE (NEGATIVE); PH,URINE 8.5 (5.0-8.0); PROTEIN,URINE NEGATIVE (NEGATIVE); UROBILINOGEN,URINE 0.2 EU/dL (0.2-1.0)
[2022-12-17 19:20] LABS: AMORPHOUS SEDIMENT,URINE RARE; BACTERIA,URINE NOT SEEN; EPITHELIAL CELLS,URINE RARE; MUCUS,URINE NOT SEEN; RBC,URINE 0-5 (0-5); WBC,URINE 0-5 (0-5)
== END 2022-12-17 20:58 | disposition home or self-care (01) ==
LOC: JP.ED 17:11
DX: K55.059 Acute (reversible) ischemia of intestine, part and extent unspecified (principal); I73.9 Peripheral vascular disease, unspecified; J44.9 Chronic obstructive pulmonary disease, unspecified; I10 Essential (primary) hypertension; I25.10 Atherosclerotic heart disease of native coronary artery without angina pectoris; Z88.1 Allergy status to other antibiotic agents; Z88.8 Allergy status to other drugs, medicaments and biological substances; Z79.82 Long term (current) use of aspirin; Z79.02 Long term (current) use of antithrombotics/antiplatelets; Z79.899 Other long term (current) drug therapy; Z20.822 Contact with and (suspected) exposure to COVID-19; Z86.718 Personal history of other venous thrombosis and embolism; Z85.118 Personal history of other malignant neoplasm of bronchus and lung
CPT/HCPCS: 36415; 74177; 80053; 81001; 83605; 83690; 85025; 85610; 85730; 99284; J3490; Q9967; U0002

== ENCOUNTER 2023-05-29 12:23 | Emergency (ER) | payer MEDICARE, MEDICAID ==
[2023-05-29] MEDS ORDERED: Albuterol/Ipratropium 3.0-0.5 MG/3 ML Neb Soln NEB ONE (13:25)
[2023-05-29 13:33] VITALS: BP 137/55; PULSE 66
[2023-05-29 13:50] LABS: BICARBONATE,ARTERIAL 32.9 mmol/L (22.0-26.0); CARBOXYHEMOGLOBIN 1.9 % (0.0-1.6); METHEMOGLOBIN 0.9 %; O2 SATURATION ARTERIAL 96.7 % (95.0-98.0); PCO2 ARTERIAL 61.3 mmHg (35.0-42.0); TOTAL HEMOGLOBIN 12.3 g/dL (12.0-16.0)
[2023-05-29 13:53] LABS: BASOPHILS ABSOLUTE AUTO 0.03 K/uL (0.00-0.10); BASOPHILS PERCENT AUTO 0.4 % (0.1-1.3); EOSINOPHILS ABSOLUTE AUTO 0.38 K/uL (0.00-0.40); EOSINOPHILS PERCENT AUTO 4.7 % (0.0-5.4); HEMATOCRIT 38.4 % (34.3-46.0); IMMATURE GRAN PERCENT AUTO 0.2 % (0.0-0.7); LYMPHOCYTES ABSOLUTE AUTO 1.27 K/uL (0.8-3.3); LYMPHOCYTES PERCENT AUTO 15.8 % (11.4-47.7); MEAN CORPUSCULAR HGB CONC 31.3 g/dL (31.6-35.5); MEAN CORPUSCULAR VOLUME 89.7 fL (81.4-99.0); MONOCYTES ABSOLUTE AUTO 0.46 K/uL (0.20-0.90); MONOCYTES PERCENT AUTO 5.7 % (3.3-12.6); NEUTROPHILS ABSOLUTE AUTO 5.88 K/uL (1.0-7.6); NEUTROPHILS PERCENT AUTO 73.2 % (40.0-78.1); PLATELET COUNT,PLT 178 K/uL (130-375); RED BLOOD CELL COUNT 4.28 M/uL (3.77-5.24)
[2023-05-29 13:54] LABS: IMMATURE GRAN ABSOLUTE AUTO 0.02 K/uL (0.00-0.23); PO2 ARTERIAL 80.3 mmHg (75.0-100.0)
[2023-05-29 14:23] LABS: A/G RATIO 1.1 (1.2-2.2); ALANINE AMINOTRANSFERASE,ALT 22 U/L (12-78); ALBUMIN 3.5 g/dL (3.4-5.0); ALKALINE PHOSPHATASE 61 U/L (46-116); ASPARTATE AMNIOTRANSFERASE,AST 22 U/L (15-37); BILIRUBIN TOTAL 0.3 mg/dL (0.2-1.0); BLOOD UREA NITROGEN,BUN 15 mg/dL (7-18); CALCIUM 8.5 mg/dL (8.5-10.1); CARBON DIOXIDE,CO2 34 mmol/L (21-32); CHLORIDE,CL 105 mmol/L (100-108); CREATININE 0.6 mg/dL (0.6-1.0); EST CRCL DRUG DOSING (CG) 83.67 mL/min; ESTIMATED GFR 100 mL/min (>60); GLUCOSE RANDOM 101 mg/dL (74-106); PROTEIN TOTAL,TP 6.8 g/dL (6.4-8.2); SODIUM,NA 142 mmol/L (140-148); TROPONIN I HIGH SENSITIVITY 5.9 pg/mL (<=60.3)
[2023-05-29 14:34] LABS: CORONAVIRUS COVID-19 NAA NEGATIVE (NEGATIVE); INFLUENZA A NAA NEGATIVE (NEGATIVE); INFLUENZA B NAA NEGATIVE (NEGATIVE); RESPIRATORY SYNCYTIAL VIR NAA NEGATIVE (NEGATIVE)
== END 2023-05-29 15:31 | disposition home or self-care (01) ==
LOC: JP.ED 12:23
DX: J44.9 Chronic obstructive pulmonary disease, unspecified (principal); I25.10 Atherosclerotic heart disease of native coronary artery without angina pectoris; I25.2 Old myocardial infarction; Z20.822 Contact with and (suspected) exposure to COVID-19; Z79.82 Long term (current) use of aspirin; Z87.891 Personal history of nicotine dependence; Z79.01 Long term (current) use of anticoagulants; Z88.1 Allergy status to other antibiotic agents; Z88.8 Allergy status to other drugs, medicaments and biological substances; Z79.899 Other long term (current) drug therapy
CPT/HCPCS: 0241U; 36415; 36600; 71046; 80053; 82803; 83605; 83880; 84484; 85025; 94640; 99285; J7620